=== PATIENT | female | born 1960 | race Caucasian/White ===

== ENCOUNTER → 2017-08-18 | Outpatient (CLI) | payer MEDICARE, OTHER ==
[2017-08-18 15:36] LABS: BASOPHILS ABSOLUTE AUTO 0.05 K/mm3 (0.00-0.23); BASOPHILS PERCENT AUTO 1 % (0-2); EOSINOPHILS ABSOLUTE AUTO 0.38 K/mm3 (0.00-0.68); EOSINOPHILS PERCENT AUTO 5 % (0-6); Hematocrit 44.4 % (33.0-51.0); Hemoglobin 14.5 g/dL (11.5-16.0); IMMATURE GRAN ABSOLUTE AUTO 0.05 K/mm3 (0.00-0.10); IMMATURE GRAN PERCENT AUTO 1 % (0-1); LYMPHOCYTES ABSOLUTE AUTO 2.38 K/mm3 (0.84-5.20); LYMPHOCYTES PERCENT AUTO 31 % (21-46); MONOCYTES ABSOLUTE AUTO 0.77 K/mm3 (0.16-1.47); MONOCYTES PERCENT AUTO 10 % (4-13); Mean Corpuscular HGB 28.7 pg (26.0-34.0); Mean Corpuscular HGB Conc 32.7 g/dL (31.5-36.5); Mean Corpuscular Volume 88 fL (80-100); Mean Platelet Volume 10.2 fL (9.1-12.4); NEUTROPHILS ABSOLUTE AUTO 4.08 K/mm3 (1.96-9.15); NEUTROPHILS PERCENT AUTO 53 % (41-73); Platelet Count 351 K/mm3 (150-400); RDW Coefficient Variation 14.2 % (11.7-14.2); RDW Standard Deviation 45.1 fL (35.1-46.3); Red Blood Cell Count 5.05 M/mm3 (3.80-5.20); White Blood Cell Count 7.71 K/mm3 (4.00-11.30)
[2017-08-18 15:57] LABS: Alanine Aminotransfer (ALT/SGP 50 U/L (12-78); Albumin, Blood 4.3 g/dL (3.4-5.0); Albumin/Globulin Ratio 1.2 (0.8-1.8); Alk Phos 90 U/L (40-126); Anion Gap 10 mmol/L (6-16); Aspartate Aminotrans (AST/SGOT 28 U/L (12-37); Bilirubin, Total 0.4 mg/dL (0.1-1.0); Blood Urea Nitrogen 18 mg/dL (8-24); Bun/Creatinine Ratio 23.4 (12.0-20.0); CO2, Blood 29 mmol/L (21-32); Calcium, Blood 9.9 mg/dL (8.5-10.1); Chloride, Blood 103 mmol/L (98-108); Creatinine, Blood 0.77 mg/dL (0.40-1.00); Globulin, Blood 3.5 g/dL (2.2-4.0); Glomerular Filtration Rate >60 (60-); Glucose, Blood 93 mg/dL (70-99); Potassium, Blood 4.3 mmol/L (3.5-5.5); Sodium, Blood 142 mmol/L (136-145); Total Protein, Blood 7.8 g/dL (6.4-8.2)
== END | disposition home or self-care (01) ==
LOC: LAB EV 15:17 → LAB SHORT 15:17
PROVIDERS: Physician Assistant
DX: J44.9 Chronic obstructive pulmonary disease, unspecified (principal)
CPT/HCPCS: 80053; 85025

== ENCOUNTER → 2018-08-07 | Outpatient (CLI) | payer MEDICARE, OTHER | LOC: LAB SHORT 19:01 → LAB 19:01 | DX: N39.0 Urinary tract infection, site not specified (principal) | CPT/HCPCS: 87086 ==

== ENCOUNTER → 2019-06-19 | Outpatient (CLI) | payer MEDICARE, OTHER ==
[2019-06-20 14:30] LABS: Stool Occult Bld Immuno 1 Negative (NEGATIVE)
== END | disposition home or self-care (01) ==
LOC: LAB SHORT 11:53 → LAB 11:53 → LAB FUT 05-14 15:05
PROVIDERS: Nurse Practitioner Family
DX: Z12.11 Encounter for screening for malignant neoplasm of colon (principal)
CPT/HCPCS: G0328

== ENCOUNTER → 2019-07-03 | Outpatient (CLI) | payer MEDICARE, OTHER | END | disposition home or self-care (01) | LOC: LAB 19:19 → LAB SHORT 19:19 | DX: R82.79 Other abnormal findings on microbiological examination of urine (principal) | CPT/HCPCS: 87086 ==

== ENCOUNTER 2019-09-13 09:44 | Observation (INO) | payer MEDICARE, OTHER ==
[~2019-09-13] VITALS: Ht 167.6 cm; Wt 102.5 kg
[2019-09-13 11:00] LABS: BASOPHILS ABSOLUTE AUTO 0.04 K/mm3 (0.00-0.23); BASOPHILS PERCENT AUTO 1 % (0-2); EOSINOPHILS ABSOLUTE AUTO 0.34 K/mm3 (0.00-0.68); EOSINOPHILS PERCENT AUTO 4 % (0-6); Hematocrit 43.8 % (33.0-51.0); IMMATURE GRAN ABSOLUTE AUTO 0.04 K/mm3 (0.00-0.10); IMMATURE GRAN PERCENT AUTO 1 % (0-1); LYMPHOCYTES ABSOLUTE AUTO 2.42 K/mm3 (0.84-5.20); LYMPHOCYTES PERCENT AUTO 28 % (21-46); MONOCYTES PERCENT AUTO 11 % (4-13); Mean Corpuscular HGB 28.6 pg (26.0-34.0); Mean Corpuscular Volume 90 fL (80-100); Mean Platelet Volume 10.2 fL (9.1-12.4); NEUTROPHILS PERCENT AUTO 56 % (41-73); Platelet Count 293 K/mm3 (150-400); RDW Coefficient Variation 14.8 % (11.7-14.2); RDW Standard Deviation 48.8 fL (35.1-46.3); Red Blood Cell Count 4.89 M/mm3 (3.80-5.20); White Blood Cell Count 8.54 K/mm3 (4.00-11.30)
[2019-09-13 11:15] LABS: Acetaminophen, Random 3.8 ug/mL (10.0-30.0); Alanine Aminotransfer (ALT/SGP 37 U/L (12-78); Albumin, Blood 3.9 g/dL (3.4-5.0); Albumin/Globulin Ratio 1.1 (0.8-1.8); Alk Phos 97 U/L (50-136); Anion Gap 8 mmol/L (6-16); Aspartate Aminotrans (AST/SGOT 30 U/L (12-37); Bilirubin, Total 0.2 mg/dL (0.1-1.0); Blood Urea Nitrogen 9 mg/dL (8-24); Bun/Creatinine Ratio 13.2 (12.0-20.0); CO2, Blood 27 mmol/L (21-32); Calcium, Blood 8.9 mg/dL (8.5-10.1); Chloride, Blood 105 mmol/L (98-108); Creatinine, Blood 0.68 mg/dL (0.40-1.00); Ethanol (Alcohol), Blood, Med <3 mg/dL; Globulin, Blood 3.7 g/dL (2.2-4.0); Glomerular Filtration Rate >60 (60-); Glucose, Blood 95 mg/dL (70-99); Potassium, Blood 4.1 mmol/L (3.5-5.5); Salicylate 6.6 mg/dL (2.8-20.0); Sodium, Blood 140 mmol/L (136-145); Total Protein, Blood 7.6 g/dL (6.4-8.2)
[2019-09-13 11:36] LABS: Source, Urine Clean Catch
[2019-09-13 11:39] LABS: Bilirubin, Urine Neg (Neg); Blood, Urine Neg (Neg); Glucose Qualitative, Urine Neg (Neg); Ketones, Urine Neg (Neg); Leukocyte Esterase, Urine Neg (Neg); Nitrite, Urine Neg (Neg); Protein, Urine Neg (Neg); Urobilinogen, Urine NORM (Normal)
[2019-09-13 11:40] LABS: Appearance, Urine Clear (Clear); Color, Urine Yellow (P-Yellow)
[2019-09-13 11:54] LABS: U Amphetamine Screen Not Detected; U Barbituate Screen Not Detected; U Benzodiazapine Screen Not Detected; U Buprenorphine Screen Not Detected; U Cannabinoids Screen Not Detected; U Cocaine Screen Not Detected; U Methadone Screen Not Detected; U Methamphetamine Screen Not Detected; U Opiates Screen Not Detected; U Oxycodone Screen Not Detected; U Propoxyphene Screen Not Detected
[2019-09-13] MEDS ORDERED: QUETIAPINE FUM400 MG PO (13:15)
[2019-09-13] MEDS ORDERED: BUSP10 PO (13:15)
[2019-09-13] MEDS ORDERED: LEVSOD50 PO (13:16)
[2019-09-13] MEDS ORDERED: ESCITALOPRAM OX20 M1 PO (13:16)
[2019-09-13] MEDS ORDERED: HYDHCL25 PO (13:17)
[2019-09-13] MEDS ORDERED: CYCLOBENZAPRINE5 MG PO (13:17)
[2019-09-13] MEDS ORDERED: Risperidone3 MG PO (13:17)
== END 2019-09-14 12:55 | disposition home or self-care (01) ==
LOC: ER 09:44 → EOR 09:45
PROVIDERS: ADMIT Emergency Medicine
DX: R45.851 Suicidal ideations (principal); R45.850 Homicidal ideations; F25.0 Schizoaffective disorder, bipolar type; J44.9 Chronic obstructive pulmonary disease, unspecified; F32.9 Major depressive disorder, single episode, unspecified; F41.9 Anxiety disorder, unspecified; Z79.899 Other long term (current) drug therapy; Z88.8 Allergy status to other drugs, medicaments and biological substances; Z88.0 Allergy status to penicillin; Z87.891 Personal history of nicotine dependence; G89.29 Other chronic pain
CPT/HCPCS: 36415; 80053; 81003; 81025; 84443; 85025; 99285; G0378; G0480; Q3014

== ENCOUNTER 2019-09-26 09:49 | Emergency (ER) | payer MEDICARE, OTHER ==
[~2019-09-26] VITALS: Ht 170.2 cm; Wt 99.8 kg
[~2019-09-26 09:49] MED LIST: BUSP10 PO; CYCLOBENZAPRINE5 MG PO; ESCITALOPRAM OX20 M1 PO; HYDHCL25 PO; LEVSOD50 PO; QUETIAPINE FUM400 MG PO; Risperidone3 MG PO
[2019-09-26 10:54] LABS: BASOPHILS ABSOLUTE AUTO 0.07 K/mm3 (0.00-0.23); BASOPHILS PERCENT AUTO 1 % (0-2); EOSINOPHILS ABSOLUTE AUTO 0.41 K/mm3 (0.00-0.68); EOSINOPHILS PERCENT AUTO 5 % (0-6); Hematocrit 47.4 % (33.0-51.0); Hemoglobin 15.5 g/dL (11.5-16.0); IMMATURE GRAN ABSOLUTE AUTO 0.08 K/mm3 (0.00-0.10); IMMATURE GRAN PERCENT AUTO 1 % (0-1); LYMPHOCYTES ABSOLUTE AUTO 2.77 K/mm3 (0.84-5.20); LYMPHOCYTES PERCENT AUTO 31 % (21-46); MONOCYTES ABSOLUTE AUTO 0.57 K/mm3 (0.16-1.47); MONOCYTES PERCENT AUTO 6 % (4-13); Mean Corpuscular HGB 29.3 pg (26.0-34.0); Mean Corpuscular HGB Conc 32.7 g/dL (31.5-36.5); Mean Corpuscular Volume 90 fL (80-100); Mean Platelet Volume 9.5 fL (9.1-12.4); NEUTROPHILS ABSOLUTE AUTO 5.17 K/mm3 (1.96-9.15); NEUTROPHILS PERCENT AUTO 57 % (41-73); Platelet Count 346 K/mm3 (150-400); RDW Standard Deviation 49.5 fL (35.1-46.3); Red Blood Cell Count 5.29 M/mm3 (3.80-5.20); White Blood Cell Count 9.07 K/mm3 (4.00-11.30)
[2019-09-26 11:15] LABS: Alanine Aminotransfer (ALT/SGP 28 U/L (12-78); Albumin, Blood 4.1 g/dL (3.4-5.0); Albumin/Globulin Ratio 1.1 (0.8-1.8); Alk Phos 92 U/L (50-136); Anion Gap 5 mmol/L (6-16); Aspartate Aminotrans (AST/SGOT 22 U/L (12-37); Bilirubin, Total 0.2 mg/dL (0.1-1.0); Blood Urea Nitrogen 11 mg/dL (8-24); Bun/Creatinine Ratio 15.7 (12.0-20.0); CO2, Blood 24 mmol/L (21-32); Calcium, Blood 8.7 mg/dL (8.5-10.1); Chloride, Blood 112 mmol/L (98-108); Globulin, Blood 3.9 g/dL (2.2-4.0); Glomerular Filtration Rate >60 (60-); Glucose, Blood 118 mg/dL (70-99); Potassium, Blood 3.8 mmol/L (3.5-5.5); Sodium, Blood 141 mmol/L (136-145)
[2019-09-26 11:18] LABS: Source, Urine Clean Catch
[2019-09-26 11:28] LABS: Bilirubin, Urine Neg (Neg); Blood, Urine 1+ (Neg); Glucose Qualitative, Urine Neg (Neg); Ketones, Urine Neg (Neg); Leukocyte Esterase, Urine 1+ (Neg); Nitrite, Urine Neg (Neg); Protein, Urine Neg (Neg); Urobilinogen, Urine NORM (Normal)
[2019-09-26 11:35] LABS: Appearance, Urine Clear (Clear); Color, Urine Yellow (P-Yellow)
[2019-09-26 11:36] LABS: Bacteria Few /hpf; Red Blood Cells, Urine 0-2 /hpf (0-2); Squamous Epithelial Cells Many /hpf (Few); White Blood Cells, Urine 0-2 /hpf (0-5)
[2019-09-26 11:37] LABS: Transitional Epithelial Cells Many /hpf (0-Rare)
== END 2019-09-26 14:10 | disposition home or self-care (01) ==
LOC: ER 09:49
PROVIDERS: Emergency Medicine
DX: R10.31 Right lower quadrant pain (principal); J44.9 Chronic obstructive pulmonary disease, unspecified; F31.9 Bipolar disorder, unspecified; F41.9 Anxiety disorder, unspecified; Z87.891 Personal history of nicotine dependence; Z88.0 Allergy status to penicillin; Z79.899 Other long term (current) drug therapy
CPT/HCPCS: 36415; 80053; 81001; 85025; 87086; 96374; 99284-25; J1885

== ENCOUNTER 2020-09-18 11:27 | Inpatient (IN) | payer MEDICARE, OTHER ==
[~2020-09-18] VITALS: Ht 170.2 cm; Wt 90.7 kg
[~2020-09-18 11:27] MED LIST changes: -BUSP10 PO; -ESCITALOPRAM OX20 M1 PO; -HYDHCL25 PO; -LEVSOD50 PO; -QUETIAPINE FUM400 MG PO
[2020-09-18 12:30] LABS: BASOPHILS ABSOLUTE AUTO 0.05 K/mm3 (0.00-0.23); BASOPHILS PERCENT AUTO 1 % (0-2); EOSINOPHILS ABSOLUTE AUTO 0.45 K/mm3 (0.00-0.68); EOSINOPHILS PERCENT AUTO 7 % (0-6); Hematocrit 47.9 % (33.0-51.0); Hemoglobin 14.8 g/dL (11.5-16.0); IMMATURE GRAN ABSOLUTE AUTO 0.08 K/mm3 (0.00-0.10); IMMATURE GRAN PERCENT AUTO 1 % (0-1); LYMPHOCYTES ABSOLUTE AUTO 2.35 K/mm3 (0.84-5.20); LYMPHOCYTES PERCENT AUTO 35 % (21-46); MONOCYTES ABSOLUTE AUTO 0.78 K/mm3 (0.16-1.47); MONOCYTES PERCENT AUTO 12 % (4-13); Mean Corpuscular HGB 27.4 pg (26.0-34.0); Mean Corpuscular HGB Conc 30.9 g/dL (31.5-36.5); Mean Corpuscular Volume 89 fL (80-100); Mean Platelet Volume 10.6 fL (9.1-12.4); NEUTROPHILS ABSOLUTE AUTO 3.04 K/mm3 (1.96-9.15); NEUTROPHILS PERCENT AUTO 45 % (41-73); Platelet Count 292 K/mm3 (150-400); RDW Coefficient Variation 15.6 % (11.7-14.2); RDW Standard Deviation 50.6 fL (35.1-46.3); White Blood Cell Count 6.75 K/mm3 (4.00-11.30)
[2020-09-18 12:55] LABS: Alanine Aminotransfer (ALT/SGP 50 U/L (12-78); Albumin, Blood 3.8 g/dL (3.4-5.0); Albumin/Globulin Ratio 0.9 (0.8-1.8); Alk Phos 118 U/L (50-136); Anion Gap 5 mmol/L (6-16); Aspartate Aminotrans (AST/SGOT 46 U/L (12-37); Bilirubin, Total 0.3 mg/dL (0.1-1.0); Blood Urea Nitrogen 12 mg/dL (8-24); Bun/Creatinine Ratio 16.8 (12.0-20.0); CO2, Blood 30 mmol/L (21-32); Calcium, Blood 9.5 mg/dL (8.5-10.1); Chloride, Blood 106 mmol/L (98-108); Creatinine, Blood 0.71 mg/dL (0.40-1.00); Globulin, Blood 4.2 g/dL (2.2-4.0); Glomerular Filtration Rate >60 (60-); Glucose, Blood 117 mg/dL (70-99); Potassium, Blood 4.5 mmol/L (3.5-5.5); Sodium, Blood 141 mmol/L (136-145); Troponin I <0.015 ng/mL (0.000-0.040)
[2020-09-18] MEDS ORDERED: BUSP10 PO (17:20)
[2020-09-18] MEDS ORDERED: HYDHCL25 PO (17:20)
[2020-09-18] MEDS ORDERED: EUTHYROX50 MCG PO (17:21)
[2020-09-18] MEDS ORDERED: OMEPRAZOLE20 MG PO (17:21)
[2020-09-18] MEDS ORDERED: QUETIAPINE FUM400 MG PO (17:22)
[2020-09-18] MEDS ORDERED: ESCITALOPRAM OX20 M1 PO (17:23)
[2020-09-18] MEDS ORDERED: NEURONTIN PO (17:23)
[2020-09-18 20:27] LABS: Adenovirus Not Detected (NOT DETECT); Bordetella pertussis Not Detected (NOT DETECT); Chlamydophila pneumoniae Not Detected (NOT DETECT); Coronavirus 229E Not Detected (NOT DETECT); Coronavirus HKU1 Not Detected (NOT DETECT); Coronavirus NL63 Not Detected (NOT DETECT); Coronavirus OC43 Not Detected (NOT DETECT); Human Metapneumovirus Not Detected (NOT DETECT); Human Rhinovirus/Enterovirus Not Detected (NOT DETECT); Influenza A/2009-H1 Not Detected (NOT DETECT); Influenza A/H1 Not Detected (NOT DETECT); Influenza A/H3 Not Detected (NOT DETECT); Influenza B Not Detected (NOT DETECT); Mycoplasma pneumoniae Not Detected (NOT DETECT); Parainfluenza Virus 1 Not Detected (NOT DETECT); Parainfluenza Virus 2 Not Detected (NOT DETECT); Parainfluenza Virus 3 Not Detected (NOT DETECT); Parainfluenza Virus 4 Not Detected (NOT DETECT); Respiratory Syncytial Virus Not Detected (NOT DETECT); SARS-Cov-2 (COVID-19), BioFire Not Detected (NOT DETECT)
--- NOTE | 2020-09-19 04:55 | NUR ---
MARINA MANAGER SUMMARY A/OX4, SBA TO BATHROOM. C/O MILD SUBSTERNAL CHEST PAIN, NITRO PATCH IN PLACE. TELE RUNNING SR IN THE 60-70S. CURRENTLY ON 2L VIA NC WITH SATS GREATER THAN 92. NO ACUTE CHANGES AT THIS TIME. BED IN LOWEST POSITION WITH CALL LIGHT IN REACH. WILL CONTINUE TO MONITOR AND REPORT TO ONCOMING RN.
--- NOTE | 2020-09-19 17:24 | NUR ---
PT HAS BEEN AOX4 AND COOPERATIVE OF CARE. PT HAD A MILD EDEN EARLIER AND WAS TREATED PER EMAR. PT HAS BEEN INDEPENDENT IN ROOM AND DOING WELL. IV CAME OUT AND NO MORE IV MEDS WERE NEEDED SO DR DUNLAP ADDED A NO IV ACCESS ORDER TO EMAR. PT HAS CALL LIGHT WITHIN REACH. WILL CONTINUE TO MONITOR.
--- NOTE | 2020-09-20 03:44 | NUR ---
GENERAL WAREHOUSE WORKER SUMMARY A/OX4, SBA TO BATHROOM. SLEEP STUDY IN PROGRESS T/O NIGHT. TELE RUNNING SINUS IN THE 70'S. DENIES CHEST PAIN/PRESSURE. NO ACUTE CHANGES AT THIS TIME. BED IN LOWEST POSITION WITH CALL LIGHT IN REACH. WILL CONTINUE TO MONITOR AND REPORT TO ONCOMING RN.
--- NOTE | 2020-09-20 14:15 | NUR ---
echocardiogram complete
--- NOTE | 2020-09-20 17:36 | NUR ---
PT AOX4 AND COOPERATIVE OF CARE. PT IS ON 5L NASAL CANULA AND HAS BEEN ENCOURAGED TO USE SPIROMETER. PT STATES SHE JUST DOES NOTE FEEL VERY GOOD TODAY. PT IS INDEPENDENT IN ROOM AND CALLS APPROPRIATELY. PT RESTING IN BED WILL CONTINUE TO MONITOR CALL LIGHT WITHIN REACH.
--- NOTE | 2020-09-20 18:36 | NUR ---
PT HAD AN INCREASED CBG DUE TO SODA PRIOR TO TEST.
--- NOTE | 2020-09-21 03:51 | NUR ---
REHABILITATION INSPECTOR SUMMARY A/OX4, IND TO BATHROOM. DENIES CHEST PAIN/PRESSURE. TELE IN PLACE RUNNING SR IN THE 70S. CURRENTLY ON 5L VIA NC WITH SATS GREATER THAN 92. ENCOURAGED USE OF INCENTIVE SPIROMETER. NO ACUTE CHANGES AT THIS TIME. BED IN LOWEST POSITION WITH CALL LIGHT IN REACH. WILL CONTINUE TO MONITOR AND REPORT TO ONCOMING RN.
[2020-09-21] MEDS ORDERED: PRED20 PO (15:58)
--- NOTE | 2020-09-21 18:08 | NUR ---
PT DISCHARGED AT 1800. PORTABLE O2 TANK WAS BROUGHT TO ROOM EARLIER FOR DISCHARGE. ALL PAPERWORK WAS REVIEWED AND SIGNED WITH [facility] FOR PT. ALL PERSONAL BELONGINGS COLLECT AND TAKEN WITH PT. NO DISTRESS NOTED. PT HAD FRIEND TO TRANSPORT HOME. [facility] [place].PT ESCORTED OUT IN WHEEL CHAIR TO ENTRANCE BY THIS MODEL MAKER FIREARMS.
[2021-02-16] MEDS ORDERED: HYDHCL25 PO (18:33)
[2021-02-16] MEDS ORDERED: ATOR10 (18:35)
[2021-02-16] MEDS ORDERED: METFORMIN HCL500 M3 PO (18:39)
== END 2020-09-21 17:57 | disposition home or self-care (01) | DRG 189 ==
LOC: ER 11:27 → MEDS 21:24
PROVIDERS: Emergency Medicine; Physician Assistant; ADMIT Internal Medicine
DX: J96.01 Acute respiratory failure with hypoxia (principal); J44.1 Chronic obstructive pulmonary disease with (acute) exacerbation; E66.2 Morbid (severe) obesity with alveolar hypoventilation; K76.0 Fatty (change of) liver, not elsewhere classified; E03.9 Hypothyroidism, unspecified; E88.81 Metabolic syndrome and other insulin resistance; K21.9 Gastro-esophageal reflux disease without esophagitis; M79.7 Fibromyalgia; Z87.891 Personal history of nicotine dependence; F25.0 Schizoaffective disorder, bipolar type; Z68.31 Body mass index [BMI] 31.0-31.9, adult; G47.30 Sleep apnea, unspecified; Z20.822 Contact with and (suspected) exposure to COVID-19
CPT/HCPCS: 0202U; 36415; 71046; 71260; 80053; 82947; 83880; 84145; 84443; 84484; 85025; 85379; 93005; 93010; 93306; 94640; 94760; 94761; 94762; 96374-59; 99285-25; A9270; J1650; J1885; J2930; J7512; Q9967

== ENCOUNTER 2020-11-23 11:38 | Emergency (ER) | payer MEDICARE, OTHER ==
[~2020-11-23] VITALS: Ht 165.1 cm; Wt 102.1 kg
[~2020-11-23 11:38] MED LIST changes: +BUSP10 PO; +ESCITALOPRAM OX20 M1 PO; +EUTHYROX50 MCG PO; +HYDHCL25 PO; +NEURONTIN PO; +OMEPRAZOLE20 MG PO; +PRED20 PO; +QUETIAPINE FUM400 MG PO
[2020-11-23 12:20] LABS: BASOPHILS ABSOLUTE AUTO 0.07 K/mm3 (0.00-0.23); BASOPHILS PERCENT AUTO 1 % (0-2); EOSINOPHILS ABSOLUTE AUTO 0.38 K/mm3 (0.00-0.68); EOSINOPHILS PERCENT AUTO 5 % (0-6); Hematocrit 44.3 % (33.0-51.0); Hemoglobin 14.2 g/dL (11.5-16.0); IMMATURE GRAN ABSOLUTE AUTO 0.08 K/mm3 (0.00-0.10); IMMATURE GRAN PERCENT AUTO 1 % (0-1); LYMPHOCYTES ABSOLUTE AUTO 2.49 K/mm3 (0.84-5.20); LYMPHOCYTES PERCENT AUTO 31 % (21-46); MONOCYTES ABSOLUTE AUTO 0.92 K/mm3 (0.16-1.47); MONOCYTES PERCENT AUTO 11 % (4-13); Mean Corpuscular HGB Conc 32.1 g/dL (31.5-36.5); Mean Corpuscular Volume 87 fL (80-100); Mean Platelet Volume 10.3 fL (9.1-12.4); NEUTROPHILS ABSOLUTE AUTO 4.12 K/mm3 (1.96-9.15); NEUTROPHILS PERCENT AUTO 51 % (41-73); Platelet Count 325 K/mm3 (150-400); RDW Coefficient Variation 15.5 % (11.7-14.2); RDW Standard Deviation 49.4 fL (35.1-46.3); Red Blood Cell Count 5.07 M/mm3 (3.80-5.20); White Blood Cell Count 8.06 K/mm3 (4.00-11.30)
[2020-11-23 12:50] LABS: Alanine Aminotransfer (ALT/SGP 58 U/L (12-78); Albumin, Blood 3.9 g/dL (3.4-5.0); Alk Phos 125 U/L (50-136); Anion Gap 4 mmol/L (6-16); Aspartate Aminotrans (AST/SGOT 40 U/L (12-37); Bilirubin, Total 0.3 mg/dL (0.1-1.0); Blood Urea Nitrogen 9 mg/dL (8-24); Bun/Creatinine Ratio 14.2 (12.0-20.0); CO2, Blood 28 mmol/L (21-32); Calcium, Blood 9.1 mg/dL (8.5-10.1); Chloride, Blood 107 mmol/L (98-108); Creatinine, Blood 0.63 mg/dL (0.40-1.00); Globulin, Blood 3.9 g/dL (2.2-4.0); Glomerular Filtration Rate >60 (60-); Glucose, Blood 120 mg/dL (70-99); Potassium, Blood 4.1 mmol/L (3.5-5.5); Sodium, Blood 139 mmol/L (136-145); Total Protein, Blood 7.8 g/dL (6.4-8.2)
[2020-11-23 14:11] LABS: Source, Urine Clean Catch
[2020-11-23 14:14] LABS: Appearance, Urine Hazy (Clear); Bilirubin, Urine Neg (Neg); Blood, Urine 5+ (Neg); Color, Urine Yellow (P-Yellow); Glucose Qualitative, Urine Neg (Neg); Ketones, Urine Neg (Neg); Leukocyte Esterase, Urine 3+ (Neg); Nitrite, Urine Neg (Neg); Protein, Urine 1+ (Neg); Specific Gravity, Urine 1.015 (1.003-1.022); Urobilinogen, Urine NORM (Normal)
[2020-11-23 14:26] LABS: Bacteria Many /hpf; Squamous Epithelial Cells Many /hpf (Few); White Blood Cells, Urine 25-50 /hpf (0-5)
[2020-11-23 14:27] LABS: Red Blood Cells, Urine 0-2 /hpf (0-2)
[2020-11-23 14:28] LABS: Transitional Epithelial Cells Rare /hpf (0-Rare)
[2020-11-23] MEDS ORDERED: SULTRIDS PO (15:04)
== END 2020-11-23 15:17 | disposition home or self-care (01) ==
LOC: ER 11:38
PROVIDERS: Physician Assistant
DX: N20.0 Calculus of kidney (principal); Z79.899 Other long term (current) drug therapy; N39.0 Urinary tract infection, site not specified
CPT/HCPCS: 36415; 74176; 76830; 76856; 80053; 81001; 83690; 85025; 87086; 93005; 93010; 96374; 99284-25; A9270-GY; J2405

== ENCOUNTER 2020-12-09 14:27 | Emergency (ER) | payer MEDICARE ==
[~2020-12-09] VITALS: Ht 165.1 cm; Wt 115.7 kg
[~2020-12-09 14:27] MED LIST changes: +SULTRIDS PO
[2020-12-09 16:05] LABS: BASOPHILS ABSOLUTE AUTO 0.04 K/mm3 (0.00-0.23); BASOPHILS PERCENT AUTO 1 % (0-2); EOSINOPHILS ABSOLUTE AUTO 0.69 K/mm3 (0.00-0.68); EOSINOPHILS PERCENT AUTO 13 % (0-6); Hematocrit 44.3 % (33.0-51.0); Hemoglobin 14.3 g/dL (11.5-16.0); IMMATURE GRAN ABSOLUTE AUTO 0.03 K/mm3 (0.00-0.10); IMMATURE GRAN PERCENT AUTO 1 % (0-1); LYMPHOCYTES ABSOLUTE AUTO 1.79 K/mm3 (0.84-5.20); LYMPHOCYTES PERCENT AUTO 32 % (21-46); MONOCYTES ABSOLUTE AUTO 0.88 K/mm3 (0.16-1.47); MONOCYTES PERCENT AUTO 16 % (4-13); Mean Corpuscular HGB 28.4 pg (26.0-34.0); Mean Corpuscular HGB Conc 32.3 g/dL (31.5-36.5); Mean Corpuscular Volume 88 fL (80-100); Mean Platelet Volume 10.6 fL (9.1-12.4); NEUTROPHILS ABSOLUTE AUTO 2.11 K/mm3 (1.96-9.15); NEUTROPHILS PERCENT AUTO 38 % (41-73); Platelet Count 367 K/mm3 (150-400); RDW Coefficient Variation 15.9 % (11.7-14.2); RDW Standard Deviation 50.6 fL (35.1-46.3); Red Blood Cell Count 5.03 M/mm3 (3.80-5.20); White Blood Cell Count 5.54 K/mm3 (4.00-11.30)
[2020-12-09 16:56] LABS: Source, Urine Clean Catch
[2020-12-09 17:20] LABS: Appearance, Urine Hazy (Clear); Bilirubin, Urine Neg (Neg); Blood, Urine Neg (Neg); Color, Urine Yellow (P-Yellow); Glucose Qualitative, Urine Neg (Neg); Ketones, Urine Neg (Neg); Leukocyte Esterase, Urine Neg (Neg); Nitrite, Urine Neg (Neg); Protein, Urine Neg (Neg); Urobilinogen, Urine NORM (Normal)
[2020-12-09 17:24] LABS: Alanine Aminotransfer (ALT/SGP 57 U/L (12-78); Albumin, Blood 3.7 g/dL (3.4-5.0); Albumin/Globulin Ratio 0.9 (0.8-1.8); Alk Phos 111 U/L (50-136); Anion Gap 2 mmol/L (6-16); Aspartate Aminotrans (AST/SGOT 44 U/L (12-37); Bilirubin, Total 0.3 mg/dL (0.1-1.0); Blood Urea Nitrogen 10 mg/dL (8-24); CO2, Blood 29 mmol/L (21-32); Calcium, Blood 8.8 mg/dL (8.5-10.1); Chloride, Blood 106 mmol/L (98-108); Creatinine, Blood 0.77 mg/dL (0.40-1.00); Glomerular Filtration Rate >60 (60-); Glucose, Blood 95 mg/dL (70-99); Potassium, Blood 4.2 mmol/L (3.5-5.5); Sodium, Blood 137 mmol/L (136-145); Total Protein, Blood 7.7 g/dL (6.4-8.2)
[2020-12-09 17:32] LABS: Bacteria Many /hpf; Red Blood Cells, Urine 0-2 /hpf (0-2); Squamous Epithelial Cells Mod /hpf (Few); White Blood Cells, Urine 0-2 /hpf (0-5)
[2020-12-09] MEDS ORDERED: LIDO700A20 TOP (17:48)
[2021-02-16] MEDS ORDERED: HYDHCL25 PO (18:33)
[2021-02-16] MEDS ORDERED: ATOR10 (18:35)
[2021-02-16] MEDS ORDERED: METFORMIN HCL500 M3 PO (18:39)
== END 2020-12-09 18:25 | disposition home or self-care (01) ==
LOC: ER 14:27
PROVIDERS: Physician Assistant
DX: M54.9 Dorsalgia, unspecified (principal); J44.9 Chronic obstructive pulmonary disease, unspecified; Z88.0 Allergy status to penicillin; Z88.8 Allergy status to other drugs, medicaments and biological substances; Z79.899 Other long term (current) drug therapy; Z87.891 Personal history of nicotine dependence
CPT/HCPCS: 36415; 80053; 81001; 85025; 87086; 99284; A9270

== ENCOUNTER 2021-03-07 14:16 | Observation (INO) | payer MEDICARE ==
[~2021-03-07] VITALS: Ht 170.2 cm; Wt 115.7 kg
[~2021-03-07 14:16] MED LIST changes: +ATOR10; +LIDO700A20 TOP; +METFORMIN HCL500 M3 PO
[2021-03-07 15:19] LABS: BASOPHILS ABSOLUTE AUTO 0.07 K/mm3 (0.00-0.23); BASOPHILS PERCENT AUTO 1 % (0-2); EOSINOPHILS ABSOLUTE AUTO 0.24 K/mm3 (0.00-0.68); EOSINOPHILS PERCENT AUTO 2 % (0-6); Hematocrit 48.6 % (33.0-51.0); Hemoglobin 15.6 g/dL (11.5-16.0); IMMATURE GRAN ABSOLUTE AUTO 0.08 K/mm3 (0.00-0.10); IMMATURE GRAN PERCENT AUTO 1 % (0-1); LYMPHOCYTES ABSOLUTE AUTO 2.67 K/mm3 (0.84-5.20); LYMPHOCYTES PERCENT AUTO 25 % (21-46); MONOCYTES ABSOLUTE AUTO 0.93 K/mm3 (0.16-1.47); MONOCYTES PERCENT AUTO 9 % (4-13); Mean Corpuscular HGB 28.5 pg (26.0-34.0); Mean Corpuscular HGB Conc 32.1 g/dL (31.5-36.5); Mean Corpuscular Volume 89 fL (80-100); Mean Platelet Volume 10.1 fL (9.1-12.4); NEUTROPHILS ABSOLUTE AUTO 6.85 K/mm3 (1.96-9.15); NEUTROPHILS PERCENT AUTO 63 % (41-73); Platelet Count 444 K/mm3 (150-400); RDW Standard Deviation 48.7 fL (35.1-46.3); Red Blood Cell Count 5.47 M/mm3 (3.80-5.20); White Blood Cell Count 10.84 K/mm3 (4.00-11.30)
[2021-03-07 15:49] LABS: Alanine Aminotransfer (ALT/SGP 52 U/L (12-78); Albumin, Blood 3.8 g/dL (3.4-5.0); Albumin/Globulin Ratio 0.8 (0.8-1.8); Alk Phos 115 U/L (50-136); Anion Gap 3 mmol/L (6-16); Aspartate Aminotrans (AST/SGOT 46 U/L (12-37); Bilirubin, Total 0.5 mg/dL (0.1-1.0); Blood Urea Nitrogen 19 mg/dL (8-24); Bun/Creatinine Ratio 29.1 (12.0-20.0); CO2, Blood 29 mmol/L (21-32); Calcium, Blood 9.5 mg/dL (8.5-10.1); Chloride, Blood 106 mmol/L (98-108); Creatinine, Blood 0.65 mg/dL (0.40-1.00); Ethanol (Alcohol), Blood, Med <3 mg/dL; Globulin, Blood 4.7 g/dL (2.2-4.0); Glomerular Filtration Rate >60 (60-); Glucose, Blood 146 mg/dL (70-99); Potassium, Blood 4.4 mmol/L (3.5-5.5); Salicylate <1.7 mg/dL (2.8-20.0); Sodium, Blood 138 mmol/L (136-145); Total Protein, Blood 8.5 g/dL (6.4-8.2)
[2021-03-07 15:53] LABS: Acetaminophen, Random <2.0 ug/mL (10.0-30.0)
[2021-03-07] MEDS ORDERED: CLOZ100 PO (16:29)
[2021-03-07 16:41] LABS: Source, Urine Clean Catch
[2021-03-07 16:47] LABS: Appearance, Urine Clear (Clear); Bilirubin, Urine Neg (Neg); Blood, Urine Neg (Neg); Color, Urine Yellow (P-Yellow); Glucose Qualitative, Urine Neg (Neg); Ketones, Urine Neg (Neg); Leukocyte Esterase, Urine 1+ (Neg); Nitrite, Urine Neg (Neg); Protein, Urine 1+ (Neg); Urobilinogen, Urine 2+ (Normal)
[2021-03-07 16:57] LABS: Bacteria Few /hpf; Red Blood Cells, Urine 0-2 /hpf (0-2); Squamous Epithelial Cells Mod /hpf (Few)
[2021-03-07 17:03] LABS: U Benzodiazapine Screen DETECTED
[2021-03-07 17:04] LABS: U Amphetamine Screen Not Detected; U Barbituate Screen Not Detected; U Buprenorphine Screen Not Detected; U Cannabinoids Screen Not Detected; U Cocaine Screen Not Detected; U Methadone Screen Not Detected; U Methamphetamine Screen Not Detected; U Opiates Screen Not Detected; U Oxycodone Screen Not Detected; U Phencyclidine Screen Not Detected; U Propoxyphene Screen Not Detected
[2021-03-08 03:29] LABS: SARS-Cov-2 (COVID-19) PCR, MMC NEGATIVE (NEGATIVE)
== END 2021-03-09 20:41 | disposition home or self-care (01) ==
LOC: ER 14:16 → EOR 14:17
PROVIDERS: Physician Assistant; ADMIT Emergency Medicine
DX: F25.0 Schizoaffective disorder, bipolar type (principal); E11.9 Type 2 diabetes mellitus without complications; E03.9 Hypothyroidism, unspecified; K21.9 Gastro-esophageal reflux disease without esophagitis; E66.01 Morbid (severe) obesity due to excess calories; J44.9 Chronic obstructive pulmonary disease, unspecified; G89.29 Other chronic pain; Z88.0 Allergy status to penicillin; Z79.84 Long term (current) use of oral hypoglycemic drugs; Z91.5 Personal history of self-harm; Z81.8 Family history of other mental and behavioral disorders; Z20.822 Contact with and (suspected) exposure to COVID-19
CPT/HCPCS: 36415; 80053; 81001; 85025; 86592; 87086; 99285; A9270; G0378; G0480; U0004

== ENCOUNTER 2021-12-03 04:56 | Observation (INO) | payer MEDICARE ==
[~2021-12-03] VITALS: Ht 170.2 cm; Wt 65.8 kg
[~2021-12-03 04:56] MED LIST changes: +ATORVASTATIN CA20 MG PO; +CLOZ100 PO; +DOXE50 PO; +GABA300 PO; +HYDROXYZINE PAM25 MG PO; +[UNRECOGNIZED DRUG - CODE] PO
[2021-12-03 09:42] LABS: Hematocrit 41.4 % (33.0-51.0); Hemoglobin 13.7 g/dL (11.5-16.0); Mean Corpuscular HGB 28.4 pg (26.0-34.0); Mean Corpuscular HGB Conc 33.1 g/dL (31.5-36.5); Mean Corpuscular Volume 86 fL (80-100); Mean Platelet Volume 10.2 fL (9.1-12.4); Platelet Count 300 K/mm3 (150-400); RDW Coefficient Variation 12.7 % (11.7-14.2); RDW Standard Deviation 39.7 fL (35.1-46.3); Red Blood Cell Count 4.82 M/mm3 (3.80-5.20); White Blood Cell Count 6.78 K/mm3 (4.00-11.30)
[2021-12-03 10:02] LABS: Ethanol (Alcohol), Blood, Med <3 mg/dL; Salicylate <1.7 mg/dL (2.8-20.0)
[2021-12-03 10:05] LABS: Acetaminophen, Random <2.0 ug/mL (10.0-30.0); Alanine Aminotransfer (ALT/SGP 26 U/L (12-78); Albumin, Blood 3.3 g/dL (3.4-5.0); Albumin/Globulin Ratio 0.9 (0.8-1.8); Alk Phos 63 U/L (50-136); Anion Gap 7 mmol/L (6-16); Aspartate Aminotrans (AST/SGOT 13 U/L (12-37); Bilirubin, Total 0.6 mg/dL (0.1-1.0); Blood Urea Nitrogen 10 mg/dL (8-24); CO2, Blood 26 mmol/L (21-32); Calcium, Blood 8.2 mg/dL (8.5-10.1); Chloride, Blood 104 mmol/L (98-108); Creatinine, Blood 0.53 mg/dL (0.40-1.00); Globulin, Blood 3.6 g/dL (2.2-4.0); Glomerular Filtration Rate >60 (60-); Glucose, Blood 116 mg/dL (70-99); Potassium, Blood 3.3 mmol/L (3.5-5.5); Sodium, Blood 137 mmol/L (136-145); Total Protein, Blood 6.9 g/dL (6.4-8.2)
[2021-12-03 10:10] LABS: BAND PERCENT MAN 20 % (0-8); BASOPHILS PERCENT MAN 0 % (0-2); EOSINOPHILS ABSOLUTE MAN 0.33 K/mm3 (0.00-0.68); EOSINOPHILS PERCENT MAN 5 % (0-6); LYMPHOCYTES ABSOLUTE MAN 1.83 K/mm3 (0.84-5.20); LYMPHOCYTES PERCENT MAN 27 % (21-46); MONOCYTES ABSOLUTE MAN 1.55 K/mm3 (0.16-1.47); MONOCYTES PERCENT MAN 23 % (4-13); NEUTROPHILS ABSOLUTE MAN 3.05 K/mm3 (1.96-9.15); SEG NEUTROPHILS PERCENT MAN 25 % (41-73); TOTAL CELLS COUNTED 100
[2021-12-03 10:59] LABS: Influenza A, PCR NEGATIVE (NEGATIVE); Influenza B, PCR NEGATIVE (NEGATIVE); Resp Syncytial Virus, PCR NEGATIVE (NEGATIVE); SARS-Cov-2 (COVID-19) PCR, MMC NEGATIVE (NEGATIVE)
[2021-12-03 22:09] LABS: Source, Urine Clean Catch
[2021-12-03 22:17] LABS: Bilirubin, Urine Neg (Neg); Blood, Urine 1+ (Neg); Glucose Qualitative, Urine Neg (Neg); Ketones, Urine Neg (Neg); Leukocyte Esterase, Urine Neg (Neg); Nitrite, Urine Neg (Neg); Protein, Urine 1+ (Neg); Urobilinogen, Urine NORM (Normal)
[2021-12-03 22:27] LABS: U Amphetamine Screen Not Detected; U Barbituate Screen Not Detected; U Methamphetamine Screen Not Detected
[2021-12-03 22:28] LABS: U Benzodiazapine Screen DETECTED; U Buprenorphine Screen Not Detected; U Cannabinoids Screen DETECTED; U Cocaine Screen Not Detected; U Methadone Screen Not Detected; U Opiates Screen Not Detected; U Oxycodone Screen Not Detected; U Phencyclidine Screen Not Detected; U Propoxyphene Screen Not Detected
[2021-12-03 22:41] LABS: Appearance, Urine Clear (Clear); Color, Urine Yellow (P-Yellow)
[2021-12-03 22:44] LABS: Bacteria Not Seen /hpf; Red Blood Cells, Urine 0-2 /hpf (0-2); Squamous Epithelial Cells Not Seen /hpf (Few); White Blood Cells, Urine Not Seen /hpf (0-5)
== END 2021-12-10 12:30 | disposition home or self-care (01) ==
LOC: ER 04:56 → EOR 04:57
PROVIDERS: ADMIT Emergency Medicine
DX: F25.0 Schizoaffective disorder, bipolar type (principal); K76.0 Fatty (change of) liver, not elsewhere classified; N28.1 Cyst of kidney, acquired; D72.825 Bandemia; R10.31 Right lower quadrant pain; G89.29 Other chronic pain; E03.9 Hypothyroidism, unspecified; E11.9 Type 2 diabetes mellitus without complications; E78.5 Hyperlipidemia, unspecified; F45.8 Other somatoform disorders; E66.9 Obesity, unspecified; J44.9 Chronic obstructive pulmonary disease, unspecified; F17.290 Nicotine dependence, other tobacco product, uncomplicated; Z88.0 Allergy status to penicillin; Z79.899 Other long term (current) drug therapy; Z79.84 Long term (current) use of oral hypoglycemic drugs; Z20.822 Contact with and (suspected) exposure to COVID-19
CPT/HCPCS: 0241U; 71045; 80053; 81001; 81025; 83036; 85025; 86592; 93005; 93010; 96372; 99285-25; A9270; G0378; G0480; J1885; J2060

== ENCOUNTER 2021-12-11 23:41 | Emergency (ER) | payer MEDICARE ==
[~2021-12-11] VITALS: Ht 167.6 cm; Wt 63.5 kg
== END 2021-12-12 00:33 | disposition home or self-care (01) ==
LOC: ER 23:41
DX: R10.2 Pelvic and perineal pain (principal); J44.9 Chronic obstructive pulmonary disease, unspecified; F31.9 Bipolar disorder, unspecified; F41.9 Anxiety disorder, unspecified; Z79.899 Other long term (current) drug therapy; Z79.84 Long term (current) use of oral hypoglycemic drugs; Z88.0 Allergy status to penicillin
CPT/HCPCS: 99283

== ENCOUNTER 2022-03-25 10:38 | Observation (INO) | payer MEDICARE ==
[~2022-03-25] VITALS: Ht 170.2 cm; Wt 90.7 kg
[2022-03-25 14:34] LABS: BASOPHILS ABSOLUTE AUTO 0.07 K/mm3 (0.00-0.23); BASOPHILS PERCENT AUTO 1 % (0-2); EOSINOPHILS ABSOLUTE AUTO 0.07 K/mm3 (0.00-0.68); EOSINOPHILS PERCENT AUTO 1 % (0-6); Hematocrit 48.7 % (33.0-51.0); Hemoglobin 15.9 g/dL (11.5-16.0); IMMATURE GRAN ABSOLUTE AUTO 0.04 K/mm3 (0.00-0.10); IMMATURE GRAN PERCENT AUTO 0 % (0-1); LYMPHOCYTES ABSOLUTE AUTO 3.24 K/mm3 (0.84-5.20); LYMPHOCYTES PERCENT AUTO 31 % (21-46); MONOCYTES ABSOLUTE AUTO 0.93 K/mm3 (0.16-1.47); MONOCYTES PERCENT AUTO 9 % (4-13); Mean Corpuscular HGB 28.9 pg (26.0-34.0); Mean Corpuscular HGB Conc 32.6 g/dL (31.5-36.5); Mean Corpuscular Volume 89 fL (80-100); Mean Platelet Volume 10.5 fL (9.1-12.4); NEUTROPHILS ABSOLUTE AUTO 6.16 K/mm3 (1.96-9.15); NEUTROPHILS PERCENT AUTO 59 % (41-73); Platelet Count 345 K/mm3 (150-400); RDW Coefficient Variation 13.6 % (11.7-14.2); RDW Standard Deviation 43.9 fL (35.1-46.3); White Blood Cell Count 10.51 K/mm3 (4.00-11.30)
[2022-03-25 14:55] LABS: Alanine Aminotransfer (ALT/SGP 33 U/L (12-78); Albumin, Blood 4.3 g/dL (3.4-5.0); Albumin/Globulin Ratio 1.1 (0.8-1.8); Alk Phos 79 U/L (50-136); Anion Gap 8 mmol/L (6-16); Aspartate Aminotrans (AST/SGOT 23 U/L (12-37); Bilirubin, Total 0.6 mg/dL (0.1-1.0); Blood Urea Nitrogen 13 mg/dL (8-24); Bun/Creatinine Ratio 19.6 (12.0-20.0); CO2, Blood 26 mmol/L (21-32); Calcium, Blood 9.8 mg/dL (8.5-10.1); Chloride, Blood 106 mmol/L (98-108); Creatinine, Blood 0.66 mg/dL (0.40-1.00); Ethanol (Alcohol), Blood, Med <3 mg/dL; Globulin, Blood 3.8 g/dL (2.2-4.0); Glomerular Filtration Rate 101 (60-); Glucose, Blood 102 mg/dL (70-99); Potassium, Blood 3.7 mmol/L (3.5-5.5); Salicylate <1.7 mg/dL (2.8-20.0); Sodium, Blood 140 mmol/L (136-145); Total Protein, Blood 8.1 g/dL (6.4-8.2)
[2022-03-25 14:57] LABS: Acetaminophen, Random <2.0 ug/mL (10.0-30.0)
[2022-03-25 15:01] LABS: Source, Urine Clean Catch
[2022-03-25 15:44] LABS: Appearance, Urine Hazy (Clear); Blood, Urine 1+ (Neg); Color, Urine Amber (P-Yellow); Glucose Qualitative, Urine Neg (Neg); Ketones, Urine 2+ (Neg); Leukocyte Esterase, Urine 1+ (Neg); Nitrite, Urine Neg (Neg); Protein, Urine 2+ (Neg); Urobilinogen, Urine NORM (Normal)
[2022-03-25 16:00] LABS: Bilirubin, Urine 1+ (Neg)
[2022-03-25 16:01] LABS: Bacteria Many /hpf; Calcium Oxalate Crystals Few /hpf; Mucus Light (0-Heavy); Squamous Epithelial Cells Few /hpf (Few)
[2022-03-25 16:02] LABS: Red Blood Cells, Urine 0-2 /hpf (0-2)
[2022-03-25 16:08] LABS: U Amphetamine Screen Not Detected; U Barbituate Screen Not Detected; U Benzodiazapine Screen Not Detected; U Buprenorphine Screen Not Detected; U Cannabinoids Screen DETECTED; U Cocaine Screen Not Detected; U Methadone Screen Not Detected; U Methamphetamine Screen Not Detected; U Opiates Screen Not Detected; U Oxycodone Screen Not Detected; U Phencyclidine Screen Not Detected; U Propoxyphene Screen Not Detected
[2022-03-25 17:40] LABS: Influenza A, PCR NEGATIVE (NEGATIVE); Influenza B, PCR NEGATIVE (NEGATIVE); Resp Syncytial Virus, PCR NEGATIVE (NEGATIVE); SARS-Cov-2 (COVID-19) PCR, MMC NEGATIVE (NEGATIVE)
[2022-04-01] MEDS ORDERED: QUET200 PO (15:55)
[2022-04-01] MEDS ORDERED: HYDHCL25 PO (15:56)
== END 2022-04-01 17:24 | disposition home or self-care (01) ==
LOC: ER 10:38 → EOR 10:39
PROVIDERS: Physician Assistant; ADMIT Emergency Medicine
DX: F25.0 Schizoaffective disorder, bipolar type (principal); J44.9 Chronic obstructive pulmonary disease, unspecified; R94.31 Abnormal electrocardiogram [ECG] [EKG]; E78.5 Hyperlipidemia, unspecified; E66.9 Obesity, unspecified; E03.9 Hypothyroidism, unspecified; K21.9 Gastro-esophageal reflux disease without esophagitis; U07.1 COVID-19; Z88.0 Allergy status to penicillin; Z87.891 Personal history of nicotine dependence
CPT/HCPCS: 0241U; 80053; 81001; 81025; 85025; 87086; 93005; 93010; 94640; 94664; 96372; 99285-25; A9270; G0378; G0480; J1790; M0222; Q3014

== ENCOUNTER 2022-05-18 10:26 | Emergency (ER) | payer MEDICARE ==
[~2022-05-18] VITALS: Ht 170.2 cm; Wt 65.8 kg
[~2022-05-18 10:26] MED LIST changes: +QUET200 PO
[2022-05-18 11:07] LABS: BASOPHILS ABSOLUTE AUTO 0.04 K/mm3 (0.00-0.23); BASOPHILS PERCENT AUTO 1 % (0-2); EOSINOPHILS ABSOLUTE AUTO 0.11 K/mm3 (0.00-0.68); EOSINOPHILS PERCENT AUTO 1 % (0-6); Hematocrit 46.6 % (33.0-51.0); Hemoglobin 15.1 g/dL (11.5-16.0); IMMATURE GRAN ABSOLUTE AUTO 0.03 K/mm3 (0.00-0.10); IMMATURE GRAN PERCENT AUTO 0 % (0-1); LYMPHOCYTES PERCENT AUTO 26 % (21-46); MONOCYTES ABSOLUTE AUTO 0.63 K/mm3 (0.16-1.47); MONOCYTES PERCENT AUTO 8 % (4-13); Mean Corpuscular HGB 28.7 pg (26.0-34.0); Mean Corpuscular HGB Conc 32.4 g/dL (31.5-36.5); Mean Corpuscular Volume 89 fL (80-100); Mean Platelet Volume 10.3 fL (9.1-12.4); NEUTROPHILS ABSOLUTE AUTO 5.28 K/mm3 (1.96-9.15); NEUTROPHILS PERCENT AUTO 65 % (41-73); Platelet Count 342 K/mm3 (150-400); RDW Standard Deviation 45.1 fL (35.1-46.3); Red Blood Cell Count 5.26 M/mm3 (3.80-5.20); White Blood Cell Count 8.19 K/mm3 (4.00-11.30)
[2022-05-18 11:17] LABS: Albumin, Blood 3.9 g/dL (3.4-5.0); Bilirubin, Total 0.5 mg/dL (0.1-1.0); Bun/Creatinine Ratio 13.9 (12.0-20.0); Calcium, Blood 9.3 mg/dL (8.5-10.1); Creatinine, Blood 0.58 mg/dL (0.40-1.00); Globulin, Blood 3.9 g/dL (2.2-4.0); Potassium, Blood 3.5 mmol/L (3.5-5.5); Total Protein, Blood 7.8 g/dL (6.4-8.2)
[2022-05-18 12:33] LABS: Source, Urine Clean Catch
[2022-05-18] MEDS ORDERED: PROM25 PO ×2 (12:58→13:45)
[2022-05-18 13:00] LABS: Appearance, Urine Cloudy (Clear); Bilirubin, Urine Neg (Neg); Blood, Urine 2+ (Neg); Color, Urine Yellow (P-Yellow); Glucose Qualitative, Urine Neg (Neg); Ketones, Urine Neg (Neg); Leukocyte Esterase, Urine 3+ (Neg); Nitrite, Urine Neg (Neg); Protein, Urine 1+ (Neg); Urobilinogen, Urine NORM (Normal)
[2022-05-18 13:10] LABS: Bacteria Many /hpf; Red Blood Cells, Urine 0-2 /hpf (0-2); Squamous Epithelial Cells Many /hpf (Few)
[2022-05-18 13:11] LABS: Transitional Epithelial Cells Rare /hpf (0-Rare)
[2022-05-18 13:12] LABS: Calcium Oxalate Crystals Rare /hpf
== END 2022-05-18 13:49 | disposition home or self-care (01) ==
LOC: ER 10:26
PROVIDERS: Physician Assistant
DX: R11.2 Nausea with vomiting, unspecified (principal); R42 Dizziness and giddiness; J44.9 Chronic obstructive pulmonary disease, unspecified; F31.9 Bipolar disorder, unspecified; F25.0 Schizoaffective disorder, bipolar type; Z87.891 Personal history of nicotine dependence; Z79.899 Other long term (current) drug therapy
CPT/HCPCS: 80053; 81001; 83690; 85025; 87086; 93005; 93010; J2405; J2550

== ENCOUNTER 2022-05-30 10:32 | Emergency (ER) | payer MEDICARE ==
[~2022-05-30] VITALS: Ht 170.2 cm; Wt 68.0 kg
[~2022-05-30 10:32] MED LIST changes: +PROM25 PO
[2022-05-30 13:53] LABS: BASOPHILS ABSOLUTE AUTO 0.04 K/mm3 (0.00-0.23); BASOPHILS PERCENT AUTO 0 % (0-2); EOSINOPHILS ABSOLUTE AUTO 0.03 K/mm3 (0.00-0.68); EOSINOPHILS PERCENT AUTO 0 % (0-6); Hematocrit 44.1 % (33.0-51.0); Hemoglobin 15.3 g/dL (11.5-16.0); IMMATURE GRAN ABSOLUTE AUTO 0.06 K/mm3 (0.00-0.10); IMMATURE GRAN PERCENT AUTO 1 % (0-1); LYMPHOCYTES ABSOLUTE AUTO 1.83 K/mm3 (0.84-5.20); LYMPHOCYTES PERCENT AUTO 15 % (21-46); MONOCYTES ABSOLUTE AUTO 0.97 K/mm3 (0.16-1.47); MONOCYTES PERCENT AUTO 8 % (4-13); Mean Corpuscular HGB 29.5 pg (26.0-34.0); Mean Corpuscular HGB Conc 34.7 g/dL (31.5-36.5); Mean Corpuscular Volume 85 fL (80-100); Mean Platelet Volume 10.6 fL (9.1-12.4); NEUTROPHILS PERCENT AUTO 77 % (41-73); Platelet Count 335 K/mm3 (150-400); RDW Coefficient Variation 13.5 % (11.7-14.2); RDW Standard Deviation 42.3 fL (35.1-46.3); Red Blood Cell Count 5.18 M/mm3 (3.80-5.20); White Blood Cell Count 12.63 K/mm3 (4.00-11.30)
[2022-05-30 14:23] LABS: Albumin, Blood 4.1 g/dL (3.4-5.0); Albumin/Globulin Ratio 1.1 (0.8-1.8); Bilirubin, Total 0.6 mg/dL (0.1-1.0); Bun/Creatinine Ratio 20.8 (12.0-20.0); Calcium, Blood 9.8 mg/dL (8.5-10.1); Creatinine, Blood 0.63 mg/dL (0.40-1.00); Globulin, Blood 3.9 g/dL (2.2-4.0); Potassium, Blood 2.8 mmol/L (3.5-5.5)
[2022-05-30 15:27] LABS: Creatine Kinase MB Index 0.3 (0.0-4.0)
[2022-05-30 15:47] LABS: Source, Urine Clean Catch
[2022-05-30 15:55] LABS: Appearance, Urine Hazy (Clear); Bilirubin, Urine Neg (Neg); Blood, Urine 2+ (Neg); Color, Urine Amber (P-Yellow); Glucose Qualitative, Urine Neg (Neg); Ketones, Urine 4+ (Neg); Leukocyte Esterase, Urine 3+ (Neg); Nitrite, Urine Neg (Neg); Protein, Urine 2+ (Neg); Urobilinogen, Urine 1+ (Normal); pH, Urine 6.5 (5.0-8.0)
[2022-05-30 16:10] LABS: Bacteria Mod /hpf; Granular Casts 0-2 /lpf (0); Hyaline Casts 0-2 /lpf (0-2); Mucus Light (0-Heavy); Squamous Epithelial Cells Many /hpf (Few); White Blood Cells, Urine 25-50 /hpf (0-5)
[2022-05-30] MEDS ORDERED: NITR100CA PO (16:36)
== END 2022-05-30 16:57 | disposition home or self-care (01) ==
LOC: ER 10:32
PROVIDERS: Physician Assistant; Student in an Organized Health Care Education/Training Program
DX: M79.7 Fibromyalgia (principal); N39.0 Urinary tract infection, site not specified; J44.9 Chronic obstructive pulmonary disease, unspecified; F25.0 Schizoaffective disorder, bipolar type; F31.9 Bipolar disorder, unspecified; Z88.0 Allergy status to penicillin; Z79.899 Other long term (current) drug therapy; Z87.891 Personal history of nicotine dependence
CPT/HCPCS: 36415; 80053; 81001; 82550; 82553; 85025; 87086; 93005; 93010; A9270; J1885

== ENCOUNTER 2022-08-10 15:11 | Observation (INO) | payer MEDICARE ==
[~2022-08-10] VITALS: Ht 170.2 cm; Wt 86.2 kg
[~2022-08-10 15:11] MED LIST changes: +NITR100CA PO
[2022-08-10 15:53] LABS: BASOPHILS ABSOLUTE AUTO 0.06 K/mm3 (0.00-0.23); BASOPHILS PERCENT AUTO 1 % (0-2); EOSINOPHILS ABSOLUTE AUTO 0.07 K/mm3 (0.00-0.68); EOSINOPHILS PERCENT AUTO 1 % (0-6); Hematocrit 47.6 % (33.0-51.0); IMMATURE GRAN ABSOLUTE AUTO 0.06 K/mm3 (0.00-0.10); IMMATURE GRAN PERCENT AUTO 1 % (0-1); LYMPHOCYTES ABSOLUTE AUTO 3.74 K/mm3 (0.84-5.20); LYMPHOCYTES PERCENT AUTO 31 % (21-46); MONOCYTES ABSOLUTE AUTO 1.08 K/mm3 (0.16-1.47); MONOCYTES PERCENT AUTO 9 % (4-13); Mean Corpuscular HGB 29.3 pg (26.0-34.0); Mean Corpuscular HGB Conc 33.6 g/dL (31.5-36.5); Mean Corpuscular Volume 87 fL (80-100); Mean Platelet Volume 9.7 fL (9.1-12.4); NEUTROPHILS ABSOLUTE AUTO 7.26 K/mm3 (1.96-9.15); NEUTROPHILS PERCENT AUTO 59 % (41-73); Platelet Count 438 K/mm3 (150-400); RDW Standard Deviation 47.8 fL (35.1-46.3); Red Blood Cell Count 5.46 M/mm3 (3.80-5.20); White Blood Cell Count 12.27 K/mm3 (4.00-11.30)
[2022-08-10 16:18] LABS: Ethanol (Alcohol), Blood, Med <3 mg/dL; Salicylate 2.2 mg/dL (2.8-20.0)
[2022-08-10 16:20] LABS: Acetaminophen, Random <2.0 ug/mL (10.0-30.0); Alanine Aminotransfer (ALT/SGP 77 U/L (12-78); Albumin, Blood 4.5 g/dL (3.4-5.0); Albumin/Globulin Ratio 1.1 (0.8-1.8); Alk Phos 103 U/L (50-136); Anion Gap 9 mmol/L (6-16); Aspartate Aminotrans (AST/SGOT 23 U/L (12-37); Bilirubin, Total 0.6 mg/dL (0.1-1.0); Blood Urea Nitrogen 24 mg/dL (8-24); CO2, Blood 22 mmol/L (21-32); Calcium, Blood 9.9 mg/dL (8.5-10.1); Chloride, Blood 108 mmol/L (98-108); Creatinine, Blood 0.77 mg/dL (0.40-1.00); Globulin, Blood 4.1 g/dL (2.2-4.0); Glomerular Filtration Rate 88 (60-); Glucose, Blood 155 mg/dL (70-99); Potassium, Blood 3.7 mmol/L (3.5-5.5); Sodium, Blood 139 mmol/L (136-145); Total Protein, Blood 8.6 g/dL (6.4-8.2)
[2022-08-10 18:22] LABS: Influenza A, PCR NEGATIVE (NEGATIVE); Influenza B, PCR NEGATIVE (NEGATIVE); Resp Syncytial Virus, PCR NEGATIVE (NEGATIVE); SARS-Cov-2 (COVID-19) PCR, MMC NEGATIVE (NEGATIVE)
[2022-08-12 07:12] LABS: Source, Urine Clean Catch
[2022-08-12 07:23] LABS: Appearance, Urine Cloudy (Clear); Bilirubin, Urine Neg (Neg); Blood, Urine Neg (Neg); Color, Urine Yellow (P-Yellow); Glucose Qualitative, Urine Neg (Neg); Ketones, Urine Neg (Neg); Leukocyte Esterase, Urine 1+ (Neg); Nitrite, Urine Neg (Neg); Protein, Urine 2+ (Neg); Specific Gravity, Urine 1.025 (1.003-1.022); Urobilinogen, Urine NORM (Normal)
[2022-08-12 07:39] LABS: Amorphous Heavy (0-Heavy); Bacteria Mod /hpf; Calcium Oxalate Crystals Few /hpf; Red Blood Cells, Urine 0-2 /hpf (0-2); Squamous Epithelial Cells Few /hpf (Few)
[2022-08-12 07:40] LABS: U Amphetamine Screen Not Detected; U Barbituate Screen Not Detected; U Benzodiazapine Screen Not Detected; U Buprenorphine Screen Not Detected; U Cannabinoids Screen Not Detected; U Cocaine Screen Not Detected; U Methadone Screen Not Detected; U Methamphetamine Screen Not Detected; U Opiates Screen Not Detected; U Oxycodone Screen Not Detected; U Phencyclidine Screen Not Detected; U Propoxyphene Screen Not Detected
== END 2022-08-18 15:37 ==
LOC: ER 15:11 → EOR 15:12
PROVIDERS: Physician Assistant; ADMIT Student in an Organized Health Care Education/Training Program
DX: F31.2 Bipolar disorder, current episode manic severe with psychotic features (principal); E78.5 Hyperlipidemia, unspecified; K21.9 Gastro-esophageal reflux disease without esophagitis; G47.00 Insomnia, unspecified; Z20.822 Contact with and (suspected) exposure to COVID-19
CPT/HCPCS: 0241U; 74018; 80053; 81001; 81025; 85025; 87086; 93005; 93010; 96372; 99285-25; A9270; G0378; G0480; J1200; J1630; J2060; Q3014

== ENCOUNTER 2022-11-19 14:56 | Emergency (ER) | payer MEDICARE ==
[~2022-11-19] VITALS: Ht 170.2 cm; Wt 68.0 kg
[2022-11-19] MEDS ORDERED: QUET25 (17:26)
[2022-11-19 18:40] LABS: BASOPHILS ABSOLUTE AUTO 0.07 K/mm3 (0.00-0.23); BASOPHILS PERCENT AUTO 1 % (0-2); EOSINOPHILS ABSOLUTE AUTO 0.07 K/mm3 (0.00-0.68); EOSINOPHILS PERCENT AUTO 1 % (0-6); Hemoglobin 15.3 g/dL (11.5-16.0); IMMATURE GRAN ABSOLUTE AUTO 0.06 K/mm3 (0.00-0.10); IMMATURE GRAN PERCENT AUTO 1 % (0-1); LYMPHOCYTES ABSOLUTE AUTO 3.41 K/mm3 (0.84-5.20); LYMPHOCYTES PERCENT AUTO 29 % (21-46); MONOCYTES ABSOLUTE AUTO 1.12 K/mm3 (0.16-1.47); MONOCYTES PERCENT AUTO 9 % (4-13); Mean Corpuscular HGB 29.1 pg (26.0-34.0); Mean Corpuscular HGB Conc 33.3 g/dL (31.5-36.5); Mean Corpuscular Volume 88 fL (80-100); Mean Platelet Volume 9.7 fL (9.1-12.4); NEUTROPHILS PERCENT AUTO 60 % (41-73); Platelet Count 481 K/mm3 (150-400); RDW Coefficient Variation 13.6 % (11.7-14.2); RDW Standard Deviation 43.4 fL (35.1-46.3); Red Blood Cell Count 5.25 M/mm3 (3.80-5.20); White Blood Cell Count 11.93 K/mm3 (4.00-11.30)
[2022-11-19 18:58] LABS: Albumin, Blood 4.4 g/dL (3.4-5.0); Albumin/Globulin Ratio 0.9 (0.8-1.8); Bilirubin, Total 0.5 mg/dL (0.1-1.0); Bun/Creatinine Ratio 24.5 (12.0-20.0); Calcium, Blood 9.9 mg/dL (8.5-10.1); Creatinine, Blood 0.65 mg/dL (0.40-1.00); Globulin, Blood 4.7 g/dL (2.2-4.0); Potassium, Blood 3.3 mmol/L (3.5-5.5); Total Protein, Blood 9.1 g/dL (6.4-8.2)
[2022-11-19 19:36] LABS: Influenza A, PCR NEGATIVE (NEGATIVE); Influenza B, PCR NEGATIVE (NEGATIVE); Resp Syncytial Virus, PCR NEGATIVE (NEGATIVE); SARS-Cov-2 (COVID-19) PCR, MMC NEGATIVE (NEGATIVE)
[2022-11-19] MEDS ORDERED: QUETIAPINE FUM400 M2 PO (20:23)
[2022-11-19 20:31] VITALS: BP 152/80
== END 2022-11-19 20:46 | disposition home or self-care (01) ==
LOC: ER 14:56
PROVIDERS: Emergency Medicine
DX: R51.9 Headache, unspecified (principal); Z20.822 Contact with and (suspected) exposure to COVID-19
CPT/HCPCS: 0241U; 80053; 83690; 85025; 96361; 96374; 96375; 99284-25; A9270; J1885; J2405; J2550; J7030

== ENCOUNTER → 2022-12-27 | Outpatient (CLI) | payer MEDICARE ==
[~2022-12-27] MED LIST changes: +QUET25; +QUETIAPINE FUM400 M2 PO
[2022-12-28 10:02] LABS: Candida species (DNA Probe) Negative (NEGATIVE); G. vaginalis (DNA Probe) Negative (NEGATIVE); T. vaginalis (DNA Probe) Negative (NEGATIVE)
== END | disposition home or self-care (01) ==
LOC: LAB 13:30 → LAB SHORT 13:30
PROVIDERS: Nurse Practitioner Family
DX: Z01.419 Encounter for gynecological examination (general) (routine) without abnormal findings (principal)
CPT/HCPCS: 87480; 87510; 87660

== ENCOUNTER 2023-11-27 06:32 | Day surgery (SDC) | payer OTHER ==
[~2023-11-27] VITALS: Ht 165.1 cm; Wt 109.6 kg
[~2023-11-27 06:32] MED LIST changes: +ALBU90OI INH; +AMAN100 PO; +ATOR10 PO; +IRBE75 PO; +Lactated Ringer's 1,000 ML IV SCH; +VITAMIN B121000 MCG PO
[2023-11-27] MEDS ORDERED: Atropine Sulfate 0.1 MG/ML 10ML SYR IV PRN (06:50)
[2023-11-27] MEDS ORDERED: Lactated Ringer's 1,000 ML IV SCH (06:50)
[2023-11-27] MEDS ORDERED: Lidocaine HCl 1% 5 ML SYR INJ ONE (06:50)
[2023-11-27] MEDS ORDERED: propofoL 40 ML IV ONE (06:52)
[2023-11-27] MEDS ORDERED: Albuterol 2.5 MG/3 ML VIAL INH PRN (06:55)
[2023-11-27] MEDS ORDERED: Albuterol 2.5 MG/3 ML VIAL INH ONE (06:55)
[2023-11-27] MEDS ORDERED: Ipratropium Bromide INH 0.02% 0.5 mg/2.5ML Vial INH ONE (06:55)
--- NOTE | 2023-11-27 07:04 | NUR ---
PATIENT ACCOMPANIED BY A FRIEND, SHARMILA, WHO STATES SHE HELPS TAKE CARE OF PATIENT DUE TO DEMENTIA. SHARMILA TO DRIVE HER HOME POST-PROCEDURE.
--- NOTE | 2023-11-27 07:04 | NUR ---
11/27/23 [address] ROJAS; SEE ANESTHESIA RECORDS.
[2023-11-27 07:11] VITALS: BP 119/63
[2023-11-27] MEDS ORDERED: Benzocaine Oral Spray 0.5ML UD ONE (08:00)
[2023-11-27 08:27] VITALS: BP 124/90
--- NOTE | 2023-11-27 08:46 | NUR ---
Discharge instructions reviewed with patient. Patient verbalizes understanding. Copy given to patient to take home. Discharged via wheelchair to private car for ride home W/ FRIEND. BELONGINGS RETURNED TO PT.
== END 2023-11-27 08:45 | disposition home or self-care (01) ==
LOC: ORSCMMR 06:32 → ORD 08:00 → ORSCMMR 08:45
PROVIDERS: Internal Medicine Gastroenterology
PROC: 0DJ08ZZ Inspection of Upper Intestinal Tract, Via Natural or Artificial Opening Endoscopic (ICD-10-PCS; principal; 2023-11-27 08:00)
DX: R11.2 Nausea with vomiting, unspecified (principal); K80.20 Calculus of gallbladder without cholecystitis without obstruction; F31.9 Bipolar disorder, unspecified; I48.91 Unspecified atrial fibrillation; E78.5 Hyperlipidemia, unspecified; G47.33 Obstructive sleep apnea (adult) (pediatric); Z79.899 Other long term (current) drug therapy
CPT/HCPCS: 82947; 88305; A9270; J2704; J7120

== ENCOUNTER → 2024-12-09 | Outpatient (CLI) | payer OTHER ==
[~2024-12-09] MED LIST changes: -Lactated Ringer's 1,000 ML IV SCH
[2024-12-13 14:13] LABS: Stool Occult Bld Immuno 1 Positive (NEGATIVE)
== END ==
LOC: LAB 12:53 → LAB SHORT 12:53
DX: Z12.11 Encounter for screening for malignant neoplasm of colon (principal)
CPT/HCPCS: G0328

== ENCOUNTER → 2024-12-31 | Outpatient (CLI) | payer OTHER ==
[~2024-12-31] MED LIST changes: +ANORO ELLIPTA1 EACH INH; +ARIPIPRAZOLE OD15 MG PO; +Acetaminophen650 M1 PO; +BUTALB-ACETAMI1 EAC7 PO; +DONEPEZIL HCL10 MG PO; +IBUP800 PO; +IPRAT-ALBUT 0.5-3 ML INH; +LACT10SY PO; +MELA3 PO; +MEMA10 PO; +MIRALAX17 GM PO; +NYSTRIT TOP; +ONDA4ODT MM; +PREG75 PO; +Seroquel Xr400 MG PO; +TRAZ100 PO
[2024-12-31 15:13] LABS: Bacterial Vaginosis PCR Negative (NEGATIVE); Candida Group, PCR NOT DETECTED (NOT DETECT); Candida glabrata-krusei, PCR NOT DETECTED (NOT DETECT)
== END ==
LOC: LAB 09:19 → LAB SHORT 09:19
PROVIDERS: Advanced Practice Midwife
DX: N76.0 Acute vaginitis (principal); R30.0 Dysuria
CPT/HCPCS: 81515; 87077; 87086; 87186

== ENCOUNTER 2025-01-13 15:54 | Inpatient (IN) | payer OTHER ==
[~2025-01-13] VITALS: Ht 170.2 cm; Wt 111.9 kg
[~2025-01-13 15:54] MED LIST changes: -ANORO ELLIPTA1 EACH INH; -ARIPIPRAZOLE OD15 MG PO; -Acetaminophen650 M1 PO; -BUTALB-ACETAMI1 EAC7 PO; -DONEPEZIL HCL10 MG PO; -IBUP800 PO; -IPRAT-ALBUT 0.5-3 ML INH; -LACT10SY PO; -MELA3 PO; -MEMA10 PO; -MIRALAX17 GM PO; -NYSTRIT TOP; -ONDA4ODT MM; -PREG75 PO; -Seroquel Xr400 MG PO; -TRAZ100 PO
[2025-01-13 16:23] LABS: BASOPHILS ABSOLUTE AUTO 0.07 K/mm3 (0.00-0.23); BASOPHILS PERCENT AUTO 1 % (0-2); EOSINOPHILS ABSOLUTE AUTO 0.48 K/mm3 (0.00-0.68); EOSINOPHILS PERCENT AUTO 5 % (0-6); Hematocrit 38.8 % (33.0-51.0); Hemoglobin 12.8 g/dL (11.5-16.0); IMMATURE GRAN ABSOLUTE AUTO 0.06 K/mm3 (0.00-0.10); IMMATURE GRAN PERCENT AUTO 1 % (0-1); LYMPHOCYTES ABSOLUTE AUTO 2.93 K/mm3 (0.84-5.20); LYMPHOCYTES PERCENT AUTO 28 % (21-46); MONOCYTES ABSOLUTE AUTO 0.80 K/mm3 (0.16-1.47); MONOCYTES PERCENT AUTO 8 % (4-13); Mean Corpuscular HGB Conc 33.0 g/dL (31.5-36.5); Mean Corpuscular Volume 87 fL (80-100); NEUTROPHILS ABSOLUTE AUTO 6.25 K/mm3 (1.96-9.15); NEUTROPHILS PERCENT AUTO 59 % (41-73); NRBC ABSOLUTE 0.00 K/mm3 (0.00-0.02); NRBC Auto 0.0 /100 WBC (0.0-0.2); Platelet Count 297 K/mm3 (150-400); RDW Coefficient Variation 15.7 % (11.7-14.2); RDW Standard Deviation 49.1 fL (35.1-46.3)
[2025-01-13 16:47] LABS: Source, Urine Clean Catch
[2025-01-13 17:05] LABS: Bilirubin, Urine Neg (Neg); Color, Urine Yellow (P-Yellow); Glucose Qualitative, Urine Neg (Neg); Ketones, Urine Neg (Neg); Leukocyte Esterase, Urine 3+ (Neg); Protein, Urine 1+ (Neg); Specific Gravity, Urine 1.005 (1.003-1.022); Urobilinogen, Urine NORM (Normal)
[2025-01-13] MEDS ORDERED: Ketorolac Tromethamine 15mg Vial IV ONE (17:05)
[2025-01-13 17:22] LABS: Alanine Aminotransfer (ALT/SGP 29.0 U/L (12-78); Albumin, Blood 4.0 g/dL (3.4-5.0); Albumin/Globulin Ratio 1.1 (0.8-1.8); Anion Gap 5.0 mmol/L (3-11); Aspartate Aminotrans (AST/SGOT 30.0 U/L (12-37); Bilirubin, Total 0.5 mg/dL (0.1-1.0); Blood Urea Nitrogen 18.0 mg/dL (8-24); CO2, Blood 31.0 mmol/L (21-32); Calcium, Blood 9.1 mg/dL (8.5-10.1); Chloride, Blood 102.0 mmol/L (98-108); Creatinine, Blood 1.01 mg/dL (0.40-1.00); Globulin, Blood 3.5 g/dL (2.2-4.0); Glucose, Blood 103.0 mg/dL (70-99); Potassium, Blood 4.2 mmol/L (3.5-5.5); Sodium, Blood 134.0 mmol/L (136-145); Total Protein, Blood 7.5 g/dL (6.4-8.2)
[2025-01-13 17:26] LABS: White Blood Cells, Urine 25-50 /hpf (0-5)
[2025-01-13] MEDS ORDERED: Nitrofurantoin/Nitrofuran Mac 100 MG Cap PO ONE (17:55)
[2025-01-13] MEDS ORDERED: NS 1,000 ML IV SCH (18:35)
[2025-01-13] MEDS ORDERED: CefTRIAXone Sodium 2,000 MG in NS 100 ML IV ONE (22:05)
[2025-01-14] MEDS ORDERED: Ondansetron HCl 2 MG / ML 2ML Vial IV PRN (02:00)
[2025-01-14] MEDS ORDERED: Ketorolac Tromethamine 15mg Vial IV PRN (02:20)
[2025-01-14 04:20] VITALS: BP 131/69
[2025-01-14] MEDS ORDERED: ONDA4ODT MM (04:34)
[2025-01-14] MEDS ORDERED: ARIPIPRAZOLE OD15 MG PO (04:42)
[2025-01-14] MEDS ORDERED: HYDHCL25 PO (04:45)
[2025-01-14] MEDS ORDERED: MELA3 PO (04:46)
[2025-01-14] MEDS ORDERED: Seroquel Xr400 MG PO (04:52)
[2025-01-14] MEDS ORDERED: TRAZ100 PO (04:54)
[2025-01-14] MEDS ORDERED: MEMA10 PO (04:55)
[2025-01-14] MEDS ORDERED: NYSTRIT TOP (04:56)
[2025-01-14] MEDS ORDERED: PREG75 PO (04:57)
[2025-01-14] MEDS ORDERED: IPRAT-ALBUT 0.5-3 ML INH (04:59)
[2025-01-14] MEDS ORDERED: ANORO ELLIPTA1 EACH INH (05:05)
[2025-01-14 05:06] LABS: BASOPHILS ABSOLUTE AUTO 0.08 K/mm3 (0.00-0.23); BASOPHILS PERCENT AUTO 1 % (0-2); EOSINOPHILS ABSOLUTE AUTO 0.56 K/mm3 (0.00-0.68); EOSINOPHILS PERCENT AUTO 6 % (0-6); Hematocrit 39.8 % (33.0-51.0); Hemoglobin 12.8 g/dL (11.5-16.0); IMMATURE GRAN ABSOLUTE AUTO 0.06 K/mm3 (0.00-0.10); IMMATURE GRAN PERCENT AUTO 1 % (0-1); LYMPHOCYTES ABSOLUTE AUTO 2.53 K/mm3 (0.84-5.20); LYMPHOCYTES PERCENT AUTO 28 % (21-46); MONOCYTES ABSOLUTE AUTO 0.83 K/mm3 (0.16-1.47); MONOCYTES PERCENT AUTO 9 % (4-13); Mean Corpuscular HGB Conc 32.2 g/dL (31.5-36.5); Mean Corpuscular Volume 89 fL (80-100); NEUTROPHILS ABSOLUTE AUTO 4.88 K/mm3 (1.96-9.15); NEUTROPHILS PERCENT AUTO 55 % (41-73); NRBC ABSOLUTE 0.00 K/mm3 (0.00-0.02); NRBC Auto 0.0 /100 WBC (0.0-0.2); Platelet Count 262 K/mm3 (150-400); RDW Coefficient Variation 15.6 % (11.7-14.2); RDW Standard Deviation 50.3 fL (35.1-46.3)
[2025-01-14] MEDS ORDERED: IBUP800 PO (05:07)
[2025-01-14] MEDS ORDERED: LIDO700A20 TOP (05:08)
[2025-01-14] MEDS ORDERED: MIRALAX17 GM PO (05:09)
[2025-01-14] MEDS ORDERED: DONEPEZIL HCL10 MG PO (05:10)
[2025-01-14] MEDS ORDERED: Acetaminophen650 M1 PO (05:12)
[2025-01-14] MEDS ORDERED: BUTALB-ACETAMI1 EAC7 PO (05:14)
[2025-01-14 05:43] LABS: Alanine Aminotransfer (ALT/SGP 27.0 U/L (12-78); Albumin, Blood 3.6 g/dL (3.4-5.0); Albumin/Globulin Ratio 1.0 (0.8-1.8); Anion Gap 7.0 mmol/L (3-11); Aspartate Aminotrans (AST/SGOT 22.0 U/L (12-37); Bilirubin, Total 0.4 mg/dL (0.1-1.0); Blood Urea Nitrogen 15.0 mg/dL (8-24); CO2, Blood 27.0 mmol/L (21-32); Calcium, Blood 8.4 mg/dL (8.5-10.1); Chloride, Blood 109.0 mmol/L (98-108); Creatinine, Blood 0.96 mg/dL (0.40-1.00); Globulin, Blood 3.6 g/dL (2.2-4.0); Glucose, Blood 104.0 mg/dL (70-99); Magnesium, Blood 2.3 mg/dL (1.6-2.4); Potassium, Blood 4.0 mmol/L (3.5-5.5); Sodium, Blood 139.0 mmol/L (136-145); Total Protein, Blood 7.2 g/dL (6.4-8.2)
--- NOTE | 2025-01-14 06:05 | NUR ---
ADMIT NOTE FOR 01/14/25 0410/SHIFT SUMMARY REPORT WAS RECEIVED FROM THE ER AND PT WAS BROUGHT DOWN ON A GURNEY TO THE ROOM AND SHE WAS ABLE TO ROLL ONTO THE OTHER BED. PT ALERT ORIENTED X 4 BUT VERY FORGETFUL. BED ALARM IS ON. REQUIRES 1 PERSON ASSIST WITH WALKER. SHES NPO AT THIS TIME PENDING IR CONSULT FOR POSSIBLE NEPHROSTOMY TUBE. FS DONE Q6HR. REMAINS ON LR AT 100. SHE WAS ORIENTED TO ROOM AND STAFF. SHE HAS A RASH UNDER HER BREASTS AND ABD FOLDS THAT I CLEANED AND APPLIED POWDER. REMAINS ON ROCEPHIN QDAY. SHE HAS A 8MM OBSTRUCTING STONE. RESTING IN BED WITH CALL LIGHT IN REACH
[2025-01-14] MEDS ORDERED: Ipratropium/Albuterol SulF 2.5-0.5MG/3 ML Amp INH SCH ×2 (06:20→09:00)
[2025-01-14 07:41] VITALS: BP 161/96
--- NOTE | 2025-01-14 07:47 | NUR ---
0745- THIS RN ASKED MD FREEMAN IF SHE WANTED AN IR CONSULT PLACED SINCE UROLOGY RECOMMENDED ONE, SAID, "NO LET ME REVIEW FIRST."
[2025-01-14] MEDS ORDERED: Polyethylene Glycol 3350 17 gm PO SCH (09:00)
[2025-01-14] MEDS ORDERED: Nystatin/Triamcinolone Ointment 15 GM TOP SCH (09:00)
[2025-01-14] MEDS ORDERED: Miconazole Nitrate 2% 85 GM PWD TOP SCH (09:00)
[2025-01-14] MEDS ORDERED: Lactobacil 2-S.Thermo-Bifido 1 1 Cap PO SCH (09:00)
[2025-01-14] MEDS ORDERED: Lidocaine 4% 1 Patch TOP SCH (09:00)
[2025-01-14] MEDS ORDERED: LACT10SY PO (15:49)
[2025-01-14 16:27] VITALS: BP 137/71
--- NOTE | 2025-01-14 18:11 | NUR ---
SUMMARY- PT AAOX3. DISORIENTED TO SITUATION. PT HAS MADE MULTIPLE COMMENTS THIS SHIFT THAT WERE COMPLETELY OFF BASED REGARDING THE TOPIC THAT WAS AT HAND WHEN CONVERSING. PT EASILY REDIRECTABLE. SBA. ON RA. COMPLAINS OF MILD FLANK PAIN; REFUSED PAIN MEDS. GOOD APPETITE. NO COMPLAINTS OF PAIN WHEN URINATING. COOPERATIVE.
[2025-01-14 19:53] VITALS: BP 155/79
[2025-01-14] MEDS ORDERED: NS 250 ML IV PRN (20:55)
[2025-01-14] MEDS ORDERED: CefTRIAXone Sodium 1,000 MG in NS 100 ML IV SCH (21:00)
[2025-01-15 04:02] VITALS: BP 140/68
--- NOTE | 2025-01-15 05:05 | NUR ---
SHIFT SUMMARY PT ALERT ORIENTED WITH DELUSIONS AND PSYCHOTIC FEATURES. SHE TALKS TO THINGS IN HER ROOM THAT ARENT THERE AND SHE STATED THAT NEIL WAS HER . SHE WAS TALKING TO HER PHONE AND NOBODY WAS THERE. SHE HAS A HX OF BIPOLAR AND SCHIZOAFFECTIVE. SHE C/O HEADACHE MEDICATED WITH TYLENOL WITH GOOD RELIEF. ALSO C/O ANXIETY MEDICATED WITH HYDROXYZINE WITH MILD RELIEF. REMAINS ON THE LAST BAG OF LR AT 100. REMAINS ON ROCEPHIN QDAY FOR A UTI. SHE AMBULATES TO THE BATHROOM WITH 1 PERSON SBA. RESTING IN BED AT THIS TIME WITH CALL LIGHT IN REACH AND BED ALARM ON
[2025-01-15 05:44] LABS: Albumin, Blood 3.3 g/dL (3.4-5.0); Anion Gap 7 mmol/L (3-11); Blood Urea Nitrogen 13 mg/dL (8-24); CO2, Blood 28 mmol/L (21-32); Calcium, Blood 8.6 mg/dL (8.5-10.1); Chloride, Blood 108 mmol/L (98-108); Creatinine, Blood 0.88 mg/dL (0.40-1.00); Glucose, Blood 159 mg/dL (70-99); Phosphorus, Blood 4.0 mg/dL (2.5-4.9); Potassium, Blood 3.6 mmol/L (3.5-5.5); Sodium, Blood 139 mmol/L (136-145)
[2025-01-15 07:42] VITALS: BP 132/77
[2025-01-15 14:59] VITALS: BP 148/98
--- NOTE | 2025-01-15 18:36 | NUR ---
SUMMARY- THIS RN CALLED [facility] (COMMUNITY PSYCH TEAM) THIS MORNING AT 0716 AND ASKED A KILN SETTER TO PLEASE COME VISIT PT. ED APRIL AND OBI CAME THIS SHIFT AND VISITED PT. PT AAOX2-3 THIS SHIFT. PT HAS BEEN DELUSIONAL THIS SHIFT AND EXHIBITING BIZARRE AND OUTLANDISH BIPOLAR BEHAVIOR. [facility] TEAM BELIEVES SHE IS HAVING AN "EPISODE." [facility] TEAM WOULD LIKE TO BE CALLED PRIOR TO PT'S DC, PT SEES THEM EVERYDAY. [facility] INFO GIVEN TO ALVIN SANFORDGT RN. PT REPORTS MILD EDEN AND R FLANK PAIN THIS SHIFT; RELEIVED BY TYLENOL. ON RA. THIS RN TOOK PT FOR A WALK AROUND THE [facility] ONCE THIS SHIFT. SBA.
[2025-01-15 20:27] VITALS: BP 156/86
--- NOTE | 2025-01-16 04:16 | NUR ---
SHIFT SUMMARY PT ALERT ORIENTED BUT WAS VERY MANIC TONITE AND WAS UP AND DOWN ALL NIGHT STATING THAT SHE WAS SLEEPING WITH HER AND THAT SHE WAS WITH HIS TWO CHILDREN. SHE ATTEMPTED TO PACK UP HER STUFF AND LEAVE ON TWO DIFFERENT OCCURRENCES BUT WE WERE ABLE TO GET HER TO STAY. SHE WAS ALSO SEEN YELLING AT HER PHONE LIKE SHE WAS TALKING TO THINGS THAT WERENT THERE. SHE WAS AWAKE ALL NIGHT EVEN AFTER GETTING ALL HER NIGHT MEDS AND MELATONIN AND HYDROXYZINE WITH NO RELIEF. VSS ON RA SATTING AT 94%. C/O HEADACHE MEDICATED WITH TYLENOL WITH GOOD RELIEF. REMAINS ON ROCEPHIN ORDERED FOR UTI. NO C/O ABD PAIN. SHES IN BED AT THIS TIME WITH CALL LIGHT IN REACH
[2025-01-16 04:55] LABS: Hematocrit 39.2 % (33.0-51.0); Hemoglobin 12.4 g/dL (11.5-16.0); Mean Corpuscular HGB Conc 31.6 g/dL (31.5-36.5); Mean Corpuscular Volume 89 fL (80-100); NRBC ABSOLUTE 0.00 K/mm3 (0.00-0.02); NRBC Auto 0.0 /100 WBC (0.0-0.2); Platelet Count 285 K/mm3 (150-400); RDW Coefficient Variation 15.8 % (11.7-14.2); RDW Standard Deviation 50.8 fL (35.1-46.3)
[2025-01-16 05:12] LABS: Albumin, Blood 3.5 g/dL (3.4-5.0); Anion Gap 7 mmol/L (3-11); Blood Urea Nitrogen 14 mg/dL (8-24); CO2, Blood 28 mmol/L (21-32); Calcium, Blood 8.6 mg/dL (8.5-10.1); Chloride, Blood 108 mmol/L (98-108); Creatinine, Blood 0.89 mg/dL (0.40-1.00); Glucose, Blood 149 mg/dL (70-99); Magnesium, Blood 2.1 mg/dL (1.6-2.4); Phosphorus, Blood 4.3 mg/dL (2.5-4.9); Potassium, Blood 3.7 mmol/L (3.5-5.5); Sodium, Blood 139 mmol/L (136-145)
[2025-01-16 06:14] VITALS: BP 136/73
[2025-01-16 07:20] VITALS: BP 140/82
--- NOTE | 2025-01-16 10:29 | NUR ---
SPOKE WITH PATIENT'S SISTER CHERELLE NOTIFIED OF PATIENT BEING DISCHARGE. CHERELLE EXPRESSES CONCERNS WITH THE PATIENT BEING DISCHARGED DUE TO HER MENTAL STATE. STATING THAT IT IS WORSE AND SHE HASN'T BEEN MANIC LIKE THIS IN A VERY LONG TIME. NOTIFIED CHERELLE THAT THE PATIENT IS CLEARED MEDICALLY AND THOUGH HER MENTAL HEALTH IS A CONCERN SHE IS BEING FOLLOWED UP [facility] AND THAT THEY SAW HER WHILE SHE WAS HERE. SHE IS AWARE AND STATES THAT SHE HAS A MEETING WITH THEM TODAY. PT STATES THAT SHE WILL BE COMING BY WITH A LETTER WITH ALL OF HER CONCERNS. THIS RN VOICED UNDERSTANDING. CALLED AND NOTIFIED DR. GRAFF OF THIS WELL. HE ADVISES THE SAME AND TO HAVE THE SISTER SPEAK WITH CASE MANAGEMENT WITH DISCHARGE CONCERNS.
[2025-01-16] MEDS ORDERED: CEPH500 PO (10:55)
[2025-01-16] MEDS ORDERED: SENNA PLUS PO (10:59)
[2025-01-16 16:01] VITALS: BP 144/83
--- NOTE | 2025-01-16 16:36 | NUR ---
SHIFT SUMMARY: PATIENT IS ALERT AND ORIENTED TO SELF, SOMEWHAT SITUATION THIS VARIES, PERSON (SISTER CHERELLE), SOMEWHAT OF STAFF, CALLS STAFF OTHER NAMES AND BELIEVES THEY ARE OTHER PEOPLE THAT SHE KNOWS. PATIENT IS OVERALL PLEASANT AND COOPERATIVE. HASN'T SLEPT IN 24 HOURS OR SO, EVALUATED BY DR. WATKINS PSYCHIATRY AND DISCHARGE WAS STOPPED FOR TODAY BASED ON CURRENT STATE. PATIENT IS INDEPENDENT, MAKES NEEDS KNOWN, USES CALL LIGHT OR WALKS OUT OF ROOM. SHE IS IN BED, ALERT, NO SIGNS OR SYMPTOMS OF DISTRESS, CALL LIGHT WITHIN REACH, PLAN OF CARE ONGOING.
[2025-01-16 20:29] VITALS: BP 155/78
[2025-01-16] MEDS ORDERED: Docusate Sodium/Senna 1 Tab PO SCH (21:00)
[2025-01-17 02:55] VITALS: BP 137/73
--- NOTE | 2025-01-17 04:52 | NUR ---
SHIFT SUMMARY PATIENT VITAL SIGNS STABLE THROUGHOUT SHIFT. PT A/O X2, COOPERATIVE AND REDIRECTABLE BUT FORGETS LIMITATIONS. PATIENT COMPLIANT WITH ALL MEDICAIONS AND WAS STARTED ON KEFLEX TONIGHT. PATIENT DID NOT SLEEP MUCH AGAIN TONIGHT AND CONTIUNES TO HAVE DELUSIONS. SHE STATES THAT "SHE IS WITH HER SHIV'S CHILDREN." PATIENT HAS GOOD APPETITE AND ADEQUATE HYDRATION. VOIDING AND PASSING FLATUS. BOWEL TONES ACTIVE X4. INDEPENDENT IN THE ROOM AND ABLE TO MAKE NEEDS KNOW. USING CALL LIGHT APPROPRIATELY. CALL LIGHT IN REACH WITH BED IN LOWEST POSITION. NO ACUTE CHANGES.
[2025-01-17 07:38] VITALS: BP 95/77
[2025-01-17 07:54] VITALS: BP 159/95
[2025-01-17 07:56] VITALS: BP 130/104
--- NOTE | 2025-01-17 12:57 | NUR ---
SPOKE WITH DR. WATKINS REGUARDING PATIENT AND HIS NOTE ABOUT CONSIDERING INCREANING HER TRAZADONE AND SEROQUEL, BUT NOT ORDERING. PATIENT ONLY SLEPT 2 HOURS LAST NIGHT. PER DR. WATKINS " I CONSULTED THE PATIENT, IF THE DOCTOR WANTS TO ORDER THAT HE CAN." DISCUSSED WITH DR. WATKINS THAT CONSULTING DOCTORS TYPICALLY ORDER THERE OWN MEDS IN RELATION TO THE CONSULTATION. PER DR. WATKINS OKAY FOR THIS RN TO ORDER UNDER HIM AND TO NOTIFY TO DR. GRAFF. DR. GRAFF NOTIFIED. ORDER WAS TO INCREASE TRAZODONE TO 300 MG AND SEROQUEL TO 600 MG.
[2025-01-17] MEDS ORDERED: Dextran/Hypromellose/Glycerin 15 DROP/ML BTL BOTHEYES PRN (14:00)
[2025-01-17 15:42] VITALS: BP 152/88
--- NOTE | 2025-01-17 16:41 | NUR ---
SHIFT SUMMARY: PATIENT CONTINUES TO BE MANIC AND HAVE DELUSIONS; SOMEWHAT IMPROVED TODAY BEHAVIORALLY. SHE DID POKE HER EYES WITH HER FINGERS MULTIPLE TIMES TODAY AFTER LICKING THEM AND HER EYES ARE RED; STATING SHE WAS PLACING HER CONTACTS; EYE DROPS ORDERED. SEE NURSE NOTE ABOUT INCREASED MEDICATIONS DOSES. PATIENT'S SISTER CAROLYN (BECKIE) NOTIFIED AND IS CURRENTLY HERE WITH THE PATIENT; ATTEMPTING TO CONFISCATE THE PATIENT'S PHONE. CAROLYN CONTINUES TO EXPRESS CONCERNS WITH THE PATIENT AND BRIEFLY SPOKE WITH THE [facility] ABOUT RESOURCES. CAROLYN WISHES FOR THE PATIENT TO GO TO THE [facility]. PATIENT IS IN HER ROOM; HAS REMAINED IN HER ROOM THUS FAR, PLEASANT AND COOPERATIVE, NO SIGNS OR SYMPTOMS OF DISTRESS, PLAN OF CARE ONGOING.
--- NOTE | 2025-01-17 16:48 | NUR ---
PATIENT'S SISTER CAROLYN TOOK PATIENT'S PHONE AND LEFT;NOTIFIED STAFF.
[2025-01-17 20:00] VITALS: BP 151/84
[2025-01-18 03:59] VITALS: BP 112/90
--- NOTE | 2025-01-18 05:50 | NUR ---
RESIDENTIAL YOUTH COUNSELOR SUMMARY NO ACUTE CHANGES. INCREASED DOSE OF TRAZADONE AND SEROQUEL GIVEN TO PT WITH 2100 BEDTIME MEDS PER NEW ORDER/SEP. PT WAS WAKEFUL UNTIL APROX 0430 WITH ONLY BRIEF PERIODIC EPISODES OF SLEEP. PT CONTINUALLY CALLING STAFF TO BEDSIDE. PT PERSEVERATING OVER ITEMS IN THE ROOM AND IN HER BACK PACK. PT FOUND ATTEMPTING TO PULL THINGS OFF THE WAY AND HER BED. PT PULLED BEDDING OFF HER BED AND FOUND THROWING AWAY ITEMS NOT MEANT TO BE THROWN AWAY. PT SEVERAL TIMES SPOKE OF LEAVING. PT REMAINS PLEASANT AND REDIRECTABLE EVEN WITH DELUSIONS/DELIRIUM. AT APROX 0430 PT FELL ASLEEP AND REMAINS SLEEPING TILL THIS TIME WHICH IS APROX 0555. PT TV IS ON, LIGHTS ON, AND DOOR OPEN. CARE WILL CONTINUE UNTIL REPORT GIVEN TO ONCOMING NURSE.
[2025-01-18 07:44] VITALS: BP 128/66
--- NOTE | 2025-01-18 14:52 | NUR ---
SPOKE WITH CC, DR. FREEMAN, DR. WATKINS, AND PATIENT'S SISTER CAROLYN. THE PLAN IS FOR THE PATIENT TO DISCHARGE TOMORROW HOME AND TO FOLLOW UP WITH OUTPATIENT PSYCHIATRY AND [facility]. PT'S SISTER CAROLYN IS GOING TO BE CALLING APS FOR MORE RESOURCES FOR THE PATIENT.
[2025-01-18 15:43] VITALS: BP 147/74
--- NOTE | 2025-01-18 16:51 | NUR ---
SHIFT SUMMARY: PATIENT HAS REMAINED IN HER ROOM THIS SHIFT; HAS BEEN MOR RESTFULL, TAKING MORE NAPS THROUGOUT THE DAY. STILL APPEARING MANIC,DELUSIONAL, MAKING STRANGE REQUEST AND MAKING STRANGE REMARKS AND STATEMENTS. PATIENT OVERALL PLEASANT AND COOPERATIVE. SHE SHOWERED, CONTINUES TO THROW THINGS AWAY OR HIDE THEM IN HER ROOM/BELONGINGS. KEEPING MEDICATIONS IN PATIENT'S LOCK DRAWER AND BP CUFF OUTSIDE ROOM. SHE IS IN BED, RESTING, CALL LIGHT WITHIN REACH,NO SIGNS OR SYMPTOMS OF DISTRESS, PLAN OF CARE ONGOING. SEE NURSE NOTE OF D/C PLAN FOR 01/19/25.
[2025-01-18 19:44] VITALS: BP 126/64
--- NOTE | 2025-01-19 02:45 | NUR ---
ZOFRAN PRN IV 4MG WAS CHANGED TO PRN 4MG PO D/T PT DOES NOT HAVE AN IV ACCESS. T-ORDER WAS RECEIVED FROM THE ON-CALL HOSPITALIST DR. CHAVES. ENTERED TO [employer], SEE EMAR.
--- NOTE | 2025-01-19 03:00 | NUR ---
SHIFT SUMMARY NO ACUTE EVENTS DURING THIS SHIFT. PT IS LABILE, CONFUSED INTERMITTENTLY, REDIRECTABLE. WAS ASKING THIS CREDIT ANALYST WHERE THE "PORN CHANNEL IS" ON PT'S HOSPITAL ROOM TV. FEW EVENTS OF SLAMMING DOORS, THROWING CUPS ON THE GROUND AND SHUFFLED IN THE HOSPTIAL ROOM. MEDICATED WITH PRN ATARAX X1. MEDICATED FOR NAUSEA WITH PRN ZOFRAN. MEDICATED FOR BACK PAIN WITH PRN TYLENOL AT HS. PT'S SISTER CHERELLE CALLED AT HS, AND WAS EXPLAINING TO THIS CREDIT ANALYST THAT THIS BEHAVIOR ISN'T PT'S BASELINE. PLAN IS TO DISCHARGE HOME TODAY. BED AT THE LOWEST POSITION, CALL LIGHT W/I REACH. MULTIPLE TIMES USING THE CALL LIGHT. ALL NEEDS MET. A/O X2-3. ABLE TO MAKE HER NEEDS KNOWN.
[2025-01-19 03:47] VITALS: BP 125/64
[2025-01-19 07:10] VITALS: BP 112/63
--- NOTE | 2025-01-19 14:16 | NUR ---
0700 WHEN INTRODUCING MYSELF TO PT DIDIER DOING SHIFT REPORT, SHE BECAME OVERTLY ENAMORED WITH THIS RN. MAKING INNAPPROP COMMENTS. I EXPRESSED THIS WAS NOT APPROPRIATE. AND I WILL NOT BE IN ROOM WITHOUT ANOTHER FEMALE IN ROOM.
--- NOTE | 2025-01-19 14:19 | NUR ---
0900 DURING AM MED PASS, HAD APPLICATION RELEASE MANAGER, MARY, GIVE NYSTATIN FOR GRION, AND UNDER BREAST AND FOLDS. PT CONTINUES TO BE INNAPPROPRIATE, PRESENTS MANIC. WILL SPEAK TO DR. CONTINUE TO HAVE FEMALE IN ROOM ANYTIIME I AM IN ROOM.
[2025-01-19 15:25] VITALS: BP 132/70
--- NOTE | 2025-01-19 15:26 | NUR ---
1320. PT HAS 2MD HOLD PLACED THIS AM. HAS HAD SITTER SINCE. MOVING TO BACK WHITTEN REPORT TO CHRISTA AT 1320. PT AMBULATED SELF TO NEW ROOM.
[2025-01-19] MEDS ORDERED: LORazepam 2 MG/ML 1ML Injection IM PRN (16:15)
[2025-01-19] MEDS ORDERED: Haloperidol Lactate Inj. 5 MG/ML Injection IM PRN (16:15)
[2025-01-19] MEDS ORDERED: DiphenhydrAMINE HCl 50 MG/ML 1ML Vial IM PRN (16:20)
--- NOTE | 2025-01-19 16:41 | NUR ---
PT BECOMING EXTREMELY AGITATED, PULLING CODE BLUE DEVICE FROM WALL, ATTEMPTING TO "JUMP" OUT THE WINDOW, PT NOT REDIRECTABLE. DR. WATKINS NOTIFIED. PLS SEE EMAR FOR MD ORDERS.
--- NOTE | 2025-01-19 18:02 | NUR ---
SUMMARY PT IN A MANIC EPISODE, DESTROYING PROPERTY AND HORDING ITEMS. PHSYC HOLD IN PLACE. PT IS OVERALL POLITE, MEDS ADMINISTERED PRESCRIBED. SITTER IN PLACE. DOES NOT CALL APPROPRIATLEY, NOT DIRECTABLE. DELUSIONAL
[2025-01-19 19:17] VITALS: BP 126/65
[2025-01-19] MEDS ORDERED: Ipratropium/Albuterol SulF 2.5-0.5MG/3 ML Amp INH PRN (22:45)
[2025-01-20 03:58] VITALS: BP 127/53
--- NOTE | 2025-01-20 05:27 | NUR ---
SUMMERY NOC SHIFT PT ADMITTED FOR UTI . PT DOES NOT REQUIRE SUPPLEMENTAL OXYGEN OR TELE. PT HAS DIAGNOSIS OF SCHIZOPHRENIA AND OPIOID ABUSE. PT IS ALERT AND ORIENTED TIMES 3. PT HAD SOME EPISODES OF AUDITORY HALUCINATIONS BUT WAS REDIRECTABLE FROM STAFF. PT QUIET MOST OF SHIFT, WATCHING TV. BED IS IN LOW POSITION, RAILS TIMES TWO, AND CALL LIGHT IS WITHIN REACH.
[2025-01-20 07:25] VITALS: BP 119/66
[2025-01-20 09:20] LABS: BASOPHILS ABSOLUTE AUTO 0.03 K/mm3 (0.00-0.23); BASOPHILS PERCENT AUTO 1 % (0-2); EOSINOPHILS ABSOLUTE AUTO 0.42 K/mm3 (0.00-0.68); EOSINOPHILS PERCENT AUTO 8 % (0-6); Hematocrit 41.7 % (33.0-51.0); Hemoglobin 13.1 g/dL (11.5-16.0); IMMATURE GRAN ABSOLUTE AUTO 0.01 K/mm3 (0.00-0.10); IMMATURE GRAN PERCENT AUTO 0 % (0-1); LYMPHOCYTES ABSOLUTE AUTO 1.97 K/mm3 (0.84-5.20); LYMPHOCYTES PERCENT AUTO 37 % (21-46); MONOCYTES ABSOLUTE AUTO 0.54 K/mm3 (0.16-1.47); MONOCYTES PERCENT AUTO 10 % (4-13); Mean Corpuscular HGB Conc 31.4 g/dL (31.5-36.5); Mean Corpuscular Volume 90 fL (80-100); NEUTROPHILS ABSOLUTE AUTO 2.39 K/mm3 (1.96-9.15); NEUTROPHILS PERCENT AUTO 45 % (41-73); NRBC ABSOLUTE 0.00 K/mm3 (0.00-0.02); NRBC Auto 0.0 /100 WBC (0.0-0.2); Platelet Count 291 K/mm3 (150-400); RDW Coefficient Variation 15.8 % (11.7-14.2); RDW Standard Deviation 52.1 fL (35.1-46.3)
[2025-01-20 09:38] LABS: Anion Gap 6.0 mmol/L (3-11); Blood Urea Nitrogen 24.0 mg/dL (8-24); CO2, Blood 30.0 mmol/L (21-32); Calcium, Blood 9.2 mg/dL (8.5-10.1); Chloride, Blood 103.0 mmol/L (98-108); Creatinine, Blood 1.1 mg/dL (0.40-1.00); Glucose, Blood 143.0 mg/dL (70-99); Potassium, Blood 4.1 mmol/L (3.5-5.5); Sodium, Blood 135.0 mmol/L (136-145)
[2025-01-20 13:42] LABS: Source, Urine Clean Catch
[2025-01-20 13:46] LABS: Bilirubin, Urine Neg (Neg); Color, Urine Yellow (P-Yellow); Glucose Qualitative, Urine Neg (Neg); Ketones, Urine Neg (Neg); Leukocyte Esterase, Urine 1+ (Neg); Protein, Urine Neg (Neg); Specific Gravity, Urine 1.020 (1.003-1.022); Urobilinogen, Urine NORM (Normal)
[2025-01-20 14:08] LABS: Red Blood Cells, Urine 0-2 /hpf (0-2)
[2025-01-20 16:00] VITALS: BP 150/80
[2025-01-20] MEDS ORDERED: Miconazole Nitrate 2% 85 GM PWD TOP SCH (17:05)
[2025-01-20 19:12] VITALS: BP 154/70
--- NOTE | 2025-01-20 19:32 | NUR ---
SHIFT SUMMARY PT IS A/O TO SELF AND FAMILY. FLIGHT OF IDEAS. UP INDEPENDENT IN THE ROOM WITH 1:[address]. NO ACUTE CHANGES THROUGHOUT THIS SHIFT. SISTER AT BEDISDE THIS AFTERNOON. PT IS COOPERATIVE WITH CARE.
--- NOTE | 2025-01-21 01:05 | NUR ---
PT SISTER CHERELLE CALL ASKING FOR UPDATE ON PT STATUS MEDICATIONS AND TREATEMENTS. PT SISTER STATES SHE HAS TRIED TO CONTACT PROVIDER SEVERAL TIMES DURING VISITS AND WANTS TO BE CONTACTED DIRECTLY CONCERNING MEDICATIONS ORDERED BY HOSPITAL VERSUS THOSE PRESCRIBED BY OUTPATIENT THERAPIST [phone]
[2025-01-21 02:08] VITALS: BP 113/63
--- NOTE | 2025-01-21 06:12 | NUR ---
COST ACCOUNTING ANALYST SUMMARY: PT A&OX4 AT START OF SHIFT. FLUCTUATES WITH ORIENTATION BETWEEN 2-4. PT REPORTS HAVING THE "DEVIL'S IN MY BODY AND I NEED TO GET HER OUT." PT OBSERVED BY STAFF PULLING OUT HAIR, PUTTING PILLOW ON HER FACE, PACING, WRETCHING AND ATTEMPTING TO FORCE HERSELF TO VOMIT, AND POURING MILK IN GENITALS TO "FORCE THE DEMON'S OUT." CHARGE NURSE NOTIFIED. PT MEDICATED WITH PRN VISTARIL, ZOFRAN, HALDOL AND ATIVAN T/O SHIFT. MEDS MILDLY EFFECTIVE. PT DID SLEEP APPROX 3 HRS, BUT HAS HAD INCREASED CONFUSION UPON WAKING. PT IS RE-DIRECTABLE. 1:[address] PT INDEPENTEND WITH BED MOBILTY AND AMBULATING TO BATHROOM. BED IN LOWEST POSITION. CARES ONGOING ORDERED.
[2025-01-21 07:29] VITALS: BP 133/74
[2025-01-21 09:00] LABS: Anion Gap 5.0 mmol/L (3-11); Blood Urea Nitrogen 23.0 mg/dL (8-24); CO2, Blood 32.0 mmol/L (21-32); Calcium, Blood 9.1 mg/dL (8.5-10.1); Chloride, Blood 102.0 mmol/L (98-108); Creatinine, Blood 0.86 mg/dL (0.40-1.00); Glucose, Blood 106.0 mg/dL (70-99); Potassium, Blood 4.2 mmol/L (3.5-5.5); Sodium, Blood 135.0 mmol/L (136-145)
[2025-01-21 16:43] VITALS: BP 131/74
--- NOTE | 2025-01-21 17:20 | NUR ---
SHIFT SUMMARY PT IS A/O TO SELF, CURRENT SITUATION, AND FAMILY. FLIGHT OF IDEAS. NO ACUTE CHANGES THROUGHOUT THIS SHIFT. PT IS COOPERATIVE WITH CARE AND EASILY REDIRECTABLE. 1:1 SITTER. PT ABLE TO SLEEP THIS AFTERNOON FOR ABOUT 2-2.5 HOURS. VISITED BY FAMILY THIS EVENING.
[2025-01-21 19:10] VITALS: BP 153/76
[2025-01-22 01:56] VITALS: BP 127/68
--- NOTE | 2025-01-22 06:32 | NUR ---
ELECTRICIAN LOCOMOTIVE SUMMARY: PT A&O X4, DOES INTERMITTENTLY REPORT THAT SHE IS AT THE HOSPITAL TO DELIVER TRIPPLETS. NO ACUTE EVENTS T/O SHIFT. MEDICATED WITH HALDOL FOR AGITATION PER EMAR ORDER; EFFECTIVE. PT RESTING IN BED MOST OF THE SHIFT. INDEPENDENT IN ROOM WITH CARES. PT PENDING D/C TO PSYCH. BED IN LOWEST POSITION. 1:1 SITTER. CARES ONGOING ORDERED.
[2025-01-22 07:27] VITALS: BP 136/70
[2025-01-22 15:03] VITALS: BP 140/77
--- NOTE | 2025-01-22 17:32 | NUR ---
"Spiritual Care | Staff request Pt. is awake and immediately displays evidence of confusion. Listen with empathy and a calming presence. Pt. continues to display confused thoughts, though welcomes this goodwill representative's presence. Took pts. hand and prayed for the Pt. Pt. verbalized gratitude for the spiritual care visit and requested this goodwill representative to return."
--- NOTE | 2025-01-22 18:25 | NUR ---
SUMMARY PT CONTINUES TO HAVE DELUSIONS WHILE BEING ORIENTED TO THE QUESTIONS YOU ASK. PENDING INPATIENT PSYCHE PER DR. KNIGHT. SISTER UPDATED ON PLAN OF CARE TODAY. NO IV ACCESS NEEDED ORDERED. PRN VISTARIL GIVEN FOR ANXIETY AND TYLENOL GIVEN FOR GENERALIZED ABD DISCOMFORT. PT REPORTS RELIEF AFTER PRN'S. PT WAS ABLE TO TAKE A NAP TODAY. NO ACUTE EVENTS NOTED.
[2025-01-22 19:17] VITALS: BP 157/84
[2025-01-23 04:26] VITALS: BP 160/73
--- NOTE | 2025-01-23 05:58 | NUR ---
SHIFT SUMMARY: Pt is admitted for UTI and is a full code. Is alert and able to make needs known. Alert to self. Had hallucinations through the night. ADLs have been IND. denies pain or discomfort when asked. Was noted to be aroused. This was seen by PT attempting to self please. Requesting the porn channel and attempting to place naked self against the window and stating the world can watch. Also made several advances towards staff. All were able to be redirected without much issue.
[2025-01-23 07:28] VITALS: BP 119/61
[2025-01-23 16:22] VITALS: BP 148/79
--- NOTE | 2025-01-23 16:42 | NUR ---
SHIFT SUMMARY: PATIENT IS ALERT AND ORIENTED TO PLACE,SELF,PERSON, AND DATE; AT TIMES. HER ORIENTATION WAX AND WANES. SHE IS OVERALL PLEASANT AND REDIRECTABLE, COOPERATIVE WITH CARE. SHE WILL DO AND SAY OBSCURE THINGS; STATES SHE IS , WILL AND CAN BE SEXUAL, AND SEEN TODAY PUTTING THINGS IN HER MOUTH. SHE IS IN BED, ALERT, FIGETTING IN ROOM WITH BELONGINGS, CALL LIGHT WITHIN REACH, 1:1 SITTER, NO SIGNS OR SYMPTOMS OF DISTRESS, PLAN OF CARE ONGOING. AWAITING PSYCH PLACEMENT.
[2025-01-23 20:09] VITALS: BP 139/79
[2025-01-24 04:47] VITALS: BP 145/75
--- NOTE | 2025-01-24 06:27 | NUR ---
SHIFT SUMMARY: Pt is admitted for UTI and is a full code. Is alert and able to make needs known. Alert to self. Had hallucinations through the night. ADLs have been IND. denies pain or discomfort when asked. Was noted by 1:1 pulling hair to left side of head just forward of ear. When this LN accessed there is a small spot of missing hair. When asked why she was pulling her hair she stated that she didn t like the hair that was there. After looking in the mirror, she didn t like what she saw in the mirror. LN stated that its a reflection so she was looking at herself. She then stated it wasn t her, it was Katie's and she was evil. The pulling of little bits of hair kept through the night and was redirectable after 1st being noticed by the 1:1. She would get a little bit then 1:1 would say something and she would stop for a little while. She was given PRN anxiety meds x2 to attempt to help relax PT. also at some point during the shift PT misplaced the pen that she had been using. Attempts to locate pen by 3 different people not successful. Charge nurse and nursing house mover supervisor were advised. This LN was informed that PT was on a hold but not related to SI and is not a harm risk at this time.
[2025-01-24 06:29] LABS: Anion Gap 7.0 mmol/L (3-11); Blood Urea Nitrogen 17.0 mg/dL (8-24); CO2, Blood 31.0 mmol/L (21-32); Calcium, Blood 8.8 mg/dL (8.5-10.1); Chloride, Blood 101.0 mmol/L (98-108); Creatinine, Blood 0.82 mg/dL (0.40-1.00); Glucose, Blood 156.0 mg/dL (70-99); Potassium, Blood 3.6 mmol/L (3.5-5.5); Sodium, Blood 135.0 mmol/L (136-145)
[2025-01-24 07:23] VITALS: BP 130/75
--- NOTE | 2025-01-24 12:21 | NUR ---
Pt. is awake in bed and welcomes my visit. Pt. displayed evidence of some confusion and distraction but less then a previous visit with this endocrinology teacher. Pt. verbalized concern about feeling she was spiritually oppressed. Listened with empathy and a calming presence. Pt. displayed evidence of trusting the spiritual care visit. At the Pts. request this endocrinology teacher prayed for the Pt. Pt. verbalized gratitude for the spiritual care visit.
[2025-01-24 15:40] VITALS: BP 132/70
--- NOTE | 2025-01-24 18:15 | NUR ---
REPORT RECEIVED AND VERIFIED. PT IS ALERT AND ORIENTED AT TIME HAS A LOT OF DELUSIONS, HALLUCINATION AND AT TIMES SEEMS VERY MANIC, BUT EXPRESSES NO SIGN OF SELF HARM OR WANTING TO HARM OTHERS. PT HAS BEEN VERY PLEASENTLY CONFUSED AND COOPERATIVE WITH CARE. DR. HANSON INTO SEE PT A AGREED TO ALLOW HOLD TO TODAY, WITH A RECOMMENDATION FOR GERICATIC PSYCH UNIT. POA IS AWARE AND EXPRESSED HER DESIRE FOR PT TO NOT GO FAR [place] IF PRISON CARE WAS NOT PLANNED. [facility] HOPING FOR PRISON PSYCH CARE. SITTER AT BEDSIDE MONIOTRING PT AND HAS BEEN WITNESS TO PT MANIC AND DELUSIONAL BEHAVIOR. WILL CONT TO MONITOR
[2025-01-24 19:36] VITALS: BP 130/71
[2025-01-25 02:22] VITALS: BP 108/62
[2025-01-25 07:32] VITALS: BP 137/75
[2025-01-25 15:05] VITALS: BP 144/78
--- NOTE | 2025-01-25 19:00 | NUR ---
ASSUMED CARE OF PT. PT DOING WELL TODAY BUT IS STILL HAVING DELUSIONS OF BEING AND POSSIBLY GIVING SOON. PT IS REDIRECTABLE AND COOPERATIVE WITH CARE. SISTER HAS OCCASIONALLY BEEN AT BEDSIDE. [facility] FROM [facility] CALLED TODAY REQUESTING UPDATES ON PT. OTHERWISE THERE HAS BEEN NO CHANGES IN PT CONDITION PT STILL MEDICALLY STABLE AND AWAITING FACILITY TRANSFER.
[2025-01-25 19:10] VITALS: BP 138/74
[2025-01-26 05:12] VITALS: BP 99/64
[2025-01-26 05:40] LABS: Anion Gap 6.0 mmol/L (3-11); Blood Urea Nitrogen 20.0 mg/dL (8-24); CO2, Blood 32.0 mmol/L (21-32); Calcium, Blood 8.7 mg/dL (8.5-10.1); Chloride, Blood 103.0 mmol/L (98-108); Creatinine, Blood 0.93 mg/dL (0.40-1.00); Glucose, Blood 121.0 mg/dL (70-99); Potassium, Blood 3.7 mmol/L (3.5-5.5); Sodium, Blood 137.0 mmol/L (136-145)
[2025-01-26 07:33] VITALS: BP 116/65
[2025-01-26 15:11] VITALS: BP 135/69
--- NOTE | 2025-01-26 16:22 | NUR ---
entered pt. room found pt in bathroom,was naked from waist up drilling rig operator went to get bath wipes for pen markings all over pts abdomen,arms,legs,back,and face.drilling rig operator used bath wipes to clean off pen markings
--- NOTE | 2025-01-26 18:43 | NUR ---
PT ALERT AND ORIENTED TO SELF, PLACE, AND DATE, NOT SITUATION. PT STILL HAS DELUSIONS THAT THE IS WITH TRIPLETS AND REPEATEDLY ASKS FOR ENEMA. PT STATES THAT SHE HAS POOPED MULTIPLE TIMES TODAY, BUT FLUSHES BEFORE STAFF CAN ASSESS STOOL. PT REPEATEDLY REMOVED HER CLOTHING. PT REPEATEDLY ATTEMPTED TO LEAVE ROOM AND GO INTO ANOTHER PT ROOM, PT STATED THAT THE PT ACCROSS THE WHITTEN IS HER . SITTER ASSIGNED FOR SHORT PERIOD OF TIME, BUT PT DID NOT ATTEMPT TO LEAVE HER ROOM AGAIN SO NEED FOR SITTER UNECESSARY. PT CALLS FREQUENTLY, PLEASANT AND REDIRECTABLE, BUT QUICKLY FORGETS INSTRUCTION.
[2025-01-26 19:48] VITALS: BP 142/73
[2025-01-26] MEDS ORDERED: Polyethylene Glycol 3350 17 gm PO SCH (21:00)
[2025-01-27 03:25] VITALS: BP 113/59
--- NOTE | 2025-01-27 05:02 | NUR ---
SHIFT SUMMARY: PT AOX3-4 WITH CONFUSION AND FORGETFULNESS. SOME AUDITORY AND VISUAL HALLUCINATIONS BUT OVERALL PLEASANT. ABUSES THE CALL LIGHT AND EVENT TURNS OWN BED ALARM ON JUST TO SET IT OFF. PT EDUCATED ON PROPER USE OF LIGHT BUT IS NON COMPLIANT. IS OTHERWISE COMPLIANT WITH CARE. TOLERATING MEDICATIONS WELL, ALTHOUGH COMPLAINED A LOT OF "LABOR PAINS" MEDICATED PER EMR. PT CONTINUES TO MAKE INNAPROPRIATE COMMENTS TOWARDS STAFF BUT IS NOT AGGRESSIVE AT ALL. PT DID NOT SLEEP MUCH LAST NIGHT. PT IN BED RESTING, BED IN LOWEST POSITION, CALL LIGHT IN REACH. CONTINUING CARE.
[2025-01-27 07:20] VITALS: BP 125/81
[2025-01-27 15:25] VITALS: BP 144/70
--- NOTE | 2025-01-27 19:13 | NUR ---
SHIFT SUMMARY CLIENT IS AOX1. EXPERIENCING VARIOUS DELUSION MAJORITY OF SHIFT. TOOK OF CLOTHES AND BECAME SEXUALLY INAPPRPORIATE ABOUT LONG TERM THROUGH SHIFT. INAPPROPRIATE USE OF CALL LIGHT FOR SECONDARY GAIN (ATTENTION SEEKING / EXABITIONISTIC BEHAVIOR). THREW FOOD AND DRINKS INSIDE OF ROOM. REPEATEDLY ASKED FOR STAFF FOR PENS / SHARPY'S. MEDICATION COMPLIANT. BED IS IN LOW POSITION AND CALL LIGHT IS WITHIN REACH
[2025-01-27 19:20] VITALS: BP 132/69
[2025-01-28 02:16] VITALS: BP 119/66
--- NOTE | 2025-01-28 05:10 | NUR ---
SHIFT SUMMARY: PT AOX4 WITH DELUSIONS AND HALLUCINATIONS. PT STILL MAKING INNAPPROPATE COMMENTS TO STAFF. COOPERATIVE IN CARE AND PLEASANT. PT CONTINUES TO ENDORSE THAT SHE IS OR HAVING SOME SORT OF CYST REMOVAL/ TAILBONE ABNORMALITY. DENIES PAIN, CP, OR SOB. TOLERATING MEDICATIONS WELL. SOME AGITATION/ ANXIETY MEDICATED PER EMR. PT CONTINUES TO CALL INAPPORPAITELY DESPITE REEDUCATION ON CALLING. PT IN BED RESTING, BED IN LOWEST POSITION, CALL LIGHT IN REACH. CONTINUING CARE.
[2025-01-28 07:58] VITALS: BP 129/79
[2025-01-28 16:05] VITALS: BP 142/82
[2025-01-28 19:28] VITALS: BP 139/69
--- NOTE | 2025-01-28 19:39 | NUR ---
SHIFT SUMMARY CLIENT IS AOX1-2. CLIENT EXHIBITING DELUSIONAL THINKING, WELL AUDITORY HALLUCINATIONS. CLIENT REFUSED TO REMAIN DRESSED. SEXUALLY INAPPROPRIATE TO STAFF. HAD EPISODES OF THROWING TRASH AROUND ROOM AND AT ONE POINT PARTIALLY CLOGGED TOILET. DECISION WAS MADE TO PLACE A SITTER. BED IS IN LOW POSITION AND CALL LIGHT IS WITHIN REACH
[2025-01-29 04:10] VITALS: BP 148/73
--- NOTE | 2025-01-29 05:39 | NUR ---
PATIENT WAS COOPERATIVE THROUGHOUT SHIFT. PATIENT ON ROOM AIR, UP INDEPENDENTLY. SITTER AT BEDSIDE. PATIENT ABLE TO SWALLOW BILLS WHOLE. MELANTONIN GIVEN FOR SLEEP; TYLENOL GIVEN FOR PAIN. BED IN LOW POSITION AND WHEELS LOCKED. PATIENT USES CALL LIGHT APPROPRIATELY. CALL LIGHT WITHIN REACH
[2025-01-29 07:39] VITALS: BP 120/60
[2025-01-29 15:29] VITALS: BP 125/76
--- NOTE | 2025-01-29 18:46 | NUR ---
SHIFT SUMMARY CLIENT IS AOX1-2. CONTINUES TO EXPERIENCE ONGOING DELUSIONS. SITTER IS IN PLACE. CLIENT HAS BEEN CALM MOST OF THE DAY, BUT DID HAVE EPISODES OF ANGER AND THREW THINGS AROUND ROOM AND WAS VERBALLY ABUSIVE TO STAFF. WAS MEDICATION COMPLIANT. STILL AWAITING PLACEMENT INTO A FACILITY. BED IS IN LOW POSITION AND CALL LIGHT IS WITHIN REACH
[2025-01-29 19:34] VITALS: BP 160/86
--- NOTE | 2025-01-30 03:19 | NUR ---
01/30/25 0030 Received call from [facility] regarding inpt psych.placement. States pt was denied by their doctor stating he believes she needs geriatric psych. placement.
[2025-01-30 05:37] VITALS: BP 136/78
--- NOTE | 2025-01-30 06:21 | NUR ---
SHIFT SUMMARY PT SLEPT INTERMITTENTLY DURING THE NIGHT. SITTER AT BEDSIDE. PT INDEPENDENT IN ROOM. PT CONTINUES TO HAVE DELUSIONS- REDIRECTED NEEDED. PT COOPERATIVE WITH CARE. BED IN LOWEST POSITION, SHORT CALL LIGHT IN ROOM, SIDERAILS UP X2.
[2025-01-30 07:11] VITALS: BP 130/74
[2025-01-30 15:58] VITALS: BP 126/68
--- NOTE | 2025-01-30 17:22 | NUR ---
SHIFT SUMMARY PATIENT A/OX2, PLEASANT AND COOPERATIVE WITH CARE, HOWEVER DELUSIONAL. PATIENT BELIEVES THAT SHE IS WITH TRIPLETS. PATIENT COMPLAINING OF HEADACHE EARLY THIS AFTERNOON AND REQUESTING EXCEDRINE, REFUSING TO TAKE TYLENOL. LEFT VOICEMAIL WITH DR. FREEMAN. NO NEW ORDERS RECEIVED. PATIENT LATER STATES HEADACHE HAS RESOLVED WITHOUT MEDICATION. PATIENT S SISTER AND POA. VILLARREAL, AT BEDSIDE THIS EVENING AND DELIVERED PAPERWORK STATING PATIENT S HISTORY OF PHYSICAL BEHAVIORS INCLUDING THROWING TVs AND OTHER ITEMS AT THE SISTER AND FINANCIAL BEHAVIORS LIKE GIVING LARGE SUMS OF MONEY TO STRANGERS AND SCAMMERS. NAVAL ARCHITECT SPECIALIST INFORMED AND PAPERWORK PLACED IN PATIENT S PAPER CHART. 1:1 SITTER AT BEDSIDE. NO OTHER CONCERNS AT THIS TIME. WILL CONTINUE TO MONITOR.
[2025-01-30 20:55] VITALS: BP 152/92
[2025-01-31 03:59] VITALS: BP 102/60
--- NOTE | 2025-01-31 05:46 | NUR ---
SHIFT SUMMARY PT SLEPT INTERMITTENTLY DURING THE NIGHT. INDEPENDENT IN ROOM. MEDICATED FOR EDEN WITH TYLENOL PER EMAR. PT CONTINUES TO HAVE DELUSIONS AND HALLUCINATIONS. SITTER AT BEDSIDE. BED IN LOWEST POSITION, SHORT CORD CALL LIGHT IN ROOM. SIDERAILS UP X2.
[2025-01-31 07:20] VITALS: BP 137/79
[2025-01-31 15:54] VITALS: BP 149/74
--- NOTE | 2025-01-31 18:07 | NUR ---
SHIFT SUMMARY: PATIENT A/O TO SELF AND PLACED, CONFUSED AND DELUSIONAL. PATIENT IS PLEASANT AND COOPERATIVE c CARE. PATIENT HAS 1:1 SITTER FOR SAFETY. PATIENT MEDICATED FOR HEADACHE PER EMAR. PATIENT HAS GREAT APPETITE, CONTINENT OF BLADDER AND WEARS ATTENDS. PATIENT HAD SHOWER AND LINEN CHANGED c MINIMAL PREPRESS STRIPPER FROM PHOTOCOMPOSITION KEYBOARD OPERATOR. PATIENT RECEIVED SCHEDULED MEDS PER EMAR. VITAL SIGNS REVIEWED. PATIENT SISTER-POA (CAROLYN) VISITED TODAY, UPDATES GIVEN, VERBALIZED UNDERSTANDING AND NO FURTHER QUESTIONS. PATIENT AMBULATED IN HALLWAY X1 ACCOMPANIED BY PHOTOCOMPOSITION KEYBOARD OPERATOR AND CAROLYN.
[2025-01-31 19:38] VITALS: BP 147/78
[2025-02-01 04:37] VITALS: BP 127/65
[2025-02-01 07:32] VITALS: BP 155/88
--- NOTE | 2025-02-01 07:37 | NUR ---
PPAP COORDINATOR SUMMARY: NO ACUTE EVENTS TO REPORT THIS SHIFT. PT ALERT; CONFUSED; DELUSINAL. CALM AND COOEPRATIVE WITH CARE. MEDICATED FOR PAIN PER EMAR. PATIENT'S POA (SISTER SHARMILA) UPDATED WITH PATIENT CONDITION AND PLAN OF CARE). BED LOW & LOCKED; CALL LIGHT WITHIN REACH-PT USES APPROPRIATELY. REPORT GIVEN TO ONCOMING RN.
[2025-02-01 15:14] VITALS: BP 137/83
--- NOTE | 2025-02-01 16:34 | NUR ---
SHIFT SUMMARY: PATIENT HAD OT EPISODE OF THREWING CUP OF ICE WATER ACCROSS HER ROOM TODAY. PATIENT STATED "I'M THREWING FREDERICK WATER, THERE IS A DEMON HERE." PATIENT ALERT AND ORIENTED TO SELF AND PLACED, CONFUSED, BUT EASILY REDIRECTABLE. PATIENT CONTINUES TO BE DELUSIONAL, INTERMITTENT VISUAL AND AUDITORY HALLUCINATION. PATIENT RECEIVED SCHEDULED MEDS PER EMAR. PATIENT HAS GREAT APPETITE, CONTINENT OF BLADDER AND USES BATHROOM c SUPERVISION. PATIENT HAS 1:1 SITTER FOR SAFETY. PATIENT SHOWERED TODAY c MINIMAL ALMOND GRINDER. PATIENT HAS NO IV PER ORDER. VITAL SIGNS REVIEWED.
[2025-02-01 21:07] VITALS: BP 124/72
--- NOTE | 2025-02-02 03:59 | NUR ---
SHIFT SUMM: PT HAS BEEN ABLE TO GET SOME SLEEP THIS SHIFT. PT TOLERATED MEDS WELL AND HAS BEEN IN A PLEASANT MOOD THIS SHIFT. PT STILL HAS SOME AUDITORY/VISUAL HALLUCINATIONS. PT HAS A 1:1 SITTER. PT IS IND IN ROOM AND LETS SITTER KNOW WHEN SHE NEEDS SOMETHING. PT HAS HAD A LARGE APPETITE THIS SHIFT. BED LOW AND LOCKED. AND MINIMAL OBJECTS/SUPPLIES IN ROOM BECAUSE PT SOMETIMES THROWS THINGS.
[2025-02-02 05:44] VITALS: BP 116/68
[2025-02-02 07:37] VITALS: BP 101/66
[2025-02-02 16:27] VITALS: BP 127/77
--- NOTE | 2025-02-02 16:30 | NUR ---
SHIFT SUMMARY: PATIENT HAS HAD NO NEW CHANGES THIS SHIFT. PATIENT CONTINUES TO HAVE VISUAL AND AUDITORY HALLUCINATION, EPISODE OF PULLING HER HAIR AND TOOK A CHUNK OUT. PATIENT A/O TO SELF ONLY, CONFUSED, REDIRECTABLE, PLEASANT AND COOPERATIVE c STAFF. PATIENT RECEIVED SCHEDULED MEDS PER EMAR. DR. [place] ([facility]) CAME BY TODAY BROUGHT GUARDIANSHIP LETTER FILED IN PATIENT CHART AND MADE SOME CHANGES ON HER MEDS. PATIENT HAS 1:1 SITTER FOR SAFETY. PATIENT HAS GREAT APPETITE, CONTINENT OF BAB AND USES BATHROOM c SUPERVISION.
[2025-02-02 19:22] VITALS: BP 136/67
[2025-02-03 05:01] VITALS: BP 123/71
--- NOTE | 2025-02-03 05:02 | NUR ---
PT HAS BEEN CONFUSED T/O THIS SHIFT WAS PULLING OUT HAIR SPEAKING. SPEAKING NONSENSE. BELIEVES SHE IS IN AND IN LABOR. SHE HAS REQUESTED ZYPREXA T/O THIS SHIFT DUE TO AGITATION AND ANXIETY. PT HAS MADE SEXUALLY INNAPROPRIATE COMMENTS TO MALES THIS SHIFT AND DUE TO THIS MALES HAVE NOT BEEN CARING FOR PATIENT. PT HAD LARGE BOWEL MOVEMENT AND HAS SLEPT VERY LITTLE THIS SHIFT.
[2025-02-03 08:09] VITALS: BP 133/71
--- NOTE | 2025-02-03 10:55 | NUR ---
UPDATE PT SISTER CHERELLE TOOK HOME PT INSURANCE CARDS AND ID.
[2025-02-03 15:32] VITALS: BP 152/79
--- NOTE | 2025-02-03 18:21 | NUR ---
SHIFT SUMMARY: PATIENT A+O X3 THROUGHOUT THIS SHIFT. SISTER AT BEDSIDE FOR MOST OF DAY. PLAN FOR PLACEMENT. PATIENT STILL EXPERIENCING VISUAL HALLUCINATIONS DURING THIS DAY. DR. MARIN CALLED EARLY THIS AM AND UPDATED THIS PATIENTS SEROQUEL TO 800MG AT BEDTIME. NO IV ACCESS WITH ORDERS IN PLACE. PLAN OF CARE ONGOING AT THIS TIME, WILL CONTINUE TO MONITOR.
[2025-02-03 19:20] VITALS: BP 142/76
[2025-02-04 05:16] VITALS: BP 111/88
--- NOTE | 2025-02-04 05:17 | NUR ---
PT C/O OF ANXIETY AND REQUESTED ZYPREXA. MEDICATION GIVEN RX. PT a&o WITH DELUSION, PARANOI AND CONFUSION. PT BELIEVED SHE IS PREGENANT AND IN LABOR. SHE C/O HOT POKERS IN HER BACK. TYLENOL GIVEN RX. PT SLEPT FOR SEVERAL HOURS AFTER ZYPREXA WAS GIVEN. PT HAS SLEPT T/O A GOOD PORTION OF ROSHAN NIGHT. EASILY AWAKENS TO NAME AND EASILY REDIRECTABLE.
--- NOTE | 2025-02-04 06:29 | NUR ---
PT WOKE UP FROM [place]AP EXTREMELY ANXIOUS, MEDICATIONS GIVEN RX. PT BEGAN SPITTING FOOD AND THROWING CUPS. PT IS REDIRECTABLE BUT REMAINS VISIBLY ANXIOUS. ZYPREXA GIVEN RX. PT REPORTING SHE WILL NEED TO GET DRESSED TO GET ON THE MOTHER SHIP. PT HAS CONTINUED TO HAVE DELUSIONS AND PARANOIA T/O THIS HIFT.
[2025-02-04 07:45] VITALS: BP 110/65
--- NOTE | 2025-02-04 14:01 | NUR ---
Pt. is awake in a chair and welcomes my visit. Pt. displays evidence of being pleasantly confused, but verbalized that she remembered this regulatory affairs director froma previous visit. Life review with the Pt. is difficult because the Pt. displays evidence of weaving between present reality and something else. Pt. did welcome prayer. Prayed with Pt. Pt. verbalized gratitude for the spiritual care visit.
[2025-02-04 16:09] VITALS: BP 162/86
--- NOTE | 2025-02-04 17:30 | NUR ---
SHIFT SUMMARY PT IND IN ROOM AND AOX2-3. PT CONTINUES TO BE HYPERSEXUAL THROUGH OUT SHIFT. PT HAS A SITTER A BEDSIDE. NO ACUTE CHANGES DURING THE SHIFT. PT STILL WAITING ON GAURDIANSHIP AND PLACEMENT.
[2025-02-04 19:53] VITALS: BP 157/81
[2025-02-05 04:01] VITALS: BP 113/60
--- NOTE | 2025-02-05 05:04 | NUR ---
SHIFT SUMMARY; PATIENT SLEPT IN LONG INTERVALS, ABLE TO REDIRECT HER BEHAVIOR. 1:1 SITTER. PRN PAIN AND STOOL SOFTNER GIVEN.
[2025-02-05 06:55] VITALS: BP 129/75
--- NOTE | 2025-02-05 17:05 | NUR ---
SHIFT SUMMARY PT AOX2, DELUSIONS AND PARANOIA. 1:1 SITTER. MEDICATED FOR PAIN PER THE EMAR. UP ADLIB IN THE ROOM. WAITING ON GUARDIANSHIP. PT REPOSITIONS SELF. CALL LIGHT WITHIN REACH, BED LOCKED AND IN THE LOWEST POSITION. WILL REPORT TO ONCOMING NURSE.
--- NOTE | 2025-02-05 17:22 | NUR ---
SHIFT SUMMARY PT CONT LEVEL OF CARE. PT NOTED TO BE A&OX3 AND NOTED TO BE IND IN ROOM WITH 1:1 SITTER PRESENT AT ALL TIMES. PT NOTED TO BE DELUSIONAL. PT NOTED TO HYPERFIXATE ON THE IDEA SHE NEEDS SURGERY PT STATED "HER OVARIES HAVE HOT STONES IN THEM PLACED BY THE DEVIL." PT HAS BEEN REDIRECTED T/O THIS SHIFT TO STOP PULLING AT HER HAIR. PT NOTED TO BE HYPERSEXUAL THIS SHIFT AND NOTED TO MASTERBATE "STATING THE DEVIL LIKES TO MAKE LOVE TO ME" PT HAS RECEIVED PRN SEROQUEL THIS SHIFT SEE MAR FOR DETAILS.
[2025-02-05 17:25] VITALS: BP 145/86
[2025-02-05 19:26] VITALS: BP 138/84
[2025-02-06 04:22] VITALS: BP 110/63
--- NOTE | 2025-02-06 05:03 | NUR ---
SHIFT SUMMARY; PATIENT SLEPT IN SHORT INTERVALS. SITTER 1:1 ALL NIGHT. PLEASANT, BUT ACTIVE AT TIMES, DID NOT THROW THINGS. HAD A BAD DREAM WHILE SLEEPING.
[2025-02-06 07:27] VITALS: BP 126/64
--- NOTE | 2025-02-06 14:33 | NUR ---
"Spiritual Care | Pt. Referral Pt. is awake in bed when she welcomes my visit. Pt. is pleasant, but does display some evidence of confusion. Pt. verbalized that she had requested a staff appraiser because she would like a bible with the old and new testament. After consulting with the Pts. nurse, a bible was given to the Pt. Should the Pt. use it disrespectfully she may lose the priviledge to have it."
[2025-02-06 15:14] VITALS: BP 143/61
--- NOTE | 2025-02-06 16:40 | NUR ---
SHIFT SUMMARY PT AOX3, DELUSIONS AND GRANDIOSE IDEALS. 1:1 SITTER PRESENT. PT INDEPENDENT IN THE ROOM. NO ACUTE CHANGES THIS SHIFT. MEDICATED FOR BACK PAIN PER THE EMAR. REPOSITIONS SELF IN BED AND THE CHAIR. WAITING ON GUARDIANSHIP. PT DOES CALL SOMETIMES. CALL LIGHT WITHIN REACH, BED LOCKED AND IN THE LOWEST POSITION. WILL REPORT TO ONCOMING NURSE.
[2025-02-06 19:10] VITALS: BP 148/75
[2025-02-07 03:53] VITALS: BP 133/74
--- NOTE | 2025-02-07 04:22 | NUR ---
SHIFT SUMMARY ADMITTED FOR UTI - NOW RESOLVED. FULL CODE. PLAN IS FOR GUARDIANSHIP/PLACEMENT. SHE IS A&O X2, CAN BE IMPULSIVE AND INAPPROPRIATE AT TIMES. DR. MARIN IS PSYCH CONSULT. SHE IS ON RA, INDEPENDENT, CARDIAC DIET. MEDICATED HER FOR A HEADACHE THIS SHIFT. SHE WAS CALM AND COOPERATIVE WITH CARE THIS SHIFT. HX: SCHIZOPHRENIA, DEMENTIA, BIPOLAR.
[2025-02-07 07:27] VITALS: BP 132/60
[2025-02-07 15:39] VITALS: BP 146/79
--- NOTE | 2025-02-07 17:08 | NUR ---
SHIFT SUMMARY: A&OX2-3 THIS SHIFT. PLEASANT WITH CARE PROVIDED. 1:1 SITTER REMAINS AT PT BEDSIDE FOR SAFETY. PT AMBULATES INDEPENDENTLY IN ROOM. OCCASIONAL INNAPROPRIATE SEXUAL COMMENTS FROM PT. PT DENIES SHORTNESS OF BREATH AND CHEST PAIN. TREATED PER EMAR THIS SHIFT. LYING IN BED AT THIS TIME. BED IN THE LOWEST POSITION. CALL LT WITHIN REACH.
[2025-02-07 19:01] VITALS: BP 156/76
--- NOTE | 2025-02-08 03:59 | NUR ---
SHIFT SUMMARY ADMITTED FOR UTI - RESOLVED. FULL CODE. PLAN IS FOR GUARDIANSHIP/PLACEMENT. AWAITING LTC MEDICAID. SHE IS A&O X3, IMPULSIVE AT TIMES. SHE DOES HALLUCINATE AND HAVE DELUSIONS. CARDIAC DIET, INDEPENDENT, ON RA. DR. MARIN IS PSYCH CONSULT. HX: BIPOLAR, SCHIZOPHRENIC, DEMENTIA. NO NEW CONCERNS THIS SHIFT.
[2025-02-08 04:49] VITALS: BP 119/76
[2025-02-08 07:21] VITALS: BP 122/63
[2025-02-08] MEDS ORDERED: Albuterol HFA200 ACT/6.7 GM INH INH PRN (13:20)
[2025-02-08 15:05] VITALS: BP 151/89
--- NOTE | 2025-02-08 16:53 | NUR ---
SHIFT SUMMARY: 1:1 REMAINS AT BEDSIDE. PLEASANT THROUGHOUT SHIFT. UP IN ROOM INDEPENDENTLY. LYING IN BED AT THIS TIME WATCHING TV. BED IN THE LOWEST POSITION. CALL LT NEAR. NO ACUTE EVENTS.
[2025-02-08 20:15] VITALS: BP 154/89
[2025-02-09 04:14] VITALS: BP 131/72
--- NOTE | 2025-02-09 05:03 | NUR ---
SHIFT SUMMARY NOC PT A/O X 2-3. PLEASANT AND COOPERATIVE WITH CARE. VSS. PT HAD NO BEHAVIORS DURING SHIFT AFTER BEING MEDICATED PER EMAR. PT REQUESTED ADDITIONAL DOSE OF SEROQUEL FOR SLEEP. PT HAS 1:[address] FOR SAFETY. PT CURRENTLY RESTING WITH BED IN LOWEST POSITION, AND CALL LIGHT WITHIN REACH.
[2025-02-09 08:02] VITALS: BP 107/87
[2025-02-09] MEDS ORDERED: Formoterol/Mometasone MDI 5/200 mcg 13 GM INH SCH (11:25)
--- NOTE | 2025-02-09 17:04 | NUR ---
SHIFT SUMMARY PT SLEEPING AT START OF SHIFT. WOKE EASILY FOR CARE. UP INDEPENDENTLY IN RM AND TO BTHRM. PLEASANT AND CO-OP WITH CARE. C/O PAIN THIS AM; MORNING MEDS GIVEN PER EMAR WITH NO FURTHER C/O. NYSTATIN PLACED IN ABD FOLDS AND UNDER BREAST'S FOR YEAST REDNESS. SOME CONFUSION NOTED AT TIMES, BUT PLEASANT. EATS AND DRINKS WELL. PT WAITING LTC PLACEMENT. CALL LT IN REACH.
[2025-02-09 17:14] VITALS: BP 147/79
[2025-02-09 19:33] VITALS: BP 141/88
[2025-02-10 04:20] VITALS: BP 114/62
--- NOTE | 2025-02-10 04:21 | NUR ---
SHIFT SUMMARY NOC PT A/O X 2-3. PLEASANT AND COOPERATIVE WITH CARE. VSS. NO ACUTE CHANGES TO REPORT. 1:[address] FOR SAFETY. PT RECEIVED SCHEDULED DOSES OF SEROQUEL AND ATIVAN PER EMAR AND NO BEHAVIOURS NOTED. PT DID HAVE CONCERN ABOUT TOE NAIL GROWTH AND IS REQUESTING CALCIUM SUPPLEMENT. PT IS AWAITING GUARDIANSHIP FOR PLACEMENT. PT CURRENTLY RESTING WITH BED IN LOWEST POSITION, AND CALL LIGHT WITHIN REACH.
[2025-02-10 07:42] VITALS: BP 127/76
[2025-02-10 15:17] VITALS: BP 146/84
--- NOTE | 2025-02-10 17:08 | NUR ---
DAY SUMMARY PT HAS BEEN COOPERATIVE W/CARES THIS SHIFT, CLINICAL SITTER AT BEDSIDE, NO BEHAVIORS REPORTED, VSS, NO ACUTE CHANGES, WILL CONT TO MONITOR UNTIL REPORT GIVEN TO ONCOMING NURSE.
[2025-02-10 20:28] VITALS: BP 153/78
[2025-02-11 03:28] VITALS: BP 118/67
--- NOTE | 2025-02-11 06:15 | NUR ---
SHIFT SUMMARY: Pt admitted for UTI and is a full code. Is alert and able to make needs known. ADLs have been IND. denies pain or discomfort when asked. 1:1 in room to help redirect.
--- NOTE | 2025-02-11 14:10 | NUR ---
PT RECIEVED A PHONE CALL FROM FRIEND POLLO TODAY @ 1400. THIS SITTER WITNESSED THE PT GETTING ANXIOUS BY WHATEVER THE CONVERSATION WAS BEING HAD. I HEARD THE PT STATE "ARE YOU TRYING TO RILE ME UP, POLLO?" PT GOT OFF THE PHONE D/T PASTORAL CARE COMING FOR A VISIT. WHEN THE VISIT WAS OVER, PT CALLED POLLO BACK. THIS SITTER HEARD THE PT STATE "GO AHEAD AND TAKE 60 DOLLARS ADAMS."
--- NOTE | 2025-02-11 14:12 | NUR ---
"Spiritual Care | Pt. Request Pt. is awake in her room and finishes a phone call call before she welcomes my visit. Pt. has a 1:1 sitter who is present for most of the visit. Pt. displays evidence of being unsettled by a past experience of spiritual oppression. With theraputic listening and a calming presence Pt. displays evidence of reduced anxiety. Considered other matters of daniela and belief. Pt. displayed evidence of clearer thinking than in previous visits by this executive compensation analyst. Prayed with the Pt. Pt. verbalized gratitude for the spiritual care visit."
[2025-02-11 16:07] VITALS: BP 149/82
[2025-02-11] MEDS ORDERED: Docusate Sodium/Senna 1 Tab PO PRN (16:31)
[2025-02-11] MEDS ORDERED: Polyethylene Glycol 3350 17 gm PO PRN (16:35)
--- NOTE | 2025-02-11 18:04 | NUR ---
DAY SUMMARY NO ACUTE CHANGES THIS SHIFT, PT HAD 5 LOOSE (NOT WATERY) BM'S THIS SHIFT, NOTIFIED PROVIDER, BOWEL CARE ORDERS CHANGED, PT ALSO C/O INCREASED ANXIETY THIS SHIFT, NEW ORDER FOR PRN ATIVAN, 1ST DOSE GIVEN, WILL CONT TO MONITOR UNTIL REPORT GIVEN TO ONCOMING NURSE.
[2025-02-11 19:26] VITALS: BP 149/84
--- NOTE | 2025-02-11 22:55 | NUR ---
THIS KNITTING MACHINE FIXER RECEIVED A NOTE TO CALL CHERELLE BRANDON @[phone] WHO REQUESTED TO GET AN UPDATE ON PT'S CONDITION TODAY. THIS KNITTING MACHINE FIXER ATTEMPTED TO CALL CHERELLE; NOT ANSWERING PHONE CALL AND UNABLE TO LVM.
--- NOTE | 2025-02-12 03:19 | NUR ---
SHIFT SUMMARY NO ACUTE EVENTS DURING THIS SHIFT. PT IS A/OX3-4, ABLE TO MAKE HER NEEDS KNOWN AND COOPERATIVE WITH CARE. PT AMBULATES INDEPENDENTLY WITHIN THE HOSPITAL ROOM. REDIRECTED BACK TO BED ONCE DURING THE NIGHT HRS, WHEN PT WONDERING AND ATTEMPTING TO LEAVE THE ROOM. REDIRECTABLE. PT DENIES PAIN AND DISCOMFORT AT HS. NO BM DURING THIS SHIFT. PER RN SBAR, PT HAD MULTIPLE LOOSE STOOLS DURING PREVIOUS SHIFT AND A NEW ORDER FOR IMMODIUM PRN WAS RECEIVED. THIS RUNNER OUT RECEIVED A REQUEST TO CALL CHERELLE FOR AN UPDATE, THIS RUNNER OUT ATTEMPTED TO CALL, UNABLE TO LVM. BED AT THE LOWEST POSITION, CALL LIGHT WITHIN REACH.
[2025-02-12 04:09] VITALS: BP 117/64
[2025-02-12 07:30] VITALS: BP 134/77
[2025-02-12 15:11] VITALS: BP 140/78
--- NOTE | 2025-02-12 15:18 | NUR ---
Pt. is awake and welcomes my visit. Pt. is pleasant, and displays evidence of no longer needing a 1:1 sitter. Facilitated an update, and Pt. verbalized some possible plans to discharge to another care facility. This director perioperative attempted to assess who the Pt. felt about being ready for a big change. Pt. displayed evidence of understanding and reasonable agreement about the the presumed plans. Listened with empathy and a Pastoral presence. Pt. verbalized that she no longer feels an evil presence like she did when she first came to us. Prayed with the Pt. Pt. verbalized gratitude for the spiritual care visit.
--- NOTE | 2025-02-12 17:30 | NUR ---
Shift Summary Ms Salas is orientated to self, place, date, not to situation. Some dilusional ideas voiced throughout the day. She is calm and cooperative with care. She ambulates independently into the bathroom. C/O mild right flank and RUQ abdominal discomfort when questioned. C/O pain to both thumb joints that was helped with tylenol. Pleasant affect and calm mood throughout the day. Bed low, call light in reach.
[2025-02-12 19:38] VITALS: BP 154/80
[2025-02-12] MEDS ORDERED: Miconazole Nitrate 2% 85 GM PWD TOP SCH (21:00)
[2025-02-13 03:16] VITALS: BP 115/63
--- NOTE | 2025-02-13 03:45 | NUR ---
SHIFT SUMMARY NO ACUTE EVENTS DURING THIS SHIFT. PT DENIES PAIN AND DISCOMFORT. PT IS A/O X3-4, ABLE TO MAKE HER NEEDS KNOWN AND COOPERATIVE WITH CARE. 2X BM THIS SHIFT. PT DENIES PAIN AND DISCOMFORT. BED AT THE LOWEST POSITION, CALL LIGHT W/I REACH.
[2025-02-13 07:23] VITALS: BP 135/73
[2025-02-13 14:54] VITALS: BP 136/79
--- NOTE | 2025-02-13 15:43 | NUR ---
Shift Summary Ms Salas is orientated to self, place, date, but has voiced some dilusional ideas for the reason for being in hospital. She has been calm and pleasant, using call light appropriately, ambulating independently in her room/bathroom. She can be redirected from her confused ideas calmly. Pain is well controlled. Bed low, call light in reach.
[2025-02-13 20:10] VITALS: BP 137/78
--- NOTE | 2025-02-14 03:38 | NUR ---
SHIFT SUMMARY NO ACUTE EVENTS DURING THIS SHIFT. PT IS PLEASANT, A/O X3, ABLE TO MAKE HER NEEDS KNOWN. PT HAS SOME DELUSIONAL IDEAS, UNABLE TO REDIRECT FROM THE STATEMENTS. PT REPORTS SOME ANXIETY TOWARDS PLACEMENT AFTER D/C FROM THE HOSPITAL. GUARDIANSHIP PENDING. AT HS PT REPORTS 4/10 TENSION H/A, MEDICATED WITH PRN TYLENOL. PT IS ON RA, O2 SAT'S LOW 90'S. PT DENIES SOB AT HS. BED AT THE LOWEST POSITION, CALL LIGHT W/I REACH. PT RESTING WELL T/O THIS SHIFT, RR EVEN, UNLABORED.
[2025-02-14 04:02] VITALS: BP 97/77
[2025-02-14 07:18] VITALS: BP 116/74
--- NOTE | 2025-02-14 10:00 | NUR ---
NOTES? PT HAS BEEN WRITING "LOVE NOTES" AND ANKING STAFF TO PASS THEM TO ANOTHER PT. DIE INSPECTOR TOOK THE NOTES SHE HAD WRITTEN AND ASKED THIS RN PRIOR TO GIVING THEM TO THE OTHER PATIENT. THE PT HAS BECOME VERY HYPER FOCUSED ON PASSING NOTES TO HER "LOVER." THIS RN INSTRUCTED STAFF TO NOT PASS THE NOTES TO OTHER PATIENTS THIS PT IS HAVING SOME DELUSIONS. ATTEMPTING TO REDIRECT THE PT.
[2025-02-14 16:13] VITALS: BP 143/82
--- NOTE | 2025-02-14 16:41 | NUR ---
SHIFT SUMMARY- PT ASKED THIS AFTERNOON FOR MEDS TO HELP WITH HER ANXIETY AND WAS PROVIDED PER EMAR. PT IN BED CALL LIGHT IN REACH NO S&S OF DISTRESS NOTED. SHE HAS BEEN WRITING "LOVE NOTES TO ERNIE" STAFF HAVE PLACED THEM IN THE CUBBORD, THERE IS A LOT OF FLIGHT OF IDEAS IN THE NOTES. SHE DOES NOT APPEAR TO BE UPSET AT THIS TIME. WILL PASS ON TO NIGHT RN. BATHROOM DOOR IS TO REMAIN LOCKED TO PROTECT THE FACILITY PLUMBING WELL THE PT. PT TENDS TO FLUSH WADS OF THINGS DOWN THE TOILET WHEN SHE IS LEFT ALONE. THIS RN TOLD HER NOT TO FLUSH AT ALL AND ALLOW THE STAFF TO FLUSH TO PREVENT HER FROM FLUSHING REPEATEDLY SHE CAN BECOME HYPERFIXATED ON THE IDEA SHE NEEDS TO FLUSH. WILL PASS ON IN REPORT TO NIGHT RN.
[2025-02-14 20:31] VITALS: BP 136/74
--- NOTE | 2025-02-15 05:39 | NUR ---
PT A&O X1, DELUSIONAL MOST OF SHIFT PT BELIEVES PT ACROSS WHITTEN IS HER AND THIS IS NOT FACT. VS WNL, PO INTAKE ABOVE AVERAGE. DENIES PAIN. INDEPENDENT WITH SUPPERVISION FOR ADL'S AND MOBILITY. USES CALL SYSTEM APPROPRIATELY. AWAITING GUARDIANSHIP SO THAT MEDICAID CAN BE APPROVED FOR LTC PLACEMENT.
[2025-02-15 05:43] VITALS: BP 111/60
[2025-02-15 07:10] VITALS: BP 112/69
[2025-02-15 16:27] VITALS: BP 145/89
--- NOTE | 2025-02-15 16:46 | NUR ---
SHIFT SUMMARY- PT HAS HAD NO ACUTE CHANGE TODAY. SHE IS STILL SENDING NOTES, SOME INAPPROPRIATE AND SUGESTIVE NOTES, OTHERS SEEM TO BE A FLIGHT OF IDEAS. SHE HAS BEEN COMPLIANT WITH ALL CARE. PT IN BED, CALL LIGHT IN REAC H NO S&S OF DISTRESS NOTED.
[2025-02-15 20:25] VITALS: BP 137/77
[2025-02-16 04:52] VITALS: BP 115/78
--- NOTE | 2025-02-16 05:14 | NUR ---
PT A&O X1, REMAINS IN DELUSIONAL STATE, SLEPT WELL, UP TO BR WITH ASSIST, VS WNL, GOOD PO INTAKE. NO CHANGES THUS FAR. AWAITING GUARDIANSHIP AND MEDICAID APPROVAL FOR LTC.
[2025-02-16 07:20] VITALS: BP 127/65
[2025-02-16 15:12] VITALS: BP 152/90
--- NOTE | 2025-02-16 17:53 | NUR ---
SHIFT SUMMARY- PT ALERT AND ORIENTED TO SELF AND INDEPDENT IN THE ROOM. SHE HAS A YEAST RASH UNDER HER BREASTS THAT IS GETTING WORSE OVER THE LAST TWO DAYS, HOWEVER THE PT ROOM WAS CLEARED OF RAGS AND TOWELS AT THE END OF THIS RN'S SHIFT AND AT THE START OF SHIFT TODAY THERE WERE 4 SEPARATE WET WASHCLOTHS STREWN ABOUT THE ROOM. THE PT STATES SHE HAS BEEN TRYING TO KEEP IT CLEAN. SHE MAY BE WASHING THE MEDICINE OFF AND LEAVING THE AREA MOIST (NO DRY RAG WAS PRESENT) THEREBY MAKING THE YEAST WORSE. MD AWARE AND ORAL MEDS ARE ORDERED TO START TOMORROW. THE PT IS OBSESSIVE AND DELUSIONAL. SHE BELIEVES THE PT ACROSS THE WHITTEN IS HER NEW AND IS PLANNING THE NAMES OF THEIR CHILDREN TOGETHER. SHE HAS BEEN WRITING NOTES TO HIM T/O THE SHIFT. THIS IS ALL HER DELUSION. OFTEN HER NOTES ARE FLIGHT OF IDEAS ABOUT TRAVEL AND LIFE GOALS.
[2025-02-16 19:44] VITALS: BP 147/79
[2025-02-17 02:11] VITALS: BP 116/64
[2025-02-17 07:13] VITALS: BP 117/64
[2025-02-17 16:01] VITALS: BP 137/80
--- NOTE | 2025-02-17 16:47 | NUR ---
SHIFT SUMMARY: PATIENT HAS HAD NO NEW CHANGES THIS SHIFT. PATIENT A/OX1, PLEASANT, COOPERATIVE c STAFF, USES CALL LIGHT AND ABLE TO MAKE NEEDS KNOWN. PATIENT HAS GREAT APPETITE, CONTINENT OF BLADDER AND USES BATHROOM c SBA. PATIENT RECEIVED SCHEDULED MEDS PER EMAR. VITAL SIGNS REVIEWED. PATIENT AWAITING GUARDIANSHIP AND MEDICAID APPROVAL FOR LTC SAFE PLACEMENT. CALL LIGHT IN REACH.
[2025-02-18 04:00] VITALS: BP 117/61
--- NOTE | 2025-02-18 04:50 | NUR ---
SUMMARY: PT A/O TO SELF AND SURROUNDINGS BUT IS CONFUSED TO SITUATION AND CONT'S TO HAVE DELUSIONS AT TIMES. SHE BEGAN SHIFT ANXIOUS AND TEARFUL RE: FALSE BELIEF THAT HER WAS A PT IN ANOTHER ROOM BUT WAS DISCHARGED W/O HER. SHE C/O ANXIETY AND DIFFICULTY SLEEPING RESULT AND AN ADDITIONAL DOSE OF PRN SEROQUEL WAS RECEIVED FOR GOOD EFFECT. PT IS UP AD SEB IN ROOM BUT IS SUPERVISED IN RESTROOM D/T PRIOR ATTEMPTS AT FLUSHING ITEMS DOWN THE TOILET. REDNESS PERSISTS TO BREASTS, GROIN AND SKIN FOLDS W/MEDICATED POWDER APPLIED PER EMAR. SHE ALSO RECEIVED PRN ATIVAN FOR INTERMITTENT ANXIETY AND TYLENOL FOR TOLERABLE RELIEF OF TAILBONE PAIN. NO ACUTE CHANGES, VSS/AFEBRILE. WILL REPORT TO DAY RN.
[2025-02-18 07:23] VITALS: BP 114/68
--- NOTE | 2025-02-18 13:57 | NUR ---
"Spiritual Care | Staff Request pt. is awake in bed and welcomes my visit. Pt. is pleasant, but as the visit progresses the Pt. displayed some evidence of delusion. Pt. verbalized that she had planned to the Pt. from across the roa who had been discharged. Lsitened with a calming preseance and prayed with the Pt. some further pastoral care was employed. Pt. verbalized gratitude for tte spiritual care visit."
[2025-02-18 15:49] VITALS: BP 141/66
--- NOTE | 2025-02-18 17:52 | NUR ---
SHIFT SUMMARY PATIENT A/OX2-3, ABLE TO MAKE NEEDS KNOWN. DELUSIONAL, BELIEVES NEIGHBORING HOSPITAL ROOMS HOUSE HER SPOUSE. HAS BEEN PLEASANT AND COOPERATIVE WITH CARE. AWAITING PLACEMENT, NO OTHER CONCERNS THIS SHIFT. MEDICALLY STABLE, NO PRN MEDICATIONS ADMINISTERED TODAY.
[2025-02-18 19:15] VITALS: BP 126/67
[2025-02-19 03:31] VITALS: BP 111/62
--- NOTE | 2025-02-19 06:10 | NUR ---
SUMMARY: PT A/O TO SELF, PLACE AND DATE/TIME BUT LACKS SITUATIONAL AWARENESS AND INSIGHT AT TIMES. SHE'S UP AD SEB IN ROOM W/BATHROOM ASSIST PROVIDED D/T PT PREVIOUSLY FLUSHING ITEMS AND WASHING FEET IN TOILET. PT BECOMES ANXIOUS W/DIFFICULTY SLEEPING AT TIMES. PRN ATIVAN AND SEROQUEL PROVIDED FOR GOOD AFFECT. SHE ALSO WAS GIVEN TYLENOL FOR TOLERABLE RELIEF OF TAILBONE AND BLE PAIN. MEDICATED POWDER APPLIED TO REDDENED BREAST FOLDS BUT RASH APPEARS TO BE IMPROVING. NO ACUTE CHANGES, VSS/AFEBRILE. PLACEMENT PENDING. WILL REPORT TO DAY RN.
[2025-02-19 07:28] VITALS: BP 118/67
[2025-02-19 09:11] LABS: Alanine Aminotransfer (ALT/SGP 27.0 U/L (12-78); Albumin, Blood 3.0 g/dL (3.4-5.0); Albumin/Globulin Ratio 0.8 (0.8-1.8); Anion Gap 5.0 mmol/L (3-11); Aspartate Aminotrans (AST/SGOT 11.0 U/L (12-37); Bilirubin, Total 0.2 mg/dL (0.1-1.0); Blood Urea Nitrogen 22.0 mg/dL (8-24); CO2, Blood 29.0 mmol/L (21-32); Calcium, Blood 8.7 mg/dL (8.5-10.1); Chloride, Blood 107.0 mmol/L (98-108); Creatinine, Blood 0.76 mg/dL (0.40-1.00); Globulin, Blood 3.8 g/dL (2.2-4.0); Glucose, Blood 170.0 mg/dL (70-99); Potassium, Blood 3.8 mmol/L (3.5-5.5); Sodium, Blood 137.0 mmol/L (136-145); Total Protein, Blood 6.8 g/dL (6.4-8.2)
--- NOTE | 2025-02-19 14:33 | NUR ---
Pt. is awake in bed whenshe welcones my visit. Facilitate an update, and Pt. displays some of the same kind of confusion as she did yesterday regarding her relationship connections with a former Pt. Listen with patience and a calm presence. Pt. vverbalized interest in the bible. Prayed with the Pt. and will provide her with a full OT/NT NKJV version.
[2025-02-19 15:43] VITALS: BP 148/81
--- NOTE | 2025-02-19 17:32 | NUR ---
SHIFT SUMMARY PATIENT A/OX3, PLEASANT AND COOPERATIVE WITH CARE. DELUSIONAL AT TIMES, CONTINUES TO BELIEVE NEIGHBORING ROOMS HOUSE HER SPOUSE AND THAT HE IS IN PROTECTION AND STAFF MEMBERS HAVE CHANGED HIS NAME . PATIENT WAS ABLE TO SHOWER TODAY, MEDICATED POWDER APPLIED TO RASH UNDER BREASTS, PANNUS, AND GROIN. MEDICALLY STABLE, PENDING PLACEMENT. NO OTHER CONCERNS AT THIS TIME, WILL CONTINUE TO MONITOR.
[2025-02-19 19:21] VITALS: BP 138/80
[2025-02-20 04:16] VITALS: BP 124/69
--- NOTE | 2025-02-20 05:09 | NUR ---
SHIFT SUMMARY PT ALERT ORIENTED BUT DELUSIONAL AT TIMES. HAS BEEN SLEEPING MOST OF THE NIGHT. SHES ON A INVOLUNTARY HOLD FOR DEMENTIA WITH PSYCHOTIC FEATURES. SHES AWAITING [employer] AND [employer] PLACEMENT. TAKES ALL PO MEDS WHOLE WITH NO PROBLEMS. VSS ON RA. GETS UP IN ROOM AD SEB AND AMBULATES TO THE BATHROOM. SHE HAS YEAST UNDER HER BREASTS AND PANNUS CONTINUES ON HER POWDER ORDERED. NO C/O PAIN THIS SHIFT. RESTING IN BED AT THIS TIME WITH CALL LIGHT IN REACH
[2025-02-20 07:21] VITALS: BP 140/72
--- NOTE | 2025-02-20 15:26 | NUR ---
no changes for pt. prn anxiety meds given today. pt has no c/o pain, sob.
[2025-02-20 16:12] VITALS: BP 130/78
[2025-02-20 19:07] VITALS: BP 165/85
[2025-02-21 02:13] VITALS: BP 135/90
--- NOTE | 2025-02-21 04:38 | NUR ---
SHIFT SUMMARY PT ALERT ORIENTED ABLE TO VERBALIZE NEEDS GETS UP AND AMBULATED IN ROOM AD SEB. NO C/O PAIN. REMAINS ON A INVOLUNTARY HOLD. SHES PENDING PLACEMENT AND GUARDIANSHIP SVSS ON RA SATTOMH AT 90%. REMAINS WITH DESENEX TO UNDER BREAST AND PANNUS AREAS. RESTING IN BED AT THIS TIME WITH CALL LIGHT IN REACH
[2025-02-21 07:13] VITALS: BP 105/58
[2025-02-21 17:03] VITALS: BP 140/64
--- NOTE | 2025-02-21 17:17 | NUR ---
NO CHANGES IN PT STATUS
[2025-02-21 19:44] VITALS: BP 125/56
[2025-02-22 03:28] VITALS: BP 111/50
[2025-02-22 03:32] VITALS: BP 115/59
--- NOTE | 2025-02-22 04:09 | NUR ---
SHIFT SUMMARY PT ALERT ORIENTED ABLE TO VERBALIZE NEEDS GETS UP AND AMBULATES IN ROOM AD SEB TO THE BATHROOM. REMAINS WITH REDNESS UNDER BILAT BREASTS AND ABD FOLDS POWDER WAS APPLIED TO AREAS. SHES AWAITING PLACEMENT AND IS ON A INVOLUNTARY HOLD. NO C/O ABD PAIN VOIDING WELL. RESTING IN BED WITH CALL LIGHT IN REACH
[2025-02-22 07:05] VITALS: BP 114/59
--- NOTE | 2025-02-22 17:48 | NUR ---
SHIFT SUMMARY: A&OX4 THIS SHIFT. PLEASANT AND COOPERATIVE WITH CARE PROVIDED. NO ACUTE EVENTS THROUGHOUT SHIFT. UP IN ROOM INDEPENDENTLY. LYING IN BED AT THIS TIME. CALL LT WITHIN REACH. DENIES SHORTNESS OF BREATH, CHEST PAIN, AND/OR DISCOMFORT.
[2025-02-22 19:47] VITALS: BP 133/82
[2025-02-23 03:46] VITALS: BP 108/66
--- NOTE | 2025-02-23 06:18 | NUR ---
NO ACUTE CHANGES, WAKES STARTLED, MEDICATED WITH PRN TYLENOL, ATIVAN, AND SEROQUEL. PATIENT REPORTS SHE HAS RLS, SNORING LOUDLY NOW, PATIENT BECAME FORGETFUL BUT EASY TO REDIRECT AND ORIENT, PLEASANT TO CARE, WAITING FOR PLACEMENT, CALL LIGHT WITH IN REACH
[2025-02-23 07:05] VITALS: BP 123/72
[2025-02-23 15:13] VITALS: BP 146/75
--- NOTE | 2025-02-23 18:31 | NUR ---
SHIFT SUMMARY: A&OX4 THIS SHIFT. PLESANT AND COOPERATIVE WITH CARE PROVIDED. AMBULATES INDEPENDENTLY IN ROOM. NO ACUTE EVENTS. LYING IN BED. BED IN THE LOWEST POSITION. CALL LT NEAR.
[2025-02-23 19:31] VITALS: BP 134/78
[2025-02-24 03:52] VITALS: BP 119/72
--- NOTE | 2025-02-24 04:25 | NUR ---
SHIFT SUMMARY PATIENT ALERT AND ORIENTED, AMBULATING IND IN THE ROOM. VITAL SIGNS STABLE, NO PAIN REPORTED. VOIDING WELL. RESTING IN BED. NO ACUTE CHANGES THROUGHOUT SHIFT. WILL CONTINUE TO MONITOR AND REPORT TO ONCOMING RN.
[2025-02-24 07:28] VITALS: BP 120/63
[2025-02-24 15:48] VITALS: BP 139/75
--- NOTE | 2025-02-24 17:18 | NUR ---
SUMMARY- PT A/O X4, CALM AND COOPERATIVE. USES CALL LIGHT APPROPRIATELY. TOLERATING FOOD AND FLUID. AMBULATES STEADY ON HER FEET IN HER ROOM. PT HAD A SHOWER TODAY AND APPLIED MICONOZOLE TO YEASTY RASH UNDER R BREAST FOLD AND SCANT UNDER L BREAST. AWAITING GUARDIANSHIP AND PLACEMENT. WILL REPORT TO MER HERNANDEZ.
[2025-02-24 19:11] VITALS: BP 136/76
[2025-02-25 02:41] VITALS: BP 111/68
--- NOTE | 2025-02-25 06:34 | NUR ---
SHIFT SUMMARY PATIENT A/O X4- IND IN THE ROOM. NO ACUTE CHANGES THROUGHOUT SHIFT. VITAL SIGNS REMAINED STABLE. EATING WELL AND GETTING ADEQUATE HYDRATION. REPORTS VOIDING WELL AND HAVING NORMAL BOWEL MOVEMENTS. NO PAIN REPORTED. WILL CONTINUE TO MONITOR AND REPORT TO ONCOMING RN.
[2025-02-25 07:57] VITALS: BP 120/73
[2025-02-25 16:00] VITALS: BP 124/69
--- NOTE | 2025-02-25 18:39 | NUR ---
SUMMARY- PT A/O X4, SLEEPY TODAY, NAPPED MOST OF THE DAY. GETS UP INDEPENDANTLY TO BATHROOM. COMPLAINED OF FLANK PAIN, SIMILAR TO PREVIOUS UTI S/S, URINE IS CLOUDY. CALLED DR PACE, ORDER FOR UA WITH CX IF INDICATED. RESULTS PENDING. PT'S VSS. TOLERATING FOOD AND FLUID. HAD BM 02/23. AWAITING PLACEMENT. WILL REPORT TO NOC RN
[2025-02-25 20:46] VITALS: BP 117/66
[2025-02-26 04:59] VITALS: BP 109/62
--- NOTE | 2025-02-26 05:21 | NUR ---
SHIFT SUMMARY PATIENT A/O X4, PLEASANT AND COOPERATIVE WITH CARE. SLEPT WELL THROUGHOUT THE NIGHT. VITAL SIGNS STABLE. IND IN THE ROOM. NO ACUTE CHANGES THROUGHOUT SHIFT.WILL CONTINUE TO MONITOR AND REPORT TO ONCOMING RN.
[2025-02-26 07:13] VITALS: BP 122/67
[2025-02-26 15:00] VITALS: BP 127/70
--- NOTE | 2025-02-26 18:49 | NUR ---
NO ACUTE CHANGES THIS SHIFT. PATIENT IS A/OX4 AND INDEPENDENT IN ROOM. VSS, ON RA. LIDOCAINE PATCH IN PLACE TO LOW BACK FOR CHRONIC PAIN. PATIENT ABLE TO MAKE NEEDS KNOWN. AWAITING GUARDIANSHIP AND PLACEMENT.
[2025-02-26 19:25] VITALS: BP 117/67
--- NOTE | 2025-02-27 03:43 | NUR ---
SHIFT SUMMARY PT A&Ox4 AND PLEASANT. NO ACUTE CHANGES. MEDICATED FOR LOWER BACK PAIN PER EMAR. IND IN ROOM. CALLS APPROPRIATLY. VSS. BED IN LOWEST POSITION AND CALL LIGHT IN REACH.
[2025-02-27 06:10] VITALS: BP 106/52
[2025-02-27 07:48] VITALS: BP 106/55
[2025-02-27 15:33] VITALS: BP 133/69
--- NOTE | 2025-02-27 18:16 | NUR ---
PATIENT A/OX4, PLEASANT AND COOPERATIVE FOR CARE. ATIVAN GIVEN X1 TODAY FOR ANXIETY WITH STATED RELIEF. PATIENT IS INDEPENDENT IN ROOM AND ABLE TO MAKE NEEDS KNOWN. AWAITING GUARDIANSHIP AND PLACMENT.
[2025-02-27 19:56] VITALS: BP 133/71
--- NOTE | 2025-02-28 05:02 | NUR ---
SHIFT SUMMARY PT A&Ox4 AND PLEASANT AND COOPERATIVE OF CARE. AROUND 0300, PT C/O R FLANK PAIN, TYLENOL GIVEN AND PT ABLE TO FALL BACK TO SLEEP. IND IN ROOM. VSS. NO ACUTE CHANGES. BED IN LOWEST POSITION AND CALL LIGHT IN REACH.
[2025-02-28 05:37] VITALS: BP 112/60
[2025-02-28 07:26] VITALS: BP 114/56
[2025-02-28 16:10] VITALS: BP 125/79
--- NOTE | 2025-02-28 18:31 | NUR ---
SUMMARY- AAOX4. PT ANSWERED ALL ORIENTATION QUESTIONS CORRECTLY. PT COMPLAINED OF R FLANK PAIN AND PT REQUESTED ANXIETY MEDS TO HELP; PT VERBALIZED ANTI ANXIETY MEDS HELPED. PT SBA IN ROOM. PT ON RA. GOOD APPETITE. CALM AND COOPERATIVE THIS SHIFT. NO ACUTE EVENTS THIS SHIFT.
[2025-02-28 19:26] VITALS: BP 109/61
[2025-02-28 22:21] VITALS: BP 97/62
[2025-03-01 04:49] VITALS: BP 102/52
--- NOTE | 2025-03-01 05:23 | NUR ---
INTELLIGENCE CONSULTANT SUMMARY PT HAS BEEN A/OX4. PLEASANT/COOPERATIVE. CALM. NO ACUTE EVENTS. PT CALLING APPROPIRATELY. REPORTING ANXIETY AT THE START OF SHIFTS. MEDS PER SEP. CALL LIGHT ACCESSIBLE. REGULAR INTERVAL ROUNDING AT LEAST Q2 HOURSE THROUGHOUT THE NIGHT. CARE WILL CONTINUE UNTIL REPORT GIVEN TO ONCOMING NURSE.
[2025-03-01 07:15] VITALS: BP 109/55
[2025-03-01] MEDS ORDERED: Ondansetron 4 MG SoluTab SL PRN (09:30)
[2025-03-01 12:07] LABS: BASOPHILS ABSOLUTE AUTO 0.03 K/mm3 (0.00-0.23); BASOPHILS PERCENT AUTO 0 % (0-2); EOSINOPHILS ABSOLUTE AUTO 0.26 K/mm3 (0.00-0.68); EOSINOPHILS PERCENT AUTO 3 % (0-6); Hematocrit 40.1 % (33.0-51.0); Hemoglobin 12.8 g/dL (11.5-16.0); IMMATURE GRAN ABSOLUTE AUTO 0.08 K/mm3 (0.00-0.10); IMMATURE GRAN PERCENT AUTO 1 % (0-1); LYMPHOCYTES ABSOLUTE AUTO 2.01 K/mm3 (0.84-5.20); LYMPHOCYTES PERCENT AUTO 24 % (21-46); MONOCYTES ABSOLUTE AUTO 0.65 K/mm3 (0.16-1.47); MONOCYTES PERCENT AUTO 8 % (4-13); Mean Corpuscular HGB Conc 31.9 g/dL (31.5-36.5); Mean Corpuscular Volume 88 fL (80-100); NEUTROPHILS ABSOLUTE AUTO 5.51 K/mm3 (1.96-9.15); NEUTROPHILS PERCENT AUTO 65 % (41-73); NRBC ABSOLUTE 0.00 K/mm3 (0.00-0.02); NRBC Auto 0.0 /100 WBC (0.0-0.2); Platelet Count 259 K/mm3 (150-400); RDW Coefficient Variation 15.1 % (11.7-14.2); RDW Standard Deviation 48.5 fL (35.1-46.3)
[2025-03-01 12:30] LABS: Magnesium, Blood 1.9 mg/dL (1.6-2.4)
[2025-03-01 12:31] LABS: Alanine Aminotransfer (ALT/SGP 39.0 U/L (12-78); Albumin, Blood 3.1 g/dL (3.4-5.0); Albumin/Globulin Ratio 0.7 (0.8-1.8); Anion Gap 7.0 mmol/L (3-11); Aspartate Aminotrans (AST/SGOT 38.0 U/L (12-37); Bilirubin, Total 0.3 mg/dL (0.1-1.0); Blood Urea Nitrogen 21.0 mg/dL (8-24); CO2, Blood 31.0 mmol/L (21-32); Calcium, Blood 8.9 mg/dL (8.5-10.1); Chloride, Blood 104.0 mmol/L (98-108); Creatinine, Blood 0.67 mg/dL (0.40-1.00); Globulin, Blood 4.4 g/dL (2.2-4.0); Glucose, Blood 147.0 mg/dL (70-99); Phosphorus, Blood 4.1 mg/dL (2.5-4.9); Potassium, Blood 4.5 mmol/L (3.5-5.5); Sodium, Blood 137.0 mmol/L (136-145); Total Protein, Blood 7.5 g/dL (6.4-8.2)
[2025-03-01 15:39] VITALS: BP 123/66
--- NOTE | 2025-03-01 18:30 | NUR ---
DAY SUMMARY A&OX4, VSS, PT NOT FEELING WELL THIS SHIFT, VOMITED AFTER BREAKFAST (300MLS), PO ZOFRAN & MD PHENERGAN ADMIN, PT STILL REPORTS "FEELING UNDER THE WEATHER" REFUSED DINNER BUT HAS TOLERATED SNACKS AND FLUIDS FROM THE PANTRY, VSS, DENIES ANY OTHER SX, BEDRESTING, WILL CONT TO MONITOR.
[2025-03-01 19:22] VITALS: BP 120/65
--- NOTE | 2025-03-02 06:00 | NUR ---
SUMMERY NOC SHIFT PT ADMITTED FOR UTI. PT IS ALERT AND ORIENTED TIMES 4. PT HAS NO IV ACCESS ORDER. PT TAKES MEDICATION WHOLE WITH WATER. PT IS INDEPENDENT TO TOILET. PT IS COOPERATIVE WITH CARE AND CALL LIGHT APPROPRIATE. BED IS IN LOW POSITION, RAILS TIMES TWO, AND CALL LIGHT IS WITHIN REACH.
[2025-03-02 06:05] VITALS: BP 102/56
[2025-03-02 07:27] VITALS: BP 108/58
[2025-03-02 15:41] VITALS: BP 129/63
--- NOTE | 2025-03-02 16:08 | NUR ---
DAY SUMMARY A&OX4, INDEP IN ROOM, SLEPT INTERMITTENTLY T/O SHIFT, MEDICATED 1X FOR C/O EDEN & 1X FOR ANXIETY, BEDRESTING WATCHING TV AT THIS TIME, CALL LIGHT IN REACH, WILL CONT TO MONITOR
[2025-03-02 20:12] VITALS: BP 126/65
--- NOTE | 2025-03-03 03:27 | NUR ---
SHIFT SUMMARY: PT IS AOX4, WITH SOME MILD ANXIETY. MEDICATED THIS EVENING PER eMAR. PT DENIED PAIN THIS SHIFT. PT AMBULATES INDEPENDENTLY. WHILE ASLEEP, PT SpO2 WAS 87-88% ON RA. RT PLACED PT ON 2L O2 TO MAINTAIN SpO2 OF 92%. CALL LIGHT IS WITHIN REACH. BED IS LOW AND LOCKED.
[2025-03-03 05:16] VITALS: BP 98/54
[2025-03-03 07:09] VITALS: BP 103/57
[2025-03-03 16:15] VITALS: BP 118/64
[2025-03-03 19:16] VITALS: BP 116/68
[2025-03-04 02:53] VITALS: BP 98/58
--- NOTE | 2025-03-04 05:29 | NUR ---
SHIFT SUMMARY PATIENT A/O X4 AND IND IN THE ROOM. VITAL SIGNS STABLE. MEDICATED PER EMAR. NO ACUTE CHANGES THROUGHOUT SHIFT AND NO PAIN REPORTED. ANXIETY MANAGED WITH MEDICATION PER EMAR. WILL CONTINUE TO MONITOR AND REPORT TO ONCOMING RN.
[2025-03-04 07:30] VITALS: BP 119/73
[2025-03-04 15:59] VITALS: BP 121/76
--- NOTE | 2025-03-04 18:14 | NUR ---
SHIFT SUMMARY CLIENT AOX3-4 AND EXPERIENCES OCCASSIONAL DELUSIONS. MEDICATION COMPLAINT. C/O GENERALIZED PAIN AND AXIETY X 1 EACH. MEDICATED PER EMAR. CLIENT HAS CHOSE TO REMAIN IN BED MOST OF THE SHIFT. BED IS IN LOW POSITION AND CALL LIGHT IS WITHIN REACH
[2025-03-04 19:34] VITALS: BP 121/67
--- NOTE | 2025-03-05 05:58 | NUR ---
SHIFT SUMMARY PATIENT A/O X3-4 THROUGHOUT SHIFT. SLEPT MOST OF THE NIGHT. NO REPORT OF PAIN. VITAL SIGNS REMAINED STABLE. IND IN THE ROOM. VOIDING AND PASSING STOOL. BI ACUTE CHANGES. WILL CONTINUE TO MONITOR AND REPORT TO ONCOMING RN.
[2025-03-05 07:06] VITALS: BP 114/63
[2025-03-05 16:06] VITALS: BP 105/63
--- NOTE | 2025-03-05 16:30 | NUR ---
Una (pt) is awake and alert and welcomes my visit. Pt has had an extensive stay and has some difficulty speaking because of COPD and exhaustion. Pt has a strong mormon foundation and believes all that happens is meant to. Pt has some uncertainty about where they will live following discharge but remains positive and has a support system in place. Normalized pt experience and provided prayer and encouragement. Pt is uplifted following visit : "I appreciate these kinds of visits"
[2025-03-05 19:28] VITALS: BP 117/65
--- NOTE | 2025-03-06 02:45 | NUR ---
SHIFT SUMMARY NO ACUTE EVENTS DURING THIS SHIFT. O2 @2L VIA NASAL CANNULA, PULSE OX>91%. AT HS PT DENIES SOB, PAIN AND DISCOMFORT. COOPERATIVE WITH CARE AND ABLE TO MAKE HER NEEDS KNOWN. BED AT THE LOWEST POSITION, CALL LIGHT W/I REACH.
[2025-03-06 04:38] VITALS: BP 126/61
[2025-03-06 05:29] LABS: Hematocrit 40.4 % (33.0-51.0); Hemoglobin 12.7 g/dL (11.5-16.0); Mean Corpuscular HGB Conc 31.4 g/dL (31.5-36.5); Mean Corpuscular Volume 90 fL (80-100); NRBC ABSOLUTE 0.00 K/mm3 (0.00-0.02); NRBC Auto 0.0 /100 WBC (0.0-0.2); Platelet Count 272 K/mm3 (150-400); RDW Coefficient Variation 15.1 % (11.7-14.2); RDW Standard Deviation 50.1 fL (35.1-46.3)
[2025-03-06 06:16] LABS: Albumin, Blood 3.0 g/dL (3.4-5.0); Anion Gap 7 mmol/L (3-11); Blood Urea Nitrogen 21 mg/dL (8-24); CO2, Blood 31 mmol/L (21-32); Calcium, Blood 8.5 mg/dL (8.5-10.1); Chloride, Blood 103 mmol/L (98-108); Creatinine, Blood 0.86 mg/dL (0.40-1.00); Glucose, Blood 123 mg/dL (70-99); Magnesium, Blood 2.0 mg/dL (1.6-2.4); Phosphorus, Blood 4.3 mg/dL (2.5-4.9); Potassium, Blood 3.9 mmol/L (3.5-5.5); Sodium, Blood 137 mmol/L (136-145)
[2025-03-06 07:23] VITALS: BP 115/69
[2025-03-06 15:13] VITALS: BP 116/73
--- NOTE | 2025-03-06 18:42 | NUR ---
SHIFT SUMMARY PATIENT A/OX3-4 ABLE TO MAKE NEEDS KNOWN. PLEASANT AND COOPERATIVE WITH CARE. PATIENT ON 2 LPM OXYGEN VIA NASAL CANNULA, CONTINUOUS PULSE OX IN PLACE. PATIENT'S SISTER AT BEDSIDE THIS EVENING. PATIENT PENDING PLACEMENT AND GUARDIANSHIP. NO OTHER CONCERNS AT THIS TIME.
[2025-03-06 19:41] VITALS: BP 109/51
--- NOTE | 2025-03-07 02:54 | NUR ---
SHIFT SUMMARY NO ACUTE EVENTS DURING THIS SHIFT. O2 @2L VIA NASAL CANNULA, O2 SAT'S>93%. CON TINUING PT EDUCATION R/T IS. PT RESTING WELL T/O THE NIGHT. AT HS PT C/O LLQ PAIN AND ANXIETY. MEDICATED PER EMAR. PT IS A/O X3, ABLE TO MAKE HER NEEDS KNOWN AND COOPERATIVE WITH CARE. BED AT THE LOWEST POSITION, CALL LIGHT W/I REACH.
[2025-03-07 05:17] VITALS: BP 115/56
[2025-03-07 07:39] VITALS: BP 119/66
--- NOTE | 2025-03-07 13:24 | NUR ---
Spiritual Care Visit conducted. Una (pt) is awake and sitting upright in bed. Pt welcomes my visit but is having difficulty speaking and would like to eat and then rest. Pt displays evidence of trust and candor. Facilitated a brief update- pt's close friend and support system has decided not to move which the pt feels positive about. Prayed with pt and she expressed gratitude for the prayer and visit.
[2025-03-07 15:39] VITALS: BP 131/74
--- NOTE | 2025-03-07 17:52 | NUR ---
PT PLEASANT TODAY. AMBULATING INDEPENDANTLY. SOME ANXIETY, TREATED THIS AM. NO C/O PAIN FOR ME TODAAY. PENDING GUARDIANSHIP. DR CHANGED ABX SOME TODAY. NO OTHER CONCERNS NOTED. BED IN LOW POSITION, CALL LITE IN REACH, CALLS APPROP
[2025-03-07 19:48] VITALS: BP 119/72
[2025-03-07] MEDS ORDERED: Lactobacil 2-S.Thermo-Bifido 1 1 Cap PO SCH (21:00)
[2025-03-07] MEDS ORDERED: Nitrofurantoin/Nitrofuran Mac 100 MG Cap PO SCH (21:00)
--- NOTE | 2025-03-08 03:39 | NUR ---
SHIFT SUMMARY NO ACUTE EVENTS DURING THIS SHIFT. O2 @2L @HS VIA NASAL CANNULA. CONT.PULSE OX IN PLACE. DURING THE NIGHT PT MOUTH BREATHING AND REQUIRING ADDITIONAL O2 UP TO 5L TO KEEP UP SAT'S IN LOW 90'S. AT HS, CONTINUING PT EDUCATION R/T INCENTIVE SPIROMETER AND DEEP BREATHING TECHIQUES. AT HS PT C/O H/A, PRN TYLENOL ADMINISTERED ORDERED. PT REPORTS EFFECTIVE. BED AT THE LOWEST POSITION, CALL LIGHT W/I REACH. PT IS A/O X3-4, ABLE TO MAKE HER NEEDS KNOWN AND COOPERATIVE WITH CARE.
[2025-03-08 04:49] VITALS: BP 105/67
[2025-03-08 07:11] VITALS: BP 107/64
[2025-03-08 15:35] VITALS: BP 108/65
--- NOTE | 2025-03-08 17:13 | NUR ---
PT IS A/OX3-4. INDEPENDENT IN THE ROOM. NO ACUTE CHANGES THROUGHOUT THIS SHIFT. ON 2L NC, SATS >92%. PT SLEEPING FOR MUCH OF THIS SHIFT. PT IS PLEASANT AND COOPERATIVE WITH CARE AND CALLS APPROPRAITELY USING THE CALL LIGHT.
[2025-03-08 19:11] VITALS: BP 122/64
--- NOTE | 2025-03-09 03:10 | NUR ---
SHIFT SUMMARY NO ACUTE EVENTS DURING THIS SHIFT. O2 @2L VIA NASAL CANNULA, O2 SAT'S LOW 90'S. PT DENIES SOB. AT HS, PT C/O H/A. PRN TYLENOL ADMINISTERED ORDERED. BED AT THE LOWEST POSITION, CALL LIGHT W/I REACH. PT IS ABLE TO MAKE HER NEEDS KNOWN AND IS PLEASANT AND COOPERATIVE WITH CARE. VSS.
[2025-03-09 03:28] VITALS: BP 108/57
[2025-03-09 07:23] VITALS: BP 94/46
--- NOTE | 2025-03-09 19:27 | NUR ---
SHIFT SUMMARY PT IS A/OX3-4. INDEPENDENT IN THE ROOM. NO ACUTE CHANGES THROUGHOUT THIS SHIFT. PT SLEEPING FOR MUCH OF THE SHIFT. ON 2L NC PRN, SATS >92%. PT IS PLEASANT AND COOPERATIVE WITH CARE AND CALLS APPROPRIATELY USING THE CALL LIGHT.
[2025-03-09 19:50] VITALS: BP 122/63
[2025-03-10 03:54] VITALS: BP 100/62
--- NOTE | 2025-03-10 04:39 | NUR ---
SHIFT SUMMARY: PT AOX4 IND IN THE ROOM. FOLLOWING COMMANDS WELL AND TOLERATING MEDICATIONS. COOPERATIVE IN CARE AND PLEASANT. PT DENIES CP OR SOB. ABLE TO MAKE NEEDS KNOWN. SLEPT THROUGH MOST OF THE NIGHT. NO ACUTE OVERNIGHT EVENTS. PT IN BED RESTING, BED IN LOWEST POSITION ,CALL LIGHT IN REACH. CONTINUING CARE.
[2025-03-10 07:49] VITALS: BP 103/60
[2025-03-10 15:19] VITALS: BP 124/66
[2025-03-10 19:10] VITALS: BP 117/65
--- NOTE | 2025-03-10 19:52 | NUR ---
SHIFT SUMMARY: NO NEW OR ACUTE CHANGES DURING THIS SHIFT. PLAN FOR GAURDIANSHIP. PATIENT HAS NO NEEDS AT THIS TIME, WILL CONTINUE TO MONITOR.
[2025-03-11 03:30] VITALS: BP 96/46
--- NOTE | 2025-03-11 05:12 | NUR ---
SHIFT SUMMARY A&OX4. ABLE TO MAKE NEEDS KNOWN. DENIES PAIN. RESTED COMFORTABLY IN BED AT LOWEST POSITION WITH RAILS X2 AND CALL LIGHT WITHIN REACH.
[2025-03-11 07:49] VITALS: BP 103/67
[2025-03-11 15:12] VITALS: BP 117/59
[2025-03-11 19:33] VITALS: BP 120/54
[2025-03-12 04:44] VITALS: BP 128/68
--- NOTE | 2025-03-12 05:31 | NUR ---
SHIFT SUMMARY A&OX 4. ABLE TO MAKE ALL NEEDS KNOWN. DENIES PAIN. WAS ON 2 LPM O2 VIA NC. WHILE SLEEPING O2 SATS DROPPED TO 88%. O2 INCREASED TO 3.5 LPM AND HOB ELEVATED. O2 SATS INCREASED TO MID 90S. WILL CONTINUE TO MONITOR AND REPORT TO DAY SHIFT NURSE. BP MEDICATION HELD LAST NIGHT DUE TO TREND OF DECREASING BP READINGS IN AM AND BP WNL AT START OF SHIFT. WILL CONTINUE TO MONITOR VS. PT CURRENTLY SLEEPING IN BED AT LOWEST POSITION, RAILS X2 AND CALL LIGHT WITHIN REACH.
[2025-03-12 07:51] VITALS: BP 115/75
[2025-03-12 16:11] VITALS: BP 128/82
--- NOTE | 2025-03-12 17:54 | NUR ---
PATIENT INDEPENDENT WITH CARE DURING THIS SHIFT. MEDICATIONS GIVEN PER EMAR AND PATIENT REQUEST FOR ANXIETY MEDS POST PHONE APPOINTMENT. PATIENT HAS NO CONCERNS. BED IN LOW POSITION AND CALL LIGHT WITHIN REACH.
[2025-03-12 19:26] VITALS: BP 145/76
[2025-03-13 03:19] VITALS: BP 92/49
[2025-03-13 04:28] VITALS: BP 117/64
--- NOTE | 2025-03-13 04:58 | NUR ---
SHIFT SUMMARY NOC PT A/O X 2-3. CONFUSED, BUT PLEASANT AND COOPERATIVE WITH CARE. VSS. BEDTIME RX PER EMAR. NO ACUTE CHANGES TO REPORT. PT SLEPT MAJORITY OF SHIFT AFTER RECEIVING BEDTIME RX. PT HAS GUARDIANSHIP/LTCM PENDING. PT CURRENTLY RESTING WITH BED IN LOWEST POSITION, AND CALL LIGHT WITHIN REACH.
[2025-03-13 07:33] VITALS: BP 107/62
[2025-03-13 15:58] VITALS: BP 114/67
--- NOTE | 2025-03-13 17:57 | NUR ---
NO ACUTE CHANGES, PLEASANT TO CARE, MEDICATED FOR PAIN, WILL RELAY TO PM RN
[2025-03-13 19:34] VITALS: BP 133/67
[2025-03-14 03:32] VITALS: BP 95/56
--- NOTE | 2025-03-14 04:48 | NUR ---
SHIFT SUMMARY NOC PT A/O X 3. PLEASANT AND COOPERATIVE WITH CARE. VSS. BEDTIME RX PER EMAR. NO ACUTE CHANGES TO REPORT. PT SLEPT MAJORITY OF SHIFT AFTER RECEIVING BEDTIME RX. PT HAS GUARDIANSHIP/LTCM PENDING. PT CURRENTLY RESTING WITH BED IN LOWEST POSITION, AND CALL LIGHT WITHIN REACH.
[2025-03-14 07:24] VITALS: BP 109/65
[2025-03-14 15:26] VITALS: BP 117/75
--- NOTE | 2025-03-14 15:42 | NUR ---
ASSUMED CARE OF PT PT IS A/O X 4 VERY PLEASENT AND COOPERATIVE WITH CARE, CHRONIC C/O PAIN NO DISTRESS MAKES NEEDS KNOWN. PT HAS BEEN IN AND OUT OF SLEEP EASILY AWOKEN.
--- NOTE | 2025-03-14 19:03 | NUR ---
PT DID VERY WELL TODAY WAS APPROPRIATE WITH CARE AND COOPERATIVE. PT HAS BEEN INDEPENDANT IN ROOM AND HAS BEEN ABLE TO MAKE NEEDS KNOWN.
[2025-03-14 19:21] VITALS: BP 124/73
[2025-03-14 21:09] VITALS: BP 127/70
[2025-03-15 04:32] VITALS: BP 108/55
[2025-03-15 07:19] VITALS: BP 100/53
--- NOTE | 2025-03-15 11:20 | NUR ---
ASSUMED CARE A/O X 4 VERY PLEASENT AND COOPERATIVE WITH CARE. PT LAYING QUIETLY IN BED, CALL LIGHT WITHIN REACH, MAKES NEEDS KNOWN.
[2025-03-15 15:24] VITALS: BP 126/69
[2025-03-15 19:31] VITALS: BP 124/68
--- NOTE | 2025-03-16 03:56 | NUR ---
VS WNL, NO CHANGES. STILL AWAITING GUARDIANSHIP FOR MEDICAID APPLICATION. PT INDEPENDENT IN ROOM. USES CALL SYSTEM APPROPRIATELY
[2025-03-16 04:16] VITALS: BP 97/49
[2025-03-16 07:59] VITALS: BP 111/63
--- NOTE | 2025-03-16 14:47 | NUR ---
ASSUMED CARE A/O X 3 IN AND OUT OF SLEEP EASILY AROUSABLE. NO CHANGE IN CONDITION CALL LIGHT BY SIDE AND IS ABLE TO MAKE NEEDS KNOWN.
[2025-03-16 16:54] VITALS: BP 107/66
[2025-03-16 21:24] VITALS: BP 112/55
--- NOTE | 2025-03-17 04:28 | NUR ---
SHIFT SUMMARY: PT AOX4 IND IN THE ROOM. CALLS APPROPRIATELY AND ABLE TO MAKE NEEDS KNOWN. PT TOLERATING MEDICATIONS WELL. PT IN BED RESTING. NO ACUTE OVERNIGHT EVENTS. PT SLEEPING BED, BED IN LOWEST POSITION, CALL LIGHT IN REACH. CONTINUING CARE.
[2025-03-17 05:18] VITALS: BP 108/62
[2025-03-17 08:42] VITALS: BP 113/63
[2025-03-17 16:31] VITALS: BP 133/75
--- NOTE | 2025-03-17 18:51 | NUR ---
PT CONT LEVEL OF CARE WTIH NO ACUTE CHANGES NOTED THIS SHIFT. STILL AWAITING GAURDIANSHIP AND PLACEMENT.
[2025-03-17 19:36] VITALS: BP 122/64
[2025-03-18 02:43] VITALS: BP 114/61
--- NOTE | 2025-03-18 04:39 | NUR ---
SHIFT SUMMARY: PT AOX4 WITH SOME CONFUSION. PLEASANT AND COOPERATIVE IN CARE. CALLS APPROPRIATELY AND ABLE TO MAKE NEEDS KNOWN. SEEMS MUCH MORE SLEEPY AND STATES TO FEELING QUITE DOWN DUE TO EXTENDED HOSPITAL STAY. IS TOLERATING MEDICATIONS WELL. NO ACUTE OVERNIGHT EVENTS. PT IN BED SLEEPING, BED IN LOWEST POSITION, CALL LIGHT IN REACH. CONTINUING CARE.
[2025-03-18 07:48] VITALS: BP 119/66
--- NOTE | 2025-03-18 14:54 | NUR ---
Pt. is awake in bed and welcomes my visit. Pt. is pleasant. Facilitated an update as it has been two weeks since this manager care management has visited. Pt. verbalizes that she is still weak. Listen with empathy and a calming presence. Pt. displayes evidence of being encouraged. Prayed with Pt. Pt. verbalizes gratitude for the spiritual care visit.
[2025-03-18 15:12] VITALS: BP 120/97
--- NOTE | 2025-03-18 18:46 | NUR ---
SHIFT SUMMARY NO ACUTE CHANGES THIS SHIFT. PT REPORTS HIP PAIN AND WEAKNESS. REFUSED WALK IN HALLS D/T HIP PAIN. HEAT PAD IN PLACE, TYLENOL GIVEN X1. PT A&OX3, PLEASANT AND COOPERATIVE WITH CARE, IND IN ROOM.
[2025-03-18 19:03] VITALS: BP 109/60
[2025-03-19 03:46] VITALS: BP 92/49
--- NOTE | 2025-03-19 04:19 | NUR ---
SHIFT SUMMARY: PT AOX4 CALLS APPROPRIATELY AND ABLE TO MAKE NEEDS KNOWN. PT TOLERATING MEDICATIONS WELL. IND IN THE ROOM. NO ACUTE OVERNIGHT EVENTS. STATES TO FEEL "DOWN" AND COMPLAINTS OR HIP PAIN. PT IN BED RESTING, BED IN LOWEST POSITION, CALL LIGHT IN REACH. CONTIUNING CARE.
[2025-03-19 07:50] VITALS: BP 113/62
[2025-03-19 07:55] VITALS: BP 113/67
[2025-03-19 14:33] VITALS: BP 129/70
--- NOTE | 2025-03-19 18:00 | NUR ---
SUMMARY- PT A/O X4. INDEPENDANT IN ROOM. TOLERATING FOOD AND FLUID. CONT B/B, STATES BM EVERY DAY. CHRONIC FIBROMYALGIA PAIN CONTROLLED WITH SCHED LYRICA. STILL WAITING ON GUARDIANSHIP AND PLACEMENT. WILL REPORT TO MER RN
[2025-03-19 20:06] VITALS: BP 134/70
[2025-03-20 02:23] VITALS: BP 106/53
--- NOTE | 2025-03-20 05:41 | NUR ---
SHIFT SUMMARY PT ALERT ORIENTED ABLE TO VERBALIZE NEEDS GETS UP TO BATHROOM AD SEB. C/O GENERAL PAIN MEDICATED WITH TYLENOL WITH GOOD PAIN RELIEF. SHE HAS SLEPT MOST OF THE NIGHT. REMAINS ON 1L OXYGEN SATTING AT 91%. AWAITING GUARDIANSHIP AND SENIOR CARE CARE PLACEMENT. RESTING IN BED AT THIS TIME WITH CALL LIGHT IN REACH
[2025-03-20 07:31] VITALS: BP 109/65
[2025-03-20 15:33] VITALS: BP 128/71
--- NOTE | 2025-03-20 18:55 | NUR ---
JOSE FRANCISCO- PT A/O X4, INDEPENDANT IN ROOM. TOLERATING FOOD AND FLUID. STATES SHE HAS HAD A BM REGULARLLY EVERY DAY. STILL AWAITING GUARDIANSHIP PLACEMENT. PT HAD ONE EPISODE AFTER LUNCH OF INCREASED ANXIETY IN WHICH SHE CALLED FOR AN ATIVAN. SHE STATES, " SOON I START TO FEEL MY MIND RACING, I FIGURE I SHOULD TAKE ONE BEFOER GOING INTO A FULL BLOWN ANXIETY ATTACK". PT NAPPED ON/OFF T.O. THE DAY. WILL REPORT TO NOC RN
[2025-03-20 19:36] VITALS: BP 106/59
--- NOTE | 2025-03-21 04:09 | NUR ---
SHIFT SUMMARY PT ALERT ORIENTED ABLE TO VERBALIZE NEEDS NO BEHAVIORS THIS SHIFT. GETS UP AD SEB IN ROOM AND AMBULATES TO THE BATHROOM. NO C/O PAIN THIS SHIFT. DR. DACOSTA CALLED AND SAID THAT HES DCING ALL OF HER BENZOS AND DO NOT GIVE ATIVAN AND TO GIVE SEROQUEL IF NEEDED FOR BEHAVIORS. I WENT ONTO THE ORDERS AND HE HAD DCED THE PRN ATIVAN BUT NOT THE NOC ATIVAN. WILL HAVE AM SHIFT CALL HIM TO CONFIRM HIS ORDERS. SHES AWAITING GUARDIANSHIP AND ASSISTED PLACEMENT. VSS ON RA SATTING AT 92%. RESTING IN BED AT THIS TIME WITH CALL LIGHT IN REACH
[2025-03-21 05:35] VITALS: BP 103/55
[2025-03-21 08:03] VITALS: BP 112/65
[2025-03-21 15:31] VITALS: BP 131/75
--- NOTE | 2025-03-21 18:37 | NUR ---
End of shift summary: Patient is alert and oriented x3, drowsy today and sleeping well throughout shift. Patient denied CP, SOB, N/V/D or pain today. All medications administered per EMAR. No acute changes this shift. Utilizing call light appropriately; call light within reach, bed in lowest position.
[2025-03-21 19:47] VITALS: BP 129/58
[2025-03-22 04:28] VITALS: BP 105/64
--- NOTE | 2025-03-22 04:43 | NUR ---
SHIFT SUMMARY PATIENT A/O X4 AND IND IN THE ROOM. VITAL SIGNS REMAINED STABLE. NO IV ACCESS. NO PAIN REPORTED. TOLERATING PO INTAKE. PT STATES THAT SHE "DOESN'T FEEL THE BEST," BUT STATES THAT SHE ISN'T SURE WHY. SHE STATES THAT HER MENTAL HEALTH IS "OKAY." REPORTS VOIDING AND PASSING STOOL WITH NO COMPLICATIONS. NO ACUTE CHANGES THROUGHOUT SHIFT. WILL CONTINUE TO MONITOR AND REPORT TO ONCOMING RN.
[2025-03-22 07:56] VITALS: BP 119/64
[2025-03-22 15:14] VITALS: BP 125/72
--- NOTE | 2025-03-22 17:58 | NUR ---
End of shift summary: Patient is alert and oriented x3; pleasant and cooperative with care. Patient with complaint of anxiety/feeling agitated and PRN medication administered per EMAR with good relief. Patient with no acute changes this shift and resting comfortably at this time. Patient utilizing call light appropriately; call light within reach and bed in lowest position. Will continue to monitor until next shift nurse arrives and report is given.
[2025-03-22 19:25] VITALS: BP 126/66
[2025-03-23 05:44] VITALS: BP 108/50
--- NOTE | 2025-03-23 06:04 | NUR ---
SHIFT SUMMARY PATIENT A/O X4- IND IN THE ROOM. PLEASANT AND COOPERATIVE WITH CARE. SMILING AND MAKING JOKES THIS SHIFT. NO ACUTE CHANGES THROUGHOUT SHIFT. PT REPORTS VOIDING WITHOUT DIFFICULTY. ADEQUATE INTAKE. APPEARS TO HAVE SLEPT WELL. WILL CONTINUE TO MONITOR AND REPORT TO ONCOMING RN.
[2025-03-23 07:33] VITALS: BP 114/67
[2025-03-23 15:48] VITALS: BP 146/68
--- NOTE | 2025-03-23 17:46 | NUR ---
End of shift summary: Patient is alert and oriented x3; pleasant and cooperative with care. No acute changes this shift. No complaint of CP, SOB, N/V/D or pain today. All medications administered per EMAR. Patient resting throughout the day. Bed in lowest position, call light within reach. Will continue to montior until next shift nurse arrives and report is given.
[2025-03-23 20:35] VITALS: BP 119/60
[2025-03-24 04:46] VITALS: BP 124/55
--- NOTE | 2025-03-24 06:02 | NUR ---
SHIFT SUMMARY 55 YR F ADMITTED ON 01/21/25. FULL CODE. NO ACUTE CHANGES THIS SHIFT. PT HAS BEEN PLEASANT AND COOPERATIVE. NO C/O PAIN OR DISCOMFORT THIS SHIFT. SHE APPEARS TO HAVE RESTED COMFORTABLY THROUGHOUT MOST OF THIS SHIFT. CALLS APPROPRIATELY FOR ASSISTANCE WHEN NEEDED. NO CHANGES TO REPORT. BED IN LOW POSITION AND CALL LIGHT IN REACH.
[2025-03-24 07:40] VITALS: BP 118/70
[2025-03-24 16:38] VITALS: BP 142/74
--- NOTE | 2025-03-24 16:54 | NUR ---
SHIFT SUMMARY NO ACUTE CHANGES, A/Ox4, ABLE TO MAKE NEEDS KNOWN AND USE CALL SYSTEM APPROPRIATELY. INDEPENDENT IN ROOM. YEAST RASH UNDER BREASTS - ENCOURAGED SHOWER TODAY, PT WANTS TO WAIT UNTIL TOMORROW. MICONOZOLE POWDER APPLIED PER EMAR. PT DENIES PAIN OR DISTRESS. PT CURRENTLY RESTING IN BED WITH BED IN LOWEST POSITION AND CALL LIGHT WITHIN REACH.
[2025-03-24 20:16] VITALS: BP 136/74
--- NOTE | 2025-03-25 05:40 | NUR ---
SHIFT SUMMARY 55 YR F ADMITTED SINCE 01/21/25. FULL CODE. NO ACUTE CHANGES THIS SHIFT. PT CONTINUES TO BE A&O X 4 AND INDEPENDANT IN THE ROOM. SHE APPEARS TO HAVE RETSED COMFORTABLY THROUGHOUT THE NIGHT. ABLE TO MAKE NEEDS KNOWN. BED IN LOW POSITION AND CALL LIGHT IN REACH.
[2025-03-25 06:13] VITALS: BP 122/71
[2025-03-25 07:46] VITALS: BP 126/73
[2025-03-25 14:48] VITALS: BP 134/79
--- NOTE | 2025-03-25 16:55 | NUR ---
SHIFT SUMMARY NO ACUTE CHANGES, A/Ox4, INDEPENDENT IN ROOM. GOOD APPETITE. MEDICATED FOR PAIN PER EMAR. ENCOURAGED SHOWER TODAY - PT REFUSED. REPORTS BM YESTERDAY. PT CURRENTLY RESTING IN BED WITH BED IN LOWEST POSITION AND CALL LIGHT WITHIN REACH. PT CALLS APPROPRIATELY.
[2025-03-25 19:13] VITALS: BP 132/75
[2025-03-26 03:49] VITALS: BP 118/78
[2025-03-26 03:50] VITALS: BP 118/78
[2025-03-26 08:03] VITALS: BP 120/74
--- NOTE | 2025-03-26 11:51 | NUR ---
MET WITH PATIENT AND GURARDIAN TO FILL OUT POLST. REVIEWED OPTIONS ON POLST. FULL CODE WAS SELECTED. SIGNED BY PROVIDER, SENT TO MEDICAL RECORDS AND POLST REGISTRY.
[2025-03-26 14:50] VITALS: BP 120/75
--- NOTE | 2025-03-26 17:25 | NUR ---
NO CHANGES IN PT STATUS TODAY. PT HAD C/O PAIN SEE EMAR FOR DETAILS.
--- NOTE | 2025-03-26 17:40 | NUR ---
Pt. is awake in bed and welcomed my visit. Pt. displayed evidence of being more alert than in some previous visits. Pt. did verbalize an increase in pain in her right hip. Listen with empathy and a calming presence. While the Pt. displayed evidence of spiritual peace, this purchasing manager encouraged the Pt. to step up to the challenge of becoming engaged in PT. Pt. displayed evidence of understanding and agreement. Prayed with Pt. Pt. verbalized gratitude for the spiritual care visit.
[2025-03-26 19:13] VITALS: BP 122/75
[2025-03-27 03:37] VITALS: BP 109/61
--- NOTE | 2025-03-27 05:45 | NUR ---
MAINTENANCE WORKER SWIMMING POOL SUMMARY PT A&OX4, VSS. PT PLEASANT AND MOSTLY COOPERATIVE W/ CARE. PT HAS BEEN ASLEEP FOR MOST OF THE NIGHT. CHEST RISE/RESPIRATIONS NOTED. NO C/O PAIN OR CONCERNS THIS SHIFT. INDEPENDENT IN ROOM. BED RAILS UP X 2, BED IN LOWEST POSITION, BED WHEELS LOCKED, PERSONAL BELONGINGS AND CALL LIGHT WITHIN REACH FOR SAFETY.
[2025-03-27 07:39] VITALS: BP 104/54
[2025-03-27 15:52] VITALS: BP 120/63
[2025-03-27 19:18] VITALS: BP 116/67
--- NOTE | 2025-03-27 19:23 | NUR ---
SHIFT SUMMARY PT A&OX4. PT ADMITTED DUE TO UTI. PT INDEOENDENT IN ROOM. PT USES 2-3L OF O2 POST AMBULATION, PT REPORTS PAIN, PAIN MANAGED PER EMAR. VSS. PT REPORTS NO CHEST PAIN. PT HAS NO IV ORDER. PT EATS ADEQUATE. PLAN AWAITING PLACEMENT, PT IN BED, BED IN LOWEST POSITION, CALL LIGHT IN REACH.
[2025-03-28 04:03] VITALS: BP 117/70
--- NOTE | 2025-03-28 05:53 | NUR ---
PRE OWNED SALES MANAGER SUMMARY PT A&OX4, VSS. PT PLEASANT AND MOSTLY COOPERATIVE W/ CARE. HAS BEEN ASLEEP FOR THE MAJORITY OF THE SHIFT. CHEST RISE/RESPIRATIONS NOTED. NO C/O PAIN NOR CONCERNS THIS SHIFT. INDEPENDENT IN ROOM. BED RAILS UP X 2, BED IN LOWEST POSITION, BED WHEELS LOCKED, PERSONAL BELONGINGS AND CALL LIGHT WITHIN REACH FOR SAFETY.
[2025-03-28 07:31] VITALS: BP 116/62
[2025-03-28 16:23] VITALS: BP 137/74
--- NOTE | 2025-03-28 16:56 | NUR ---
Pt. welcomed my visit as she was watching TV in bed. Pt. displayed evidence of being engaged and aware as I facilitated a life review. P. was able to verbalized some expectations and shared about her appointed Guardian who she likes and trusts. This systems mechanic was called away on a trauma team activation. Pt. verbalized gratitude for the Spiritual Care support.
[2025-03-28 19:20] VITALS: BP 146/76
--- NOTE | 2025-03-28 19:20 | NUR ---
SHIFT SUMMARY PT A&OX4. PT ADMITTED DUE TO UTI. PT INDEPENDENT IN ROOM. PT USES 2-3L OF O2 POST AMBULATION, PT REPORTS "ALWAYS HAVE SOB DUE TO COPD." PT REPORTS PAIN, PAIN MANAGED PER EMAR. VSS. PT REPORTS NO CHEST PAIN, PT HAS NO IV ORDER. PT EATS ADEQUATE. PLAN AWAITING PLACEMENT, PT IN BED, BED IN LOWEST POSITION, CALL LIGHT IN REACH.
[2025-03-29 02:49] VITALS: BP 129/69
--- NOTE | 2025-03-29 04:09 | NUR ---
SHIFT SUMMARY PATIENT HAD NO ACUTE CHANGES. ALERT ORIENTED AND INDEPENDENT. DENIES CHEST PAIN, SOB, AND N/V. VSS/AFEBRILE. USES 2-3 O2 NC PRN. NO IV ACCESS. WATCHED TV FIRST PART OF SHIFT. CALL LIGHT IN REACH. BED IN LOWEST POSITION. WILL CONTINUE TO MONITOR UNTIL DAY SHIFT NURSE ASSUMES CARE.
[2025-03-29 07:13] VITALS: BP 128/72
[2025-03-29 15:28] VITALS: BP 134/68
[2025-03-29 19:20] VITALS: BP 138/67
[2025-03-30 03:15] VITALS: BP 104/68
--- NOTE | 2025-03-30 04:45 | NUR ---
SHIFT SUMMARY PATIENT HAD NO ACUTE CHANGES. ALERT AND ORIENTED AND INDEPENDENT IN ROOM. USES OXYGEN AT NIGHT 2L O2 PRN. DENIES CHEST PAIN, SOB, AND N/V. VSS/AFEBRILE. SLEPT MOST OF THE SHIFT. CALL LIGHT IN REACH. BED IN LOWEST POSITION. WILL CONTINUE TO MONITOR UNTIL DAY SHIFT NURSE ASSUMES CARE.
[2025-03-30 07:23] VITALS: BP 104/54
[2025-03-30 16:25] VITALS: BP 122/67
[2025-03-30 19:28] VITALS: BP 118/54
[2025-03-31 04:19] VITALS: BP 104/55
--- NOTE | 2025-03-31 04:29 | NUR ---
SHIFT SUMMARY PATIENT HAD NO ACUTE CHANGES. ALERT ORIENTED AND INDEPENDENT IN ROOM. DENIES CHEST PAIN AND N/V. REPORTS SOB W/EXERTION. ON 3 O2 NC BASELINE. VSS/AFEBRILE. RT IN FOR BREATHING TX. SLEPT MOST OF THE SHIFT. CALL LIGHT IN REACH. BED IN LOWEST POSITION. WILL CONTINUE TO MONITOR UNTIL DAY SHIFT NURSE ASSUMES CARE.
[2025-03-31 07:20] VITALS: BP 128/55
[2025-03-31 15:20] VITALS: BP 131/65
--- NOTE | 2025-03-31 19:22 | NUR ---
SHIFT SUMMARY PT IS A/OX4. INDEPEDNENT IN THE ROOM. NO ACUTE CHANGES THROUGHOUT THIS SHIFT. PT SLEEPING FOR MUCH OF THE DAY. PT IS PLEASANT AND COOPERATIVE WITH CARE AND CALLS APPROPRIATELY USING THE CALL LIGHT...
[2025-03-31 19:33] VITALS: BP 118/60
[2025-04-01 03:39] VITALS: BP 101/56
[2025-04-01 07:35] VITALS: BP 113/52
--- NOTE | 2025-04-01 15:06 | NUR ---
Pt. is awake and welcomes my visit. Pt. is pleasant. Facilitaed an update. Pt. displays evidence of being being patient, but also displays some evidence of discouragement in the delays in the form of mild anxiety. Listen with interest and a calming presence. Prayed with pt. Pt. verbalzied gratitude for the spiritual care visit.
[2025-04-01 15:39] VITALS: BP 144/72
--- NOTE | 2025-04-01 18:38 | NUR ---
SHIFT SUMMARY PT IS A/OX4. INDEPENDENT IN THE ROOM. NO ACUTE EVENTS THROUGHOUT THIS SHIFT. PT SLEEPING FOR MUCH OF THIS DAY. AWAITING GUARDIANSHIP AND PLACEMENT. PT IS PLEASANT AND COOPERATIVE WITH CARE.
[2025-04-01 19:49] VITALS: BP 133/70
--- NOTE | 2025-04-02 05:19 | NUR ---
SHIFT SUMMARY: PT IS AOX2-3. PT IS IND IN ROOM AND CONT. MEDICATED PER EMAR. PT SLEPT THROUGH OUT THE NIGHT AND IS ABLE TO MAKE NEEDS KNOWN. NO ACUTE CHANGES THIS SHIFT.
[2025-04-02 05:44] VITALS: BP 111/66
[2025-04-02 07:37] VITALS: BP 140/69
[2025-04-02 15:50] VITALS: BP 133/71
[2025-04-02 21:05] VITALS: BP 140/83
--- NOTE | 2025-04-03 05:22 | NUR ---
SHIFT SUMMARY PATIENT IS ALERT AND ORIENTED. PATIENT HAS HAD NO ACUTE EVENTS THIS SHIFT. VITAL SIGNS REVIEWED. PATIENT HAS BEEN SLEEPING MOST OF THE SHIFT. PATIENT AHS NO COMPLAINTS OF SOB, NAUSEA, VOMITTING OR PAIN THIS SHIFT. BED IN LOCKED AND LOWEST POSITION. CALL LIGHT IN PLACE.
[2025-04-03 06:21] VITALS: BP 144/71
[2025-04-03 07:46] VITALS: BP 109/56
[2025-04-03 16:00] VITALS: BP 122/68
--- NOTE | 2025-04-03 17:59 | NUR ---
NOTE PT AWAKE. UP AD SEB IN ROOM. NO CHANGES OR EVENTS. ENCOURAGED TO WALK IN THE HALLWAY. SHE REFUSED. ENCOURAGED TO SIT IN THE CHAIR AT BEDSIDE. SHE REFUSED. ENCOURAGED TO SHOWER. SHE REFUSED. NO COMPLAINTS OR CHANGES IN CONDITION. CARE ONGOING.
[2025-04-03 19:30] VITALS: BP 117/63
[2025-04-04 05:53] VITALS: BP 120/65
--- NOTE | 2025-04-04 06:34 | NUR ---
SHIFT SUMMARY PT SLEPT LONG INTERVALS DURING THE NIGHT. DOES NEED O2 WHILE SLEEPING. PT UP INDEPENDENTLY IN ROOM. MEDICATED FOR GENERALIZED PAIN X1 WITH TYLENOL PER EMAR.
[2025-04-04 07:35] VITALS: BP 119/55
[2025-04-04 14:46] VITALS: BP 125/65
--- NOTE | 2025-04-04 17:25 | NUR ---
SHIFT SUMMARY PT A&OX4, VSS, TOLERATING PO, AND PAIN MANAGED PER EMAR. PT ENCOURAGED TO AMB AND BE UP IN CHAIR FOR MEALS, BUT REFUSED. NO ACUTE CHANGES. CALL LIGHT WITHIN REACH AND PT ABLE TO MAKE NEEDS KNOWN.
[2025-04-04 19:52] VITALS: BP 120/61
[2025-04-05 03:25] VITALS: BP 112/60
--- NOTE | 2025-04-05 05:20 | NUR ---
SHIFT SUMMARY PT INDEPENDENT IN ROOM. SLEPT INTERMITTENTLY. ENCOURAGED PT TO AMBULATE MORE AND SIT IN CHAIR, BUT PT DECLINES, STATING, "TOMORROW".
[2025-04-05 07:42] VITALS: BP 104/54
[2025-04-05 15:17] VITALS: BP 133/72
--- NOTE | 2025-04-05 17:15 | NUR ---
SHIFT SUMMARY: A&OX4 THIS SHIFT. NO ACUTE CHANGES. MEDICATED PER EMAR. ENCOURAGED PT TO AMBULATE AND GET UP IN THE CHAIR FOR MEALS. INDEPENDENT IN ROOM. LYING IN BED AT THIS TIME. BED LOCKED AND IN THE LOWEST POSITION. CALL LT NEAR.
[2025-04-05 19:38] VITALS: BP 144/63
[2025-04-06 04:23] VITALS: BP 114/56
--- NOTE | 2025-04-06 06:05 | NUR ---
SHIFT SUMMARY PT SLEPT INTERMITTENTLY DURING THE NIGHT. MEDICATED FOR HEADACHE PER EMAR. UP INDEPENDENTLY IN ROOM. CONTINUES TO DELINE SITTING IN CHAIR OR AMBULATING IN HALLWAY.
[2025-04-06 07:13] VITALS: BP 141/69
[2025-04-06] MEDS ORDERED: HYDROcodone 5-APAP 325 TAB PO ONE (12:35)
[2025-04-06 16:04] VITALS: BP 125/61
--- NOTE | 2025-04-06 18:08 | NUR ---
SHIFT SUMMARY: A&OX4 THROUGHOUT SHIFT. NO ACUTE EVENTS. AMBULATES INDEPENDENTLY IN ROOM. COMPLAINTS OF A HEADACHE, MEDICATED PER EMAR. LYING IN BED AT THIS TIME. BED LOCKED AND IN THE LOWEST POSITION. CALL LT WITHIN REACH.
[2025-04-06 19:20] VITALS: BP 127/59
[2025-04-07 04:09] VITALS: BP 115/62
--- NOTE | 2025-04-07 05:45 | NUR ---
SHIFT SUMMARY PT CONTINUES TO C/O EDEN THIS SHIFT- MEDICATED WITH TYLENOL PER EMAR. PT UP INDEPENDENTLY IN ROOM. USING O2 2L NC WHILE SLEEPING. SLEPT LONG INTERVALS DURING THE NIGHT.
[2025-04-07 07:31] VITALS: BP 123/67
[2025-04-07 15:45] VITALS: BP 120/79
--- NOTE | 2025-04-07 18:20 | NUR ---
SHIFT SUMMARY A&OX4, VSS, MEDICATED FOR EDEN AT 1800, BEDRESTING AT THIS TIME, ABLE TO MAKE NEEDS KNOWN, WILL CONT TO MONITOR.
[2025-04-07 19:08] VITALS: BP 128/64
[2025-04-08 04:26] VITALS: BP 108/53
--- NOTE | 2025-04-08 05:52 | NUR ---
SHIFT SUMMARY A&OX4. ABLE TO MAKE ALL NEEDS KNOWN. SKIN UNDER BREAST AND IN ABDOMINAL FOLD CLEANSED AND POWDER APPLIED. EDUCATED ON REPOSITIONING FOR COMFORT.PT RESTED COMFORTABLY THROUGHOUT THE NIGHT IN BED AT LOWEST POSITION WITH RAILS X2 AND CALL LIGHT WITHIN REACH.
[2025-04-08 07:12] VITALS: BP 109/62
--- NOTE | 2025-04-08 15:06 | NUR ---
After several attempts earlier today, I was able to cath the Pt. when she wasn't somnolent. A "groggy" Pt. welcomed my visit. Pt. verbalized frustration like she was continuing to feel sick. Listened with interest and empathy, and aske the Pt. how this hospital stay is impacted or has helped in her hospital stay. Pt. was realistic in her response, but continued to welcome care and support. Pryaed with the Pt. Pt. verbalized gratude for the spiritual care visit.
[2025-04-08 15:16] VITALS: BP 124/61
--- NOTE | 2025-04-08 17:56 | NUR ---
SHIFT SUMMARY PT A&OX4, VSS, REFUSED SHOWER AND WALING IN HALLWAY THIS SHIFT, C/O PAIN IN BL HIPS AND ACROSS ABD- MEDICATED W/TYLENOL X2, UP WATCHING TV AT THIS TIME, CALL LIGHT IN REACH, WILL CONT TO MONITOR UNTIL REPORT GIVEN TO ONCOMING NURSE.
[2025-04-08 20:10] VITALS: BP 120/52
[2025-04-09 04:55] VITALS: BP 110/69
--- NOTE | 2025-04-09 05:26 | NUR ---
SHIFT SUMMARY A&OX4. ABLE TO MAKE ALL NEEDS KNOWN. PT REPORTED RADIATING ABD PAIN AND WAS MEDICATED PER EMAR JUST PRIOR TO SHIFT CHANGE. THIS HELPED SOME. DISCUSSED REPOSITIONING AND ASSISTED PT TO BOOST IN BED. PT VOCALIZED THIS HELPED SOME WELL. EDUCATED PT ON IMPORTANCE OF MOBILITY AND OFFLOADING COCCYX WHICH IS RED BUT BLANCHABLE. PT V/U. PT WORE O2 WHILE SLEEPING AND SLEPT WELL THROUGHOUT THE NIGHT. PT CURRENTLY SLEEPING IN BED AT LOWEST POSITION WITH RAILS X2 AND CALL LIGHT WITHIN REACH.
[2025-04-09 10:34] LABS: Hematocrit 41.1 % (33.0-51.0); Hemoglobin 13.1 g/dL (11.5-16.0); Mean Corpuscular HGB Conc 31.9 g/dL (31.5-36.5); Mean Corpuscular Volume 90 fL (80-100); NRBC ABSOLUTE 0.00 K/mm3 (0.00-0.02); NRBC Auto 0.0 /100 WBC (0.0-0.2); Platelet Count 257 K/mm3 (150-400); RDW Coefficient Variation 15.2 % (11.7-14.2); RDW Standard Deviation 50.2 fL (35.1-46.3)
[2025-04-09 10:52] LABS: Anion Gap 9.0 mmol/L (3-11); Blood Urea Nitrogen 15.0 mg/dL (8-24); CO2, Blood 31.0 mmol/L (21-32); Calcium, Blood 8.6 mg/dL (8.5-10.1); Chloride, Blood 102.0 mmol/L (98-108); Creatinine, Blood 0.71 mg/dL (0.40-1.00); Glucose, Blood 182.0 mg/dL (70-99); Potassium, Blood 4.0 mmol/L (3.5-5.5); Sodium, Blood 138.0 mmol/L (136-145)
[2025-04-09 11:13] VITALS: BP 137/74
[2025-04-09 16:46] VITALS: BP 125/68
--- NOTE | 2025-04-09 18:15 | NUR ---
SHIFT SUMMARY PATIENT A/OX4, ABLE TO MAKE NEEDS KNOWN. PLEASANT AND COOPERATIVE WITH CARE TODAY. PATIENT COMPLAINING OF ABDOMINAL PAIN AND HEADACHE THIS MORNING, TYLENOL ADMINISTERED PER SEP WHICH WAS EFFECTIVE. REDNESS TO UNDER BREASTS AND PANNUS, MICONAZOLE APPLIED PER SEP. PATIENT REFUSED BOWEL MEDS THIS SHIFT, WILL CONTINUE TO MONITOR. PATIENT COMPLAINING OF HARD BOWEL MOVEMENTS AND CONTINUED TO REFUSE STOOL SOFTENERS TODAY. HOWEVER PATIENT WITH BOWEL MOVEMENT LAST NIGHT. NO OTHER CONCERNS AT THIS TIME, WILL CONTINUE TO MONITOR.
[2025-04-09 19:51] VITALS: BP 121/60
[2025-04-10 04:27] VITALS: BP 104/60
--- NOTE | 2025-04-10 05:50 | NUR ---
SHIFT SUMMARY A&OX4. ABLE TO MAKE NEEDS KNOWN. CALLS APPROPRIATELY. WAS AWAKEN FROM SLEEP FROM RIGHT ABD PAIN THAT RADIATES TO RIGHT LOWER BACK AREA. TYLENOL GIVEN PER EMAR. ALSO REPOSITIONED PT IN BED AND EDUCATED ON IMPORTANCE OF THIS TO HELP WITH PAIN MANAGEMENT. SHE V/U. WILL REPORT TO DAY SHIFT TO INFORM DOCTOR. PT CURRENTLY SLEEPING IN BED AT LOWEST POSITION WITH HOB ELEVATED, RAILS X2 AND CALL LIGHT WITHIN REACH.
[2025-04-10 07:48] VITALS: BP 97/75
[2025-04-10 16:29] VITALS: BP 127/74
--- NOTE | 2025-04-10 18:28 | NUR ---
no acute changes this shift, call light in reach.
[2025-04-10 20:01] VITALS: BP 128/71
[2025-04-11 04:14] VITALS: BP 78/23
[2025-04-11 05:02] VITALS: BP 107/60
--- NOTE | 2025-04-11 06:26 | NUR ---
ASSOCIATE MARKETING MANAGER SUMMARY NO ACUTE CHANGES. PT ABLE TO MAKE NEEDS KNOWN. SLEPT WELL T/O THE NIGHT. REGULAR INTERVAL ROUNDING DONE T/O THE NIGHT. CALL LIGHT ACCESSIBLE.
[2025-04-11 07:13] VITALS: BP 125/65
[2025-04-11 17:07] VITALS: BP 120/73
--- NOTE | 2025-04-11 17:44 | NUR ---
SPiritual Care Visit. Pt. is awake in bed and welcomes this validation software facilitator. This validation software facilitator has had many visits with this Pt. Facilitated an update. Pt. verbalizes some her long past family history which has resulted in her bad habits which has impacted her declining health. Listen with empathy and a calming presence. The Pt. verbalizes that she is not aware of any discharge plan. Seek to normalize the Pt. experience. Pt. displayed evidence of understanding and agreement. Prayed with pt. Pt. verbalzied gratitude fo rthe spiritual care visit.
--- NOTE | 2025-04-11 18:30 | NUR ---
SHIFT SUMMARY PT CONT LEVEL OF CARE. DURING NURSE PROVIDER ROUNDS PROVIDER ASKED IF STAFF HAS WITNESSED PT HAVING A BM PT HAS STATED YES BUT STAFF HAS NOT WITNESSED. PT GIVEN MIRLAX THIS AM. AND ASKED TO LET STAFF KNOW WHEN SHE HAS A BM AND TO NOT FLUSH IT. PT STATED UNDERSTANDING. NO BM NOTED AT THIS TIME. PLAN IS TO DC TO LTC AWAITING PLACEMENT.
[2025-04-11 19:14] VITALS: BP 116/66
--- NOTE | 2025-04-12 03:13 | NUR ---
SHIFT SUMMARY: AOX4, COOPERATIVE, AND CALM. DENIED ANY DELUSIONS/HALLUCINATIONS TONIGHT. AMBULATES INDEPENDENTLY IN ROOM. CALL LIGHT IS WITHIN REACH. BED IS LOW AND LOCKED.
[2025-04-12 03:52] VITALS: BP 97/49
[2025-04-12 07:03] VITALS: BP 123/65
[2025-04-12] MEDS ORDERED: Polyethylene Glycol 3350 17 gm PO SCH (13:00)
--- NOTE | 2025-04-12 13:49 | NUR ---
PT REPORTS RIGHT FLANK AND RIGHT ABD PAIN 10/[address]. SPOKE [address] FREEMAN AND ORDERS RECEIVED
[2025-04-12 16:19] VITALS: BP 110/69
--- NOTE | 2025-04-12 18:42 | NUR ---
PT IS A/Ox4. PLEASANT AND COOPERATIVE WITH CARE. PT HAS REPORTED RIGHT FLANK PAIN THATS BEEN TREATED PER EMAR. HOWEVER, PAIN MANAGEMENT HAS NOT BEEN VERY EFFECTIVE. AN ABD XRAY HAS BEEN ORDERED.
[2025-04-12 19:12] VITALS: BP 118/55
[2025-04-13 05:16] VITALS: BP 120/58
--- NOTE | 2025-04-13 06:08 | NUR ---
SHIFT SUMMARY: AOX4. VSS. INDEPENDENT IN ROOM. DENIES ANY HALLUCINATIONS OR DELUSIONS THIS SHIFT. CALL LIGHT IS WITHIN REACH. BED IS LOW AND LOCKED.
[2025-04-13 07:27] VITALS: BP 118/73
[2025-04-13] MEDS ORDERED: OxyCODONE 5 mg/Acetamin 325 mg TABLET PO PRN (13:55)
[2025-04-13 14:44] VITALS: BP 121/58
--- NOTE | 2025-04-13 16:39 | NUR ---
PT A/Ox4. INDEPENDENT IN HER ROOM. PT WAS ENCOURAGED TO REPOSITION HERSELF Q2H, AMBULATE, AND SIT IN HER CHAIR TODAY. SHE SAT UP IN HER CHAIR BRIEFLY BUT REFUSED TO AMBULATE. GENERALIZED PAIN TREATED PER EMAR.
[2025-04-13 19:20] VITALS: BP 113/61
[2025-04-14 03:42] VITALS: BP 105/53
--- NOTE | 2025-04-14 04:12 | NUR ---
SHIFT SUMMARY: AOX4. VSS. INDEPENDENT IN ROOM. DENIES ANY HALLUCINATIONS OR DELUSIONS THIS SHIFT. CALL LIGHT IS WITHIN REACH. BED IS LOW AND LOCKED.
[2025-04-14 07:15] VITALS: BP 113/52
--- NOTE | 2025-04-14 07:17 | NUR ---
ASSUMED CARE OF PATIENT AT THIS TIME. PATIENT IS RESTING IN BED. DENIES NEEDS AT THIS TIME.
[2025-04-14 15:56] VITALS: BP 134/69
--- NOTE | 2025-04-14 16:54 | NUR ---
PATIENT A/OX4, UP TO CHAIR FORM BREAKFAST, REFUSED FOR LUNCH. REPORTS NAUSEA AND JUST GENERALLY NOT FEELING WELL TODAY. REPORTS LOW BACK PAIN AND R FLANK PAIN. PEROCET GIVEN X1 AND LIDOCAINE PLACED TO LOW BACK. VSS, ON 2LO2 TO MAINTAIN SATS >92%. GUARDIAN AT BEDSIDE THIS SHIFT. PATIENT INDEPENDENT IN ROOM. NEEDS ENCOURAGEMENT TO GET OOB. NO NEW CONCERNS THIS SHIFT. PATIENT AWAITING PLACEMENT AND MEDICAID APPROVAL.
[2025-04-14 19:23] VITALS: BP 122/64
[2025-04-14] MEDS ORDERED: Docusate Sodium/Senna 1 Tab PO SCH (21:00)
[2025-04-15 04:41] VITALS: BP 106/56
--- NOTE | 2025-04-15 05:52 | NUR ---
SHIFT SUMMARY: AOX4. INDEPENDENT IN ROOM. PT RECIEVING A FLEET ENEMA THIS SHIFT, PT HAD ROUND STOOL OUTPUT. PT ALSO RECIEVED STOOL SOFTENERS, BECAUSE PT STATED THAT IT WAS DIFFICULT FOR THE STOOL TO COME OUT. PT DID COMPLAIN OF PAIN EARLY THIS MORNING WELL, WAS MEDICATED PER eMAR. CALL LIGHT IS WITHIN REACH. BED IS LOW AND LOCKED.
[2025-04-15 07:51] VITALS: BP 111/71
[2025-04-15] MEDS ORDERED: Morphine Sulfate 4 MG/1 ML Injection IV PRN (12:15)
[2025-04-15 15:55] VITALS: BP 124/64
--- NOTE | 2025-04-15 18:25 | NUR ---
PATIENT A/OX4, FORGETFUL AT TIMES. C/O R FLANK PLAIN 05/09 TODAY. REPORTS PAIN IS WORSE WITH MOVEMENT. IV STARTED AND IV MORPHINE GIVEN WITH STATED RELIEF. PATIENT NEEDS ENCOURAGEMENT TO GET UP FOR MEALS. VSS, 2LO2 TO MAINTAIN SATS >90%. AWAITING MEDICAID AND PLACEMENT.
[2025-04-15 19:40] VITALS: BP 114/60
[2025-04-16 03:32] VITALS: BP 123/60
--- NOTE | 2025-04-16 05:16 | NUR ---
SHIFT SUMMARY NOC PT A/O X 3-4. PLEASANT AND COOPERATIVE WITH CARE. VSS. NO ACUTE CHANGES TO REPORT. R FLANK PAIN BEING MANAGED PER EMAR WELL PSYCH MEDS. PT AWAITING LTC PLACEMENT AND MEDICAID APPROVAL. PT CURRENTLY RESTING WITH BED IN LOWEST POSITION, AND CALL LIGHT WITHIN REACH.
[2025-04-16 07:30] VITALS: BP 152/87
[2025-04-16 16:01] VITALS: BP 123/67
--- NOTE | 2025-04-16 17:18 | NUR ---
PATIENT A/OX3-4, UP INDEPENDENTLY IN ROOM. VSS, ON 2LO2 TO MAINTAIN SATS. PATIENT VERY ANXIOUS THIS AM, IMPROVED WITH SEROQUEL. REPORTS BACK PAIN AND WAS ENCOURAGED TO GET OOB AND AMBULATE. PATIENT VERY RESISTANT TO ACITVITY. EDUCATED ON THE IMPORTANCE OF MOVEMENT TO PREVENT DECONDITIONING. AWAITING MEDICAID APPROVAL AND PLACEMENT.
--- NOTE | 2025-04-16 17:45 | NUR ---
Spiritual Care Visit. Pt. is somnolent, but this farmer vegetable is encouraged by the Pts. nurse to wake her up. Upon waking the Pt. an update is facilitated. The Pt. had no new information to share other than she had gotten out of bed and had walked a short distance. Considered matters of patience and hope. Prayed with the Pt. Pt. verbalized gratitude for the spiritual care visit.
[2025-04-16 20:42] VITALS: BP 135/81
[2025-04-17 03:09] VITALS: BP 129/58
--- NOTE | 2025-04-17 04:28 | NUR ---
SHIFT SUMMARY PATIENT ALERT AND ORIENTED X3-4. PATIENT REMAINED PLEASANT AND RECEPTIVE DURING CARE. PATIENT MAKE NEEDS KNOWN. NO ACUTE CHANGE DURING THIS SHIFT. VITAL SIGNS STABLE. PATIENT SELF-REPOSITIONED THROUGHOUT THE SHIFT. ADMINISTERED MEDICATION PER EMAR. BED LOCKED AND IN LOWEST POSITION. CALL LIGHT WITHIN REACH.
[2025-04-17 07:34] VITALS: BP 122/64
[2025-04-17 15:48] VITALS: BP 135/74
[2025-04-17 19:02] VITALS: BP 121/84
[2025-04-17 19:03] VITALS: BP 121/84
--- NOTE | 2025-04-17 19:34 | NUR ---
SUMMARY- PT A/O X4, INDEPENDANT IN ROOM. TOLERATING FOOD AND FLUIDS. MEDICATED FOR PAIN WITH LYRICA THIS AM FOR CHRONIC PAIN WITH RELEIF. LATER WITH PERCOCET WITH RELEIF. PT NAPPED MOST OF THE DAY, STATES SHE IS FEELING TIRED. PT INTERACTIVE WITH STAFF AND CALM AND APPROPRIATE. AWAITING PLACEMENT
[2025-04-18 05:17] VITALS: BP 122/61
--- NOTE | 2025-04-18 05:47 | NUR ---
SHIFT SUMMARY PATIENT ALERT AND ORIENTED 3-4. PATIENT REMAINED PLEASANT AND RECEPTIVE DURING CARE. NO ACUTE CHANGE DURING THIS SHIFT. VITAL SIGNS STABLE. PATIENT SELF REPOSITIONED THROUGHOUT THE SHIFT. PATIENT SLEPT MOST OF THE NIGHT NO SIGNS OF DISTRESS, RESPIRATION EVEN AND UNLABORED. ADMINISTERED MEDICATION PER EMAR. BED LOCKED AND IN LOWEST POSITION. CALL LIGHT WITHIN REACH.
[2025-04-18 07:55] VITALS: BP 103/60
[2025-04-18 15:32] VITALS: BP 132/78
--- NOTE | 2025-04-18 16:18 | NUR ---
SHIFT SUMMARY: PATIENT A/OX3, PLEASANT AND COOPERATIVE c CARE. PATIENT MEDICATED FOR CHRONIC BACK PAIN AND HEADACHE PER EMAR c GOOD EFFECT. PATIENT NAPPING ON/OFF T/O THE DAY. PATIENT EATING AND DRINKING WELL, CONTINENT OF BLADDER AND AMBULATES TO BATHROOM INDEPENDENTLY. VITAL SIGNS REVIEWED. NO IV ACCESS PER ORDER. CALL LIGHT IN REACH.
[2025-04-18 20:01] VITALS: BP 106/62
[2025-04-19 03:07] VITALS: BP 123/62
--- NOTE | 2025-04-19 05:16 | NUR ---
SHIFT SUMMARY PT A&Ox4 AND ABLE TO MAKE NEEDS KNOWN. MEDICATED FOR PAIN PER EMAR. PT ON 3L OF OXYGEN DURING THE NIGHT. NO ACUTE CHANGES. BED IN LOWEST POSITION AND CALL LIGHT IN REACH.
[2025-04-19 07:34] VITALS: BP 132/82
[2025-04-19 15:30] VITALS: BP 137/66
--- NOTE | 2025-04-19 18:23 | NUR ---
SHIFT SUMMARY: PATIENT A/OX3, PLEASANT AND COOPERATIVE c CARE. PATIENT ON 3L O2 VIA NC SATTING 91-93%. PATIENT RECEIVED SCHEDULED MEDS PER EMAR. PATIENT NAPPED ON/OFF T/O THE DAY. VITAL SIGNS REVIEWED. PATIENT INDEPENDENT IN ROOM, CALLS APPROPRIATELY AND ABLE TO MAKE NEEDS KNOWN. BED IN LOWEST POSITION. CALL LIGHT IN REACH.
[2025-04-19 20:23] VITALS: BP 133/69
[2025-04-20 02:55] VITALS: BP 104/57
--- NOTE | 2025-04-20 04:29 | NUR ---
SHIFT SUMMARY PT A&Ox3 AND PLEASANT. PT C/O EDEN AND MEDICATED PER EMAR WITH GOOD EFFECT. NO ACUTE CHANGES. VSS. IND IN ROOM. ON 3L OF OXYGEN WHILE SLEEPING. BED IN LOWEST POSITION AND CALL LIGHT IN REACH.
[2025-04-20 07:03] VITALS: BP 125/69
[2025-04-20 15:45] VITALS: BP 121/98
--- NOTE | 2025-04-20 17:23 | NUR ---
SHIFT SUMMARY: PATIENT HAS HAD NO NEW CHANGES THIS SHIFT. PATIENT MEDICATED FOR HEADACHE PER EMAR c GOOD EFFECT. PATIENT NAPPED ON/OFF T/O THE DAY. PATIENT ON 2L O2 NC, SATTING 90-95%, LUNGS CLEAR/DIM T/O TO AUSCULATION. PATIENT HAS GREAT APPETITE, CONTINENT OF BAB, INDEPENDENT IN ROOM. VITAL SIGNS REVIEWED. PATIENT AWAITING SAFE PLACEMENT. CALL LIGHT IN REACH.
[2025-04-20 19:37] VITALS: BP 119/58
[2025-04-21 02:15] VITALS: BP 145/87
--- NOTE | 2025-04-21 05:04 | NUR ---
SHIFT SUMMARY: PT AOX3-4 SOME FORGETFULNESS BUT PLEASANT AND COOPERATIVE IN CARE. NO ACUTE OVERNIGHT EVENTS. TOLERATING MEDICATIONS WELL. PT DENIES ANY COMPLAINTS. PT IN BED SLEEPING, BED IN LOWEST POSITION, CALL LIGHT IN REACH. CONTINUING CARE.
[2025-04-21 07:04] VITALS: BP 118/57
[2025-04-21 09:44] LABS: pH Blood Venous 7.39 (7.34-7.37)
[2025-04-21 09:49] LABS: BASOPHILS ABSOLUTE AUTO 0.03 K/mm3 (0.00-0.23); BASOPHILS PERCENT AUTO 1 % (0-2); EOSINOPHILS ABSOLUTE AUTO 0.24 K/mm3 (0.00-0.68); EOSINOPHILS PERCENT AUTO 4 % (0-6); Hematocrit 39.1 % (33.0-51.0); Hemoglobin 12.2 g/dL (11.5-16.0); IMMATURE GRAN ABSOLUTE AUTO 0.06 K/mm3 (0.00-0.10); IMMATURE GRAN PERCENT AUTO 1 % (0-1); LYMPHOCYTES ABSOLUTE AUTO 1.69 K/mm3 (0.84-5.20); LYMPHOCYTES PERCENT AUTO 26 % (21-46); MONOCYTES ABSOLUTE AUTO 0.62 K/mm3 (0.16-1.47); MONOCYTES PERCENT AUTO 9 % (4-13); Mean Corpuscular HGB Conc 31.2 g/dL (31.5-36.5); Mean Corpuscular Volume 91 fL (80-100); NEUTROPHILS ABSOLUTE AUTO 3.98 K/mm3 (1.96-9.15); NEUTROPHILS PERCENT AUTO 60 % (41-73); NRBC ABSOLUTE 0.00 K/mm3 (0.00-0.02); NRBC Auto 0.0 /100 WBC (0.0-0.2); Platelet Count 234 K/mm3 (150-400); RDW Coefficient Variation 15.4 % (11.7-14.2); RDW Standard Deviation 51.7 fL (35.1-46.3)
[2025-04-21 10:24] LABS: Alanine Aminotransfer (ALT/SGP 24.0 U/L (12-78); Albumin, Blood 3.2 g/dL (3.4-5.0); Albumin/Globulin Ratio 0.9 (0.8-1.8); Anion Gap 7.0 mmol/L (3-11); Aspartate Aminotrans (AST/SGOT 20.0 U/L (12-37); Bilirubin, Total 0.3 mg/dL (0.1-1.0); Blood Urea Nitrogen 17.0 mg/dL (8-24); CO2, Blood 32.0 mmol/L (21-32); Calcium, Blood 8.7 mg/dL (8.5-10.1); Chloride, Blood 102.0 mmol/L (98-108); Creatinine, Blood 0.68 mg/dL (0.40-1.00); Globulin, Blood 3.7 g/dL (2.2-4.0); Glucose, Blood 225.0 mg/dL (70-99); Potassium, Blood 3.9 mmol/L (3.5-5.5); Sodium, Blood 137.0 mmol/L (136-145); Total Protein, Blood 6.9 g/dL (6.4-8.2)
[2025-04-21 15:15] VITALS: BP 142/74
--- NOTE | 2025-04-21 17:53 | NUR ---
SHIFT SUMMARY NO ACUTE CHANGES. A/Ox4. ABLE TO MAKE NEEDS KNOWN AND USING CALL SYSTEM APPROPRIATELY. PT REPORTS FEELING TIRED T/O DAY AND SLEEPING UNLESS MEAL TIME OR VISITOR PRESENT. PT SISTER REPORTS PT USING CPAP AT HOME FOR RAINE. PT VERIFIES AND REQUESTING TO USE CPAP AGAIN. SISTER TO BRING HOME CPAP ON MONDAY, PT TO USE HOSPITAL CPAP FOR NOW. ORDER OBTAINED FROM HOSPITALIST AND ENTERED BY RN. MEDICATED FOR HEADACHE PER EMAR WITH GOOD RESULTS. PT CURRENTLY SITTING UP IN BED EATING DINNER, CALL LIGHT WITHIN REACH. INDEPENDENT IN ROOM.
[2025-04-21 19:38] VITALS: BP 138/70
[2025-04-22 04:26] VITALS: BP 125/76
--- NOTE | 2025-04-22 04:58 | NUR ---
SHIFT SUMMARY: PT AOX4 WITH SOME CONFUSUION. PLESANT, CALLS APPROPRIATLEY, ABLE TO MAKE NEEDS KNOWN, AND IS EASILY REORIENTED. TOLERATING MEDICATIONS WELL. WAS ON 2L NC, THEN PLACED ON CPAP THIS EVENING WHICH SHE TOLERATED WELL WITH 2L OF BLEED IN. NO ACUTE OVERNIGHT EVENTS. PT IN BED SLEEPING, BED IN LOWEST POSITION, CALL LIGHT IN REACH. CONTINUING CARE.
[2025-04-22 06:57] VITALS: BP 128/77
[2025-04-22 15:02] VITALS: BP 124/62
--- NOTE | 2025-04-22 16:43 | NUR ---
SHIFT SUMMARY NO ACUTE CHANGES. A/Ox4. INDEPENDENT IN ROOM. CONTINUES TO SLEEP T/O MAJOIRTY OF DAY. PT REFUSING CPAP DURING DAY, WEARING 2 L/MIN VIA NC TO MAINTAIN O2 SATURATION LEVELS ABOVE 88%. WITHOUT SUPPLEMENTAL PT O2 SATS DROPPING TO 85% ON CONTINUOUS PULSE OX. HEADACHE TREATED PER EMAR - EFFECTIVE. PT CURRENTLY RESTING IN BED AND APPEARS TO BE IN NO DISTRESS. CALL LIGHT IN REACH AND BED IN LOWEST POSITION.
[2025-04-22 19:54] VITALS: BP 135/80
[2025-04-23 03:35] VITALS: BP 126/71
--- NOTE | 2025-04-23 04:53 | NUR ---
SHIFT SUMMARY: PT AOX3-4 SOME CONFUSION. PLEASANT AND FOLLOWS COMMAND, COOPERATIVE IN CARE. REFUSED CPAP. IS SATTING WELL ON 3L OF O2. NO ACUTE OVERNIGHT EVENTS. PT TOLERATING MEDICATIONS WELL. PT IN BED SLEEPING, BED IN LOWEST POSITION, CALL LIGHT IN REACH. CONTINUING CARE.
[2025-04-23 07:24] VITALS: BP 122/55
[2025-04-23] MEDS ORDERED: OxyCODONE 5 mg/Acetamin 325 mg TABLET PO PRN (08:05)
--- NOTE | 2025-04-23 15:09 | NUR ---
SHIFT NOTE MS NEWMAN IS ORIENTATED X4. SHE DOES NEED REMINDERS FOR HOW TO PERFORM SOME SIMPLE TASKS, BUT WAS ABLE TO SHOWER INDEPENDENTLY. SHE SAT UP IN THE CHAIR FOR A WHILE THIS MORNING WITH ENCOURAGEMENT AND NAPPED IN BED THIS AFTERNOON WITH THE CPAP ON. SHE IS ON CONTINUOUS PULSE OX AND HAS BEEN REQUIRING 3L NC O2 MOST OF THE DAY TO KEEP SATS GREATER THAT 90%. SHE IS OFTEN TIRED AND PREFERS TO STAY IN BED, THOUGH ENCOURAGED TO SPEND MORE TIME OUT OF BED. SHE WAS ASSESSSED BY [facility]AFF [facility] WITH A VIEW TO MOVING TOWARDS POSSIBLE DISCHARGE TO THERE NEXT WEEK. BED LOW, CALL LIGHT IN REACH.
--- NOTE | 2025-04-23 15:38 | NUR ---
RN & SECURITY OFFICERS AND GUARDS ENCOURAGED PT TO PERFORM TEETH BRUSHING MULTIPLE TIMES THROUGH OUT DAY. REQUESTED DENTAL HYGENIST TO TALK TO PT ABOUT BRUSHING TEETH THE PT HAS REFUSED BRUSHING TEETH ALL DAY. DENTAL HYGENIST WARNED PT ABOUT RISK OF PNEUMONIA WHEN NOT BRUSHING TEETH.
[2025-04-23 16:05] VITALS: BP 136/72
[2025-04-23 20:14] VITALS: BP 133/69
[2025-04-24 04:26] VITALS: BP 111/57
--- NOTE | 2025-04-24 05:35 | NUR ---
SHIFT SUMMARY PT INDEPENDENT IN ROOM. O2 AT 3L NC WITH CONTINUOUS PULSE OX IN PLACE. CPAP PLACED AT 2300, BUT BY 0100 PT HAD TAKEN IT OFF AND REFUSED TO USE IT THE REST OF THE NIGHT. "I CAN'T SLEEP WITH IT ON". ATTEMPTED TO EDUCATE PT ON IMPORTANCE OF CPAP WITH HER SLEEP APNEA BUT PT STATES, "I WILL USE THE OXYGEN, BUT I DON'T LIKE THAT THING" WHILE POINTING TO THE CPAP. CALL LIGHT WITHIN REACH.
[2025-04-24 07:39] VITALS: BP 114/61
--- NOTE | 2025-04-24 11:38 | NUR ---
RN NOTE MS NEWMAN IS SITTING UP IN CHAIR, FLAT AFFECT, PLEASANT AND AGREEABLE, BUT SHE IS SLEEPY AND WANTING TO LIE IN BED. ENCOURAGED TO SPEND MOST OF THE DAY UP IN THE CHAIR TODAY AND ENCOURAGED TO WALK IN THE HALLS WHICH SHE HAS NOT AGREED TO. SHE IS ORIENTATED X 4 BUT SOMETIMES NEEDS HELP WITH BASIC DECISION MAKING. ENCOURAGED TO USE THE CPAP WHEN DOZING IN THE CHAIR. ENCOURAGED TO USE THE INCENTIVE SPIROMETER, OKAY TECHNIQUE TO 500CC THIS AM, SO FAR BEEN ON ROOM AIR IN THE LOW 90S ON CONTINUOUS PULSE OX.
[2025-04-24 14:37] VITALS: BP 128/69
--- NOTE | 2025-04-24 18:15 | NUR ---
SHIFT SUMMARY MS NEWMAN HAS BEEN ON ROOM AIR WHEN SITTING UP IN THE CHAIR. WHEN LYING IN BED SHE WAS GIVEN THE CHOICE OF SITTING UP OR USING THE CPAP. SHE HAS BEEN OFF OF OXYGEN WHILE AWAKE, OR ON 3L BLEED THROUGH WITH CPAP WHEN SLEEPING. ON CONTINUOUS PULSE OX MONITOR. MS NEWMAN SAID THAT SHE DOES NOT FEEL DEPRESSED BUT THAT IT IS HER HIP AND BACK PAIN THAT IS STOPPING HER FROM DOING MUCH ACTIVITY. SHE WAS ENCOURAGED TO MOVE IN THE HALLS BUT DID NOT. SITTING IN CHAIR FOR SUPPER NOW.
[2025-04-24 19:12] VITALS: BP 152/62
[2025-04-25 03:59] VITALS: BP 122/68
--- NOTE | 2025-04-25 06:17 | NUR ---
SHIFT SUMMARY PT REFUSED TO WEAR CPAP. PER RT, PT SIGNED THE REFUSAL FORM. PT ON 3LNC DURING THE NIGHT WITH CONTINUOUS PULSE OX IN PLACE. PT INDEPENDENT IN ROOM. CALL LIGHT WITHIN REACH.
[2025-04-25 07:09] VITALS: BP 134/64
--- NOTE | 2025-04-25 14:27 | NUR ---
Spiritual Care | Nurse request Came to bedside at the request of the Pts. nurse who was concerned about the Pts. motivation to get better. Pt. welcomed this explosive expert. Facilitated an update where the Pt. verbalized that there are plans to have her transferred to "[facility]" care facility. Listened with interest and a positive tone. This explosive expert sought to encourage the Pt. to be more agressive about her physical therapy. Pt. listened and displayed a level of agreement. Prayed with Pt. Pt. verbalized gratitude for the spiritual life visit(s), and agreed to try to work harder with her PT.
[2025-04-25 15:05] VITALS: BP 139/64
--- NOTE | 2025-04-25 18:50 | NUR ---
SHIFT SUMMARY PT A&OX4, VSS, 3L NC, IND IN ROOM. PT STATED SHE WAS EXHAUSTED FROM GOING TO THE BATHROOM. MED BM TODAY, SISTER TOLD THIS RN THAT SHE SAW A LG BM IN PT TOILET BUT FLUSHED IT. PT INCOURAGED TO WALK IN HALLS BUT REFUSED, STATING FATIGUE. CALL LIGHT IN REACH.
[2025-04-25 19:18] VITALS: BP 127/66
--- NOTE | 2025-04-26 04:44 | NUR ---
SHIFT SUMMARY; PATIENT AWAKE MOST OF THE NIGHT, WATCHING TV. GIVEN ONLY SCHEDULED NEDS.
[2025-04-26 05:24] VITALS: BP 119/68
[2025-04-26 07:01] VITALS: BP 122/72
[2025-04-26 14:52] VITALS: BP 127/69
--- NOTE | 2025-04-26 16:43 | NUR ---
SHIFT SUMMARY PT AOX4, COOPERATIVE, ABLE TO MAKE NEEDS KNOWN. PT IS IND IN ROOM. ON 2-3L O2 CURRENTLY DEPENDING ON NEEDS, ON PULSE OX PER MD. PT WAS REFUSING TO WEAR CPAP, BUT PT REPORTS WILL WEAR WITH ENCOURAGEMENT. TOLERATING MEDICATIONS. PT NEEDS CONSTANT REMINDING OF MEDICAL NEEDS. NO OTHER SIGNIFICANT REPORTS THIS SHIFT. BED IN LOWEST POSITION, CALL LIGHT WITHIN [facility].
[2025-04-26 21:34] VITALS: BP 143/71
[2025-04-27 03:43] VITALS: BP 115/72
--- NOTE | 2025-04-27 06:19 | NUR ---
SHIFT SUMMARY PT ADMITTED FOR UTI. PT IS ALERT AND ORIENTED TIMES 2 . PT TAKES MEDICATION WHOLE WITH WATER. PT IS RECEPTIVE TO CARE. PT IS 2 PERSON TRANSFER TO BEDSIDE COMMODE. PT APPEARS TO HAVE SLEPT ON AND OFF THROUGH THE NIGHT. PT BED IN LOW POSITION, CALL LIGHT WITHIN REACH, RAILS TIMES 2.
[2025-04-27 07:16] VITALS: BP 127/66
[2025-04-27 14:48] VITALS: BP 133/80
--- NOTE | 2025-04-27 14:58 | NUR ---
PT REFUSING TO WEAR CPAP DURING NAPS. REPORTS "THATS ONLY FOR NIGHT TIME" OR "I CANT SEE THE TV WHILE I WEAR IT". THIS RN REINFORCES NEED TO WEAR MASK DURING SLEEP, PT CONSTANTLY REFUSES. O2 SAT 93%
--- NOTE | 2025-04-27 16:19 | NUR ---
SHIFT SUMMARY PT AOX4, SEMI COOPERATIVE, ABLE TO MAKE NEEDS KNOWN. PT IS IND IN ROOM, TOLERATING MEDICATION. THIS RN DID SET UP HOME CPAP IN ROOM. THIS RN DID NOTICE PT NAPPING WITHOUT CPAP, DOCUMENTED IN PREVIOUS NOTE. SUPPOSED TO GO TO [facility] FOR [facility].
[2025-04-28 05:12] VITALS: BP 128/71
[2025-04-28 07:25] VITALS: BP 129/74
[2025-04-28 15:38] VITALS: BP 148/86
--- NOTE | 2025-04-28 19:09 | NUR ---
SHIFT SUMMARY PT IS A/OX4. INDEPENDENT IN THE ROOM. NO ACUTE CHANGES THROUGHOUT THIS SHIFT. ON 2L NC, SATS >92% ON CONT PULSE OX. PT IS PLEASANT AND COOPERATIVE WITH CARE AND CALLS APPROPRIATELY USING THE CALL LIGHT.
[2025-04-28 20:47] VITALS: BP 144/78
[2025-04-29 02:58] VITALS: BP 120/66
--- NOTE | 2025-04-29 04:42 | NUR ---
SHIFT SUMMARY 64 YR F ADMITTED ON 01/21/25. FULL CODE. NO ACUTE CHANGES THIS SHIFT. PT IS PLEASANT AND COOPERATIVE WITH CARE. A&O X 4 AND INDEPENDANT. NO NEW CHANGES TO REPORT. BED IN LOW PSOITION AND CALL LIGHT IN REACH.
[2025-04-29 07:14] VITALS: BP 116/71
[2025-04-29 15:27] VITALS: BP 118/73
[2025-04-29 19:33] VITALS: BP 125/71
--- NOTE | 2025-04-29 19:48 | NUR ---
SHIFT SUMMARY PT IS A/OX4. INDEPENDENT IN THE ROOM. NO ACUTE CHANGES THROUGHOUT THIS SHIFT. LOW MOTIVATION. ON 2L NC, SATS >92% ON CONT PULSE OX. RECIEVING PERCOCET AND TYLENOL FOR PAIN TO THE BACK AND HIPS PER MAR. PT IS PLEASANT AND COOPERATIVE WITH CARE AND CALLS APPROPRIATELY USING THE CALL LIGHT.
[2025-04-30 04:12] VITALS: BP 117/63
--- NOTE | 2025-04-30 04:57 | NUR ---
SHIFT SUMMARY 64 YR F ADMITTED ON 01/21/25. FULL CODE. NO ACUTE CHANGES THIS SHIFT. PT HAS BEEN PLEASANT AND COOPERATIVE WITH CARE. A&O X 4 AND INDEPENDANT. NO NEW CHANGES TO REPORT. BED IN LOW POSITION AND CALL LIGHT IN REACH.
[2025-04-30 07:33] VITALS: BP 123/64
[2025-04-30 15:40] VITALS: BP 136/68
--- NOTE | 2025-04-30 17:40 | NUR ---
SHIFT SUMMARY- PT ALERT AND ORIENTED X3. SHE IS INDEPENDENT IN THE ROOM. SHE DECLINED TO HAVE ASSESSMENT OF HER GROIN FOLDS THIS AM, STATING IT IS SO MUCH BETTER IT DOESNT NEED ANY POWDER. PT HAS HAD NO ACUTE CHANGE T/O THE SHIFT. SHE IS CURREENTLY IN BED, CALL LIGHT IN REACH NO S&S OF DISTRESS NOTED.
[2025-04-30 20:05] VITALS: BP 150/86
[2025-05-01 03:24] VITALS: BP 133/72
--- NOTE | 2025-05-01 04:09 | NUR ---
SHIFT SUMMARY: PT IS AOX4 AND IND IN ROOM. PT VOIDING THROUGH OUT SHIFT. NO ACUTE CHANGES. PLAN IS WAITING ON PLACEMENT.
[2025-05-01 08:02] VITALS: BP 139/81
[2025-05-01 15:09] VITALS: BP 138/73
[2025-05-01 19:28] VITALS: BP 132/68
--- NOTE | 2025-05-01 20:07 | NUR ---
SHIFT SUMMARY- PT ALERT AND ORIENTED TO SELF. NO ACUTE CHANGE T/O THE DAY. STILL AWAITING PLACEMENT.
--- NOTE | 2025-05-02 06:07 | NUR ---
Shift Summary No acute changes, no c/o of pain or discomfort. Pt on 2L O2 NC. She refused CPAP at night because it's uncomfortable. Pt SPO2>90% while NC is on even while asleep, however she took it off a few times during her sleep and would desat down into the low 80s. Cont. O2 monitor in place.
[2025-05-02 07:33] VITALS: BP 129/69
[2025-05-02 16:52] VITALS: BP 146/79
[2025-05-02 19:17] VITALS: BP 129/78
--- NOTE | 2025-05-02 19:51 | NUR ---
SHIFT SUMMARY- PT HAS BEEN SLEEPY T/O THE SHIFT. SHE DECLINED A SHOWER, SHE DECLINED THE OFFERED WALK IN THE HALLS. SHE SAID SHE JUST WANTED TO SLEEP. MID DAY STEPHEN HELD FOR SEDATION . PT IN BED SLEEPING SOUNDLY AT THE TIME OF SHIFT CHANGE. O2 IN PLACE VIA NC, SATS 92% ON BIOX NO S&S OF DISTRESS NOTED.
[2025-05-03 04:49] VITALS: BP 127/71
--- NOTE | 2025-05-03 06:37 | NUR ---
Shift Summary No acute changes, no C/O of pain. Pt refusing CPAP at night. On 2L O2 NC, she desatted twice during the night to low 80's and I would reposition her which would raise SPO2 above 92%. She is AOx4, independent in the room.
[2025-05-03 08:03] VITALS: BP 142/78
--- NOTE | 2025-05-03 14:18 | NUR ---
NOTE PT REPORTS "DIARHEA, HEADACHE, ACHY ALL OVER, FEELS SICK." THIS RN NOTIFIED DR. PACE. DR. PULIDO REPORTED "WILL PUT IN ORDERS." PT GOT PRN SEROQUEL ADMINISTERED BY OTHER RN ON FLOOR. AWAITING DR. HUYNH.
[2025-05-03] MEDS ORDERED: Polyethylene Glycol 3350 17 gm PO PRN (14:55)
[2025-05-03 15:50] VITALS: BP 115/79
--- NOTE | 2025-05-03 18:13 | NUR ---
SHIFT SUMMARY PT A&OX4. PT ADMITTED DUE TO A UTI WHICH HAS RESOLVED. PT INDEPENDENT IN ROOM. VSS. PT REPORTS SOB ALWAYS. PT HAS CONT PULSE OX ON. SPO2 IS 93%. PT WEARS 2 L OF O2 ALWAYS. PT HAS LIDOCAINE PATCH ON BACK DUE TO CHRONIC BACK PAIN. PT REPORTS DIARHEA. HEADACHE, AND ACHY ALL OVER, FEELS SICK. PT REPORTED ANXIETY, RN ON FLOOR GAVE PRN SEROQUEL. ASSESSED PT IN AFTERNOON. PT REPORTS FEELING IMPROVED, PT REF IMMODIUM, STATED GETTING BETTER. PT HAS NO IV ACCESS ORDERS. INCENTIVE SPIROMETER AT BEDSIDE. PT IN BED, BED IN LOWEST POSITION, CALL LIGHT IN REACH.
[2025-05-03 19:35] VITALS: BP 130/78
--- NOTE | 2025-05-04 03:46 | NUR ---
CLOTHES PRESSER SUMMARY VSS. ALERT AND ORIENTED. UP AD SEB IN ROOM. ADMIT DX UTI. ON O2 AT 2L/NC (BASE). HEART HEALTHY DIET. CONTINENT. ABLE TO RESPOSITION SELF IN BED BY SELF FOR COMFORT. COOPERATIVE WITH CARE. HAS BEEN RESTING WITH FEW INTERRUPTIONS. CALL LIGHT IN REACH, RAILS UP X 2 AND BED IN LOW POSITION FOR SAFETY. WILL CONTINUE TO MONITOR
[2025-05-04 04:39] VITALS: BP 117/64
[2025-05-04 07:43] VITALS: BP 111/57
[2025-05-04 15:39] VITALS: BP 146/72
--- NOTE | 2025-05-04 16:48 | NUR ---
SHIFT SUMMARY PT A&OX4. FORGETFUL AT TIMES. PT ADMITTED DUE TO A UTI WHICH HAS RESOLVED. PT INDEPENDENT IN ROOM. VSS. PT REPORTS SOB ALWAYS. PT HAS CONT PULSE OX ON. SPO2 IS 94%. PT WEARS 2 L OF O2 ALWAYS. PT HAS LIDOCAINE PATCH ON BACK DUE TO CHRONIC BACK PAIN. PAIN MANAGED PER EMAR. PT REPORTS LAST BM LAST NIGHT. PT REPORTS FEELS IMPROVED FROM YESTERDAY. PT HAS NO IV ACCESS ORDERS. INCENTIVE SPIROMETER AT BEDSIDE. PT IN BED, BED IN LOWEST POSITION, CALL LIGHT IN REACH.
[2025-05-04 19:26] VITALS: BP 104/55
[2025-05-05 02:48] VITALS: BP 110/49
--- NOTE | 2025-05-05 05:02 | NUR ---
SHIFT SUMMARY CONTINUED DISCHARGE PLANNING ISSUES. GUARDIAN PAPERWORK IN CHART, PENDING GUARDIANSHIP, AND SENIOR CARE CARE PLACEMENT. CARE MANAGEMENT AND POA, CAROLYN IN CONTACT. PT ATTEMPTED CPAP THIS EVENING, DID NOT TOLERATE WELL AND REMOVED. MAINTAINED >89% SPO2 ON BASELINE 2L NC THIS EVENING. NO FURTHER PSYCHOTIC FEATURES OR HALLUCINATIONS THIS EVENING CONTINUING OLANZAPINE AND SEROQUEL. NO RECURRENT URINARY SYMPTOMS, NO N/V. HELD SENOKOT D/T PT REPORTED LOOSE BMS. PT REMAINS INDEPENDENT IN ROOM, EATING AND DRINKING WELL.
[2025-05-05 07:30] VITALS: BP 119/67
[2025-05-05 15:29] VITALS: BP 127/75
--- NOTE | 2025-05-05 18:20 | NUR ---
SHIFT SUMMARY NO ACUTE CHANGES THIS SHIFT, VSS, MEDICATED X1 FOR C/O FACE PAIN (RELIEVED W/PERCOCET X1, EATING DINNER AT THIS TIME, CALL LIGHT IN REACH, ABLE TO MAKE NEEDS KNOWS.
[2025-05-05 19:49] VITALS: BP 135/79
[2025-05-05] MEDS ORDERED: FLU VACC TS2025-26(6MOS UP)/PF 45 MCG/0.5 ML SYRINGE IM SCH (21:35)
[2025-05-06 04:51] VITALS: BP 117/65
--- NOTE | 2025-05-06 05:12 | NUR ---
SHIFT SUMMARY PT HAS DEVELOPED MILD R>L JAW ARTHRALGIA THIS AFTERNOON, SOME INCREASED PAIN W/SWALLOW. NO DENTITION COMPLAINTS, NO NOTED SWELLING OR LYMPHADENOPATHY APPRECIATED BY THIS RN. IMPROVES WELL WITH PERCOCET GIVEN FOR CHRONIC PAIN OF LOW BACK. BRIEF NAUSEA IMPROVES WITH WARM MINT TEA, HONEY, AND ODT ZOFRAN. PT TO REQUEST FLU SHOT IN AM IF JAW + NAUSEA SYMPTOMS DO NOT RECUR. AWAITING ACCOUNTING MACHINE OPERATOR CARE PLACEMENT. PT ABLE TO MAKE NEEDS KNOWN. INDEPENDENT IN ROOM. NO IV ACCESS REQUIRED. CONTINUOUS PULSE OX >92% THIS EVENING ON BASELINE 2L NC. DID NOT ATTEMPT CPAP THIS EVENING. PT PAIN WELL-CONTROLLED WITH NON-PHARMACOLOGIC INTERVENTIONS WELL PHARMACOLOGICS
[2025-05-06 07:31] VITALS: BP 110/56
--- NOTE | 2025-05-06 15:37 | NUR ---
ADMIT REPORT RECEIVED FROM ER. PT ARRIVED VIA [facility] TALKING RAPIDLY. 1:1 IN ATTENDANCE. PT HAS HOLD ORDERS. HE IS IN AGREEMENT TO STAY. HE AGREED TO HAVE A PICTURE OF HIS RIGHT INDEX FINGER TAKEN. PT INDEPENDANT IN ROOM. CHAPLAIN HINKLE CALLED TO REQUEST A BIBLE FOR PT AT HIS REQUEST. CARE ON GOING.
[2025-05-06 16:35] VITALS: BP 115/62
--- NOTE | 2025-05-06 16:53 | NUR ---
Spiritual Care Visit. Pt. had just awken from a hard nap when she welcomed my visit. Pt. displayed evidence of cloudy thihking though it is possible that was because she was freshly awake. Facilitated an update, but the Pt. did not have any news about her plan of care. Listened with empathy and a calming presence as well as seeking to normalize the Pt. experience. Prayed with Pt. Will remain available to the Pt.
--- NOTE | 2025-05-06 17:56 | NUR ---
NOTE PT RESTING. SHE RECEIVED THE FLU VACCINE THIS MORING. SHE'S FEELING ACHI AND SORE. RESTING MOST OF THE DAY. UP AD SEB IN HER ROOM. EATING/DRINKING WELL. VSS. CARE ONGOING.
[2025-05-06 19:32] VITALS: BP 126/74
--- NOTE | 2025-05-07 04:15 | NUR ---
SHIFT SUMMARY PT IS A&OX3-4 HAS OCCASIONAL CONFUSION, PT IS PLEASANT AND COOPERATIVE WITH CARE. PT IS INDEPENDENT IN ROOM, TOLERATING PO INTAKE, AND ABLE TO MAKE NEEDS KNOWN. PT IS ON 4L NC AT THIS TIME DUE TO DESATTING TO 70's-80's DURING SLEEP. PT SLEPT T/O SHIFT WITH EVEN AND UNLABORED RESPIRATIONS. NO ACUTE CHANGES T/O SHIFT. CALL LIGHT WITHIN REACH OF PT, BED IS IN THE LOWEST POSITION.
[2025-05-07 04:17] VITALS: BP 94/53
[2025-05-07 07:28] VITALS: BP 115/74
[2025-05-07] MEDS ORDERED: Polyethylene Glycol 3350 17 gm PO SCH (09:00)
[2025-05-07 16:09] VITALS: BP 131/63
--- NOTE | 2025-05-07 18:00 | NUR ---
PATIENT A/O X3-4, FORGETFUL AT TIMES. REFUSED TO GET UP FOR MEALS THIS SHIFT. PEROCET GIVEN TO TREAT "ALL OVER" PAIN AND LIDOCAINE PATCH IN PLACE TO LOWER BACK. AWAITING MEDICAID APPROVAL FOR LTC PLACEMENT. REMAINS ON 2-4LO2. NO ACUTE CHANGES THIS SHIFT.
[2025-05-07 19:51] VITALS: BP 128/66
[2025-05-08 04:15] VITALS: BP 119/81
--- NOTE | 2025-05-08 05:20 | NUR ---
SHIFT SUMMARY NOC PT A/O X 4. FORGETFUL AT TIMES, BUT PLEASANT AND COOPERATIVE WITH CARE. VSS. PT PAIN BEING MANAGED PER EMAR, PT REQUIRED ONE TIME DOSE OF OXYCODONE 5 MG FOR BREAKTHROUGH PAIN. PT ON 2-4L/NC FOR SLEEP APNEA. PT HAS BE[facility] AND IS AWAITING [facility] MEDICAID AUTHORIZATION. PT CURRENTLY RESTING WITH BED IN LOWEST POSITION, AND CALL LIGHT WITHIN REACH.
[2025-05-08 07:11] VITALS: BP 122/76
[2025-05-08 15:06] VITALS: BP 154/83
--- NOTE | 2025-05-08 17:43 | NUR ---
NO ACUTE CHANGES THIS SHIFT. PATIENT INDEPENDENT IN ROOM AND DISCUSSED GETTING MORE ACTIVITY IN BY WALKING THE HALLS. 3LO2 TO MAINTAIN SATS THIS SHIFT. TOLERATING HEART HEALTHY DIET. VSS. OXYCODONE AND TYLENOL USED TO TREAT PAIN. PATIENT IS PLEASANT AND COOPERATIVE AND CALLS APPROPRIATELY FOR ASSISTANCE.
[2025-05-08 20:31] VITALS: BP 143/87
--- NOTE | 2025-05-09 04:23 | NUR ---
SHIFT SUMMARY NOC PT A/O X 4. FORGETFUL AT TIMES, BUT PLEASANT AND COOPERATIVE WITH CARE. VSS. NO ACUTE CHANGES TO REPORT. CHRONIC BACK PAIN BEING MANAGED PER EMAR. PT STILL ON 2-4L/NC FOR SLEEP SPO2 >92%, BUT DESATS INTO HIGH 70'S WHEN O2 REMOVED. PT WAITING ON LTC MEDICAID AND HAS BEEN ACC[facility]PT[facility]. PT CURRENTLY RESTING WITH BED IN LOWEST POSITION, AND CALL LIGHT WITHIN REACH.
[2025-05-09 04:56] VITALS: BP 118/74
[2025-05-09] MEDS ORDERED: Polyethylene Glycol 3350 17 gm PO PRN (10:50)
[2025-05-09 15:31] VITALS: BP 145/91
--- NOTE | 2025-05-09 17:13 | NUR ---
Spiritual Care Visit. Pt. is awake and watching television when she welcomed my visit. Pt. is pleasant, but unsettled about waiting for what she verbalized as "her place [facility]" to open. Listened with empathy and pastoral care is given to encourage contentment and trust in the things she cannot control and to use her energy to focus on what she can. pt. verbalized understanding and agreement. Pryaed with the Pt. Pt. verbalized gratitude for the spiritual care visit.
--- NOTE | 2025-05-09 18:40 | NUR ---
NO ACUTE CHANGES THIS SHIFT, PATIENT UP IN CHAIR FOR MEALS THIS SHIFT, REFUSED WALKING IN HALLS. VSS, ON 2-4 LO2 TO MAINTAIN SATS. AWAITING MEDICAID APPROVAL AND PLACEMENT AT [facility]. NO NEW CONCERNS THIS SHIFT.
[2025-05-09 19:14] VITALS: BP 140/73
[2025-05-10 02:50] VITALS: BP 136/69
--- NOTE | 2025-05-10 04:27 | NUR ---
SHIFT SUMMARY: PT IS AOX4. INDEPENDENT IN ROOM. PT REFUSED HER CPAP TONIGHT AND REMAINED ON 3L O2 WHILE ASLEEP. SpO2 MAINTAINED >93%. NO BM THIS SHIFT. PT DENIES ANY HALLUCINATIONS OR DELUSIONS. CALL LIGHT IS WITHIN REACH. BED IS LOW AND LOCKED.
[2025-05-10 07:23] VITALS: BP 128/67
--- NOTE | 2025-05-10 15:54 | NUR ---
PT A/Ox4. INDEPENDENT IN ROOM. PLEASANT AND COOPERATIVE WITH CARE. PAIN AND NAUSEA TX PER EMAR. REPORTED NO BM TODAY. PT GOT OUT OF BED TO CHAIR TODAY FOR APPOX 30 MINUTES. EDUCATION WAS PROVIDED ON THE IMPORTANCE OF SHIFTING POSITIONS AND AMBULATION, PT VERBALIZED UNDERSTANDING. PT REMAINS ON 3L O2 NC SATTING ABOVE 93%.
[2025-05-10 19:23] VITALS: BP 154/85
[2025-05-11 04:07] VITALS: BP 120/46
--- NOTE | 2025-05-11 05:57 | NUR ---
SHIFT SUMMARY PATIENT A/O X4- PLEASANT AND COOPERATIVE WITH CARE. VITAL SIGNS STABLE. ON 3L VIA NC WITH SATS ABOVE 90%. RESTED WELL THROUGHOUT THE NIGHT. BED IN LOWEST POSITION, USING CALL LIGHT APPROPRIATELY. WILL REPORT TO DAY SHIFT RN.
[2025-05-11 07:15] VITALS: BP 148/90
[2025-05-11 15:00] VITALS: BP 134/81
--- NOTE | 2025-05-11 18:03 | NUR ---
PT A/OX4. PAIN HAS BEEN TX PER EMAR. PT AMBULATED TO THE ELEVATORS AND BACK THIS AFTERNOON W/STAFF ASSIST AND FWW, PT TOLERATED IT WELL. PT EDUCATED ON IMPORTANCE OF CHANGING POSITONS TO PREVENT SKIN BREAKDOWN, PT VERBALIZED UNDERSTANDING. INDEPENDENT IN ROOM. USES CALL LIGHT APPROPRIATELY.
[2025-05-11 19:19] VITALS: BP 128/69
[2025-05-12 02:59] VITALS: BP 111/66
--- NOTE | 2025-05-12 05:00 | NUR ---
SHIFT SUMMARY PATIENT A/O X4- PLEASANT AND COOPERATIVE WITH CARE, IND IN THE ROOM. CURRENTLY ON 4L VIA NC TO KEEP OXYGEN SATURATIONS ABOVE 90%. NO SOB REPORTED. PATIENT VOIDING WELL AND REPORTS NO BM TODAY. NO PAIN REPORTED. PT SLEPT MOST OF THE NIGHT. NO ACUTE CHANGES, BED IN LOWEST POSITION AND CALL LIGHT IN REACH. WILL REPORT TO DAYSHIFT RN.
[2025-05-12 07:52] VITALS: BP 130/69
--- NOTE | 2025-05-12 18:48 | NUR ---
SHIFT SUMMARY PATIENT IS A&OX4. SHE IS ON 2L OF O2 VIA NASAL CANNULA, WHICH IS HER BASELINE. MEDICATED X1 TIME TODAY FOR RIGHT FLANK PAIN. SHE IS SBA, CONTINENT. NO ACUTE EVENTS THIS SHIFT.
[2025-05-12 19:17] VITALS: BP 125/69
[2025-05-13 04:36] VITALS: BP 119/56
--- NOTE | 2025-05-13 06:25 | NUR ---
SHIFT SUMMARY A/O X4- IND IN THE ROOM. ON 2L VIA NC AND TURNED UP TO 4L AT NIGHT TO KEEP OXYGEN SATURATION ABOVE 90%. PATIENT NON-COMPLIANT WITH CPAP. VITAL SIGNS STABLE. VOIDING WELL. REDNESS UNDER BREASTS TREATED WITH MICONAZOLE PER EMAR. NO ACUTE EVENTS. BED IN LOWEST POSITION, CALL LIGHT IN REACH. WILL REPORT TO DAY SHIFT RN.
[2025-05-13 07:25] VITALS: BP 123/67
[2025-05-13 08:32] VITALS: BP 130/79
[2025-05-13 09:00] VITALS: BP 130/79
--- NOTE | 2025-05-13 09:00 | NUR ---
AT 0830 I WITNESSED THE PT HAVE A FALL IN THE DOORWAY. I RECENTLY ROUNDED ON PT AT 0825 AND PT WAS IN THE BATHROOM. I SAW THE PT WALKING TO THE DOOR USING HER WALKER AND SHE TRIPED OVER HER FEET. SHE HIT HER RIGHT SIDE ON THE DOOR. DID NOT HIT HEAD. MY NURSE AND I SAT THE PT UP AND TOOK A SET OF VITALS. GOT THE LIFT TO GET THE PT UP AND BACK INTO BED. I PUT HER OXYGEN BACK ON AND SET THE BED ALARM. CALL LIGHT IN REACH AND EDUCATED THE PT TO CALL BEFORE GETTING UP.
--- NOTE | 2025-05-13 10:49 | NUR ---
Spiritual Care Visit Pt. si awake in bed when she welcomes my visit. Pt. verbalizes that she had experienced a ground livel fall while using her walker. Listen with emapthy and a calming presence. Pt. verbalized new pain in her lower back. Pt. displayed evidence of mild distress. Pastoral care and prayer is given. Pt. verbalized gratitude for the spiritual care visit.
--- NOTE | 2025-05-13 13:53 | NUR ---
0830- THIS RN WAS IN ROOM 349 WHEN A FALL WAS HEARD COMING FROM ROOM 353. CLAUDIA LÓPEZ WITNESSED THE FALL FROM THE HALLWAY. PT FELL ON HER RIGHT SIDE AND DID NOT HIT HER HEAD. VITALS TAKEN AND ALL WNL. PT REMOVED OFF OF THE FLOOR BY THE LIFT. PT COMPLAINING OF RIGHT HIP PAIN 03/09. THIS RN ASKED PT IF HER HIP HURT PRIOR TO THE FALL AND PT STATED, "YES, A 02/06 BEFORE." MD PACE NOTIFIED. NO NEW ORDERS. SISTER NOTIFIED, CHARGE NURSE BÁRBARA NOTIFIED, AND PLASTICS SEASONER OPERATOR NOTIFIED. PT STATED SHE WAS AMBULATING BACK FROM THE BATHROOM AND HER "FEET GOT TRIPPED UP" AND SHE FALL WITH HER WALKER.
[2025-05-13 15:28] VITALS: BP 129/72
--- NOTE | 2025-05-13 19:36 | NUR ---
SUMMARY- AAOX3. PT ON 2L. X1 ASSIST WITH WALKER AND GAIT BELT. PAIN WELL CONTROLLED WITH EMAR PAIN MEDS. NO ISSUES WITH PATIENT POST FALL THIS SHIFT. PT CALM AND COOPERATIVE WITH CARE.
[2025-05-13 19:46] VITALS: BP 142/76
[2025-05-14 03:55] VITALS: BP 146/82
--- NOTE | 2025-05-14 07:10 | NUR ---
FLORAL DESIGNER SALESPERSON SUMMARY PT A&OX4, VSS. PLEASANT AND COOPERATIVE W/ CARE. ABLE TO MAKE NEEDS KNOWN WELL. PT HAS BEEN ASLEEP FOR MOST OF THE NIGHT. CHEST RISE/RESPIRATIONS NOTED. UP INTERMITTENTLY W/ 1PA FWW AND GB TO RESTROOM. NO IV PER ORDER. NO NEEDS AT THIS TIME. BED RAILS UP X 2, BED IN LOWEST POSITION, BED WHEELS LOCKED, PERSONAL BELONGINGS AND CALL LIGHT WITHIN REACH FOR SAFETY.
[2025-05-14 07:23] VITALS: BP 126/67
[2025-05-14 15:55] VITALS: BP 148/79
--- NOTE | 2025-05-14 18:15 | NUR ---
PATIENT ALERT AND COOPERATIVE WITH CARE. PATIENT ABLE TO EXPRESS NEEDS AND USES CALL LIGHT APPROPRIATLEY. PATIENTS FRIEND HAD CONCERNS ABOUT PATIENT TAKING OXYCODONE STATING THE PATIENT HAD AN ADDICTION TO THE MEDICATION AND FELT THAT IS WHAT BROUGHT PATIENT TO HOSPITAL IN THE FIRST PLACE. FRIEND THEN CALLED PATIENTS ADVOCATE AND EXPRESSED CONCERN. THIS RN RECEIVED A CALL FROM DANYA (PT ADVOCATE) EXPRESSING HER CONCERN NOW FOR NARCOTICS AND PATIENT. DANYA WOULD LIKE A PHONE CALL FROM MD IF POSSIBLE TO EXPRESS CONCERNS AND POTENTIAL FOR JUST GIVING PATIENT TYLENOL OR IBUPROFEN. CALL LIGHT WITHIN REACH.
[2025-05-14 20:21] VITALS: BP 158/93
--- NOTE | 2025-05-15 04:54 | NUR ---
SHIFT SUMMARY PT ALERT ORIENTED X 4 ABLE TO VERBALIZE NEEDS GETS UP AND AMBULATES TO BATHROOM WITH 1 PERSON SBA AND WALKER. C/O GENERAL PAIN TAKING PERCOCET AND TYLENOL FOR PAIN CONTROL. REMAINS ON A CONTINUOUS PULSE OX. VSS SATTING AT 93% ON 2L. AWAITING PLACEMENT. SHE HAD A FALL ON 05/13 WITH NO INJURIES. PT RESTING IN BED AT THIS TIME WITH CALL LIGHT IN REACH
[2025-05-15 04:55] VITALS: BP 136/78
[2025-05-15 07:28] VITALS: BP 128/81
[2025-05-15] MEDS ORDERED: HYDROcodone 5-APAP 325 TAB PO PRN (14:50)
[2025-05-15 15:16] VITALS: BP 135/76
--- NOTE | 2025-05-15 17:39 | NUR ---
SHIFT SUMMARY; PT A/O X3 (PLACE, SELF, SITUATION), CALLS APPROPRIATELY, AND SEEN MOSTLY AT BEDREST. PT MEDICATED WITH TYLENOL FOR REPORTED 7/10 HEADACHE AND GENERALIZED PAIN. NAUSEA ALSO REPORTED BY THE PATIENT. ZOFRAN GIVEN ODT. PT REPORTS IMPROVEMENT IN HER SXS. PT BECAME ANXIOUS MID WAY THROUGHOUT SHIFT. SEROQUEL GIVEN PER EMAR. LUNGS SOUNDS ASCULTATED WITH L SIDED EXPIRATORY WHEEZE AND DIMINISHED BREATH SOUNDS IN THE R BASES. CONTINOUS PULSE O2 READING BETWEEN 93-94% THROUGH SHIFT. VSS. CALL LIGHT WITHIN REACH AND BED IN LOW POSITION.
--- NOTE | 2025-05-15 18:33 | NUR ---
THIS CROSS COUNTRY/TRACK AND FIELD COACH HAS REVIEWED AND AGREES WITH ALL NOTES AND ASSESSMENTS BY DAVID MCDERMOTT.
[2025-05-15 19:36] VITALS: BP 144/87
[2025-05-16 04:00] VITALS: BP 101/58
--- NOTE | 2025-05-16 04:05 | NUR ---
SHIFT SUMMARY PT ALERT ORIENTED X 4 ABLE TO VERBALIZE NEEDS GETS UP TO BATHROOM WITH 1 PERSON SBA AND WALKER. C/O GENERALIZED PAIN. REMAINS ON PRN PAIN MEDS. SHE SLEPT MOST OF THE NIGHT. SHE DESATS WHILE SLEEPING. REMAINS ON 2 L VIA NC. VSS. AWAITING PLACEMENT. SHE DOES HAVE ANXIETY AND CONFUSION AT TIMES. REMAINS ON A CONTINUOUS PULSE OX SATTING AT 93%. RESTING IN BED AT THIS TIME WITH CALL LIGHT IN REACH AND BED ALARM ON.
[2025-05-16 07:13] VITALS: BP 118/68
[2025-05-16 15:27] VITALS: BP 131/78
--- NOTE | 2025-05-16 17:38 | NUR ---
THIS NOTCHED BLADE LOADER HAS REVIEWED AND AGREES WITH ALL NOTES AND ASSESSMENTS BY DAVID MCDERMOTT.
--- NOTE | 2025-05-16 17:48 | NUR ---
SHIFT SUMMARY; PT A/OX3 (PERSON, SELF, PLACE), AMBULATES W/ SBA TO RESTROOM, AND PLEASANT. PT DENIES NAUSEA TODAY, HOWEVER EXPERIENCES GENERAL PAIN AND A HEADACHE. PT MEDICATED PER EMAR. UPON ASSISTING PT TO RESTROOM, NOTED THAT HER URINE HAD STRONG FOUL SMELL. PT DENIES DYSURIA/FREQUENCY. PT REMAINS ON 2 L O2 NC WITH O2 AT 92% THROUGHOUT THE SHIFT. VSS. CALL LIGHT WITHIN REACH. BED IN LOW POSITION.
--- NOTE | 2025-05-16 17:57 | NUR ---
THIS SAP CRM DEVELOPER HAS REVIEWED AND AGREES WITH ALL NOTES AND ASSESSMENTS BY DAVID MCDERMOTT.
[2025-05-16 19:48] VITALS: BP 130/73
[2025-05-17 03:34] VITALS: BP 112/69
--- NOTE | 2025-05-17 04:15 | NUR ---
SHIFT SUMMARY PT ALERT ORIENTED X 4 ABLE TO VERBALIZE NEEDS GETS UP AND AMBULATES TO BATHROOM WITH 1 PERSON SBA AND WALKER. C/O GENERAL PAIN REMAINS ON PRN PAIN MEDS ORDERED. VSS ON 2L OF O2 SATTING AT 92%. REMAINS ON A CONTINUOUS PULSE OX. AWAITING PLACEMENT. RESTING IN BED AT THIS TIME WITH CALL LIGHT IN REACH AND BED ALARM ON
[2025-05-17 07:05] VITALS: BP 116/68
[2025-05-17 15:36] VITALS: BP 137/74
--- NOTE | 2025-05-17 17:44 | NUR ---
End of shift summary: Patient is alert and oriented x4; pleasant and cooperative with care; mild anxiety today. Patient with c/o upset stomach and new rx for Tums received and started with good relief. Patient denies SOB, CP or pressure, N/V/D and only mild headache. All medications administered per EMAR. Patient with continued use of Oxygen at 2L via NC. Patient up with assist and use of walker to BR today. No significant changes this shift. Call light within reach, bed in lowest position and alarm on for safety. Will continue to monitor until next shift nurse arrives and report is given.
[2025-05-17 19:24] VITALS: BP 131/65
[2025-05-18 03:54] VITALS: BP 151/89
--- NOTE | 2025-05-18 05:29 | NUR ---
SHIFT SUMMARY NOC PT A/O X 4. PLEASANT COOPERATIVE WITH CARE. VSS. NO ACUTE CHANGES TO REPORT. PT SLEPT FOR MAJORITY OF SHIFT, AND WOKE UP A FEW TIMES FOR SOME SNACKS. PT HAD NO C/O OF ABD/FLANK PAIN, AND NO C/O OF INDIGESTION. PT STILL ON 2-4L/NC FOR SLEEPING SPO2 >92% ON BIOX. PT HAS BEEN ACCEPTED [facility] AND IS WAITING ON LT MEDICAID AUTHORIZATION. PT CURRENTLY RESTING WITH BED IN LOWEST POSITION, AND CALL LIGHT WITHIN REACH.
[2025-05-18 07:19] VITALS: BP 123/71
[2025-05-18 15:21] VITALS: BP 123/67
--- NOTE | 2025-05-18 18:07 | NUR ---
End of shift summary: Patient is alert and oriented x3; pleasant and cooperative with care; small anxiety this afternoon noted and voiced. All medications administered per EMAR. No acute changes this shift. Patient denies CP or pressure, N/V/D, SOB except with exertion and only mild EDEN. Bed in lowest position, call light within reach. Will continue to monitor until next shift nurse arrives and report is given.
[2025-05-18 20:03] VITALS: BP 140/84
--- NOTE | 2025-05-19 04:09 | NUR ---
SHIFT SUMMARY NOC PT A/O X 4. PLEASANT AND COOPERATIVE WITH CARE. VSS. NO ACUTE CHANGES TO REPORT. MEDICATIONS GIVEN PER EMAR. ON 2-4L/NC CONTINOUS, SPO2 >92%. PT HAD C/O OF ABD/FLANK PAIN WHICH IS NOT NEW AND GIVEN PAIN MEDICATION PER EMAR. PT WAITING ON LTC MEDICAID AUTHORIZTION AND HAS BEEN ALREADY ACCEPTED AT [facility]. PT CURRENTLY RESTING WITH BED IN LOWEST POSITION, AND CALL LIGHT WITHIN REACH.
[2025-05-19 04:45] VITALS: BP 128/72
[2025-05-19 07:08] VITALS: BP 129/74
--- NOTE | 2025-05-19 09:00 | NUR ---
pt sitting up on the side of the bed eating breakfast, a/ox4, pleasant and cooperative with care, calm, follows commands well, denies pain, states she's doing good, lungs are clear, dim in bases, resp even and unlabored, no cough noted, hrr, trace edema noted to b/l annette, ppp+1, has two pairs of socks on, cap refill<3 sec, vs stable, afebrile, btx4, abd flat soft nontender, voids without diff, skin c/w/d, except a bit of yeast rash under breasts, maew, ambulates with walker, michael, call light in reach.
[2025-05-19 15:01] VITALS: BP 140/78
--- NOTE | 2025-05-19 18:43 | NUR ---
no acute changes this shift, pt has remained calm and cooperative throughout the shift, call light in reach.
[2025-05-19 20:18] VITALS: BP 150/77
[2025-05-20 04:56] VITALS: BP 135/67
--- NOTE | 2025-05-20 05:12 | NUR ---
AUTOMOBILE UPHOLSTERER APPRENTICE SUMMARY THE PATIENT ENDORSES FEELING VERY WEAK AND DEPRESSED. PT FEELS SHE DOES NOT HAVE THE ENERGY TO EVEN SHOWER AND FEARS FALLING. NOTED PT HAS VERY YEASTY ODOROUS RASH UNDER BREAST. ENCOURAGED PT NEED FOR PROPER HYGIENE. PT AGREEABLE TO SPONGE BATH AREA UNDER BREAST. POWDER THEN APPLIED. PT GIVEN NORCO FOR BACK PAIN 1X. CALL LIGHT ACCESSIBLE. PT ABLE TO MAKE NEEDS KNOWN.
[2025-05-20 07:39] VITALS: BP 132/72
[2025-05-20 14:59] VITALS: BP 137/91
[2025-05-20 19:47] VITALS: BP 140/86
--- NOTE | 2025-05-21 04:07 | NUR ---
SHIFT SUMMARY: PT AOX4 AND IND IN ROOM. PT SLEEPING THROUGH THIS SHIFT AND ABLE TO MAKE ANY NEEDS KNOWN. NO ACUTE CHANGES.
[2025-05-21 06:03] VITALS: BP 147/73
[2025-05-21 07:40] VITALS: BP 123/66
[2025-05-21 15:16] VITALS: BP 118/63
[2025-05-21 20:26] VITALS: BP 148/78
--- NOTE | 2025-05-22 05:33 | NUR ---
SHIFT SUMMARY ADMITTED FOR UTI, NOW RESOLVED. FULL CODE. PLAN IS FOR PLACEMENT, AWAITING LT MEDICAID APPROVAL. ON 2 LPM O2 DURING THE DAY, ON 4 LPM O2 @ HS. CARDIAC DIET. 1 ASSIST W/FWW. PALLIATIVE CARE IS CONSULTED. PSYCHIATRIC CONSULT IS DR. WATKINS. A&O X3-4. PLEASANTLY COOPERATIVE WITH CARE THIS SHIFT. HX: SCHIZOAFFECTIVE DISORDER. 1 ASSIST W/FWW.
[2025-05-22 08:04] VITALS: BP 137/76
--- NOTE | 2025-05-22 13:16 | NUR ---
NOTE PT REPORTS HAVING BM A NIGHT AGO. NOT SURE IF TRUE, JENNIFER DYSON ENCOURAGED BOWEL CARE. PT REF AM BOWEL CARE MEDS. THIS RN EDUCATED PT ON BOWEL CARE. PT REPORTED "WILL TAKE MIRALAX. BUT NOT COLACE."
[2025-05-22 15:52] VITALS: BP 148/82
--- NOTE | 2025-05-22 18:27 | NUR ---
SHIFT SUMMARY PT A&O3-4. PT ADMITTED DUE TO UTI, WHICH HAS RESOLVED. AWAITING PLACEMENT. PT HAS NO IV ORDER. FRIEND AT BEDSIDE TODAY. PT ENCOURAGED TO HAVE MORE MOBILITY. PT VSS. PT ON 4L OF O2 VIA N/C. SPO2 93% CONT PULSE OX ON. PT REPORTS SOB ALWAYS. PT 1 ASSIST W FWW. PT IN BED, BED IN LOWEST POSITION, CALL LIGHT IN REACH. HX: SCHIZOAFFECTIVE DISORDER.
[2025-05-22 19:23] VITALS: BP 131/76
--- NOTE | 2025-05-23 04:26 | NUR ---
SHIFT SUMMARY ADMITTED FOR UTI, NOW RESOLVED. FULL CODE. AWAITING MEDICAID APPROVAL FOR LTC PLACEMENT. ON RA, 1 ASSIST W/FWW. A&O X3. PALLIATIVE CARE IS CONSULTED. PSYCHIATRIC CONSULT IS DR. WATKINS. 4 LPM O2 VIA NC AT HS, ON 2 LPM O2 VIA NC DURING DAY. ON CARDIAC DIET. BOWEL CARE GIVEN. NO NEW CONCERNS THIS SHIFT.
[2025-05-23 07:37] VITALS: BP 127/78
[2025-05-23 14:56] VITALS: BP 152/82
--- NOTE | 2025-05-23 17:55 | NUR ---
SHIFT SUMMARY PT A&O3. PT REPORTED BEING AT [facility] IN [place]. PT ADMITTED DUE TO UTI, WHICH HAS RESOLVED. AWAITING PLACEMENT. BOWEL MEDS GIVEN. PT REPORTS CHRONIC SOB, CONT PULSE OX ON, SPO2 IS 93%.PT ON 2L OF O2 VIA N/C. PT REPORTS NO CHEST PAIN. PT REPORTS PAIN ON R SIDE/BACK, LIDOCAINE PATCH APPLIED THIS AM. PT MEDICATED PER EMAR FOR PAIN. PT HAS NO IV ORDER. PT 1 ASSIST WITH FWW. THIS RN ENCOURAGED PT TO HAVE MOBILITY. PT WALKED UP AND DOWN THE WHITTEN TWICE WITH ASSISTANCE, PT TOOK SHOWER, AND UP IN CHAIR TODAY. PT NOW IN BED, BED IN LOWEST POSITION, LOCKED, CALL LIGHT IN REACH. HX:SCHIZOAFFECTIVE DISORDER.
[2025-05-23 19:58] VITALS: BP 151/77
[2025-05-24 04:05] VITALS: BP 127/68
--- NOTE | 2025-05-24 06:49 | NUR ---
SHIFT SUMMARY A&OX4. ABLE TO MAKE NEEDS KNOWN. WEARING O2 VIA NC CURRENTLY AT 3 LPM DUE TO O2 SATS DROPPING INTO HIGH 70'S WHILE SLEEPING. O2 SATS HAVE REMAINED AT 93%. PT SLEPT WELL DURING THE NIGHT. PT EDUCATED ON SKIN CARE AND KEEPING AREA UNDER BREASTS DRY AND REPOSITIONING OFF OF LEFT SIDE TO ALLOW AIR FLOW. PT V/U. CURRENTLY PT IS SLEEPING IN BED AT LOWEST POSITION WITH CALL LIGHT WITHIN REACH.
[2025-05-24 07:46] VITALS: BP 131/70
--- NOTE | 2025-05-24 11:13 | NUR ---
CPAP REFERRED R/T. FOUND PT CPAP IN ROOM. R/T FITTED PT FOR A NEW MASK. ENCOURAGED PT TO WEAR DURING THE DAY TO HELP WITH COMFORT. PT AGREED. CURRENTLY WEARING HER CPAP WITH 4L N/C BLEED IN. SAT 91%. CARE ONGOING.
[2025-05-24 15:38] VITALS: BP 118/62
--- NOTE | 2025-05-24 16:58 | NUR ---
NOTE PT AWAKE AND UP AT BEDSIDE. SHE WAS ABLE TO TOLERATE HER CPAP FOR THE MORNING. VSS. 3L O2-92%. LUNGS DECREASED T/O. MEDICATED FOR PAIN X1. PT UP WITH FWW. GAIT STEADY. BED LOW AND LOCKED. CALL LIGHT WITH INREACH. CARE ONGOING.
[2025-05-24 20:22] VITALS: BP 129/78
--- NOTE | 2025-05-25 05:12 | NUR ---
SHIFT SUMMARY A&OX4 AT START OF SHIFT. ABLE TO MAKE NEEDS KNOWN. WOKE DURING THE NIGHT AND TALK WAS NON-SENSICAL AND PT WAS CONFUSED BUT REDIRECTABLE. ONCE PT WAS ABLE TO USE THE RESTROOM SHE WENT RIGHT BACK TO SLEEP COMFORTABLY IN HER BED. PT HAS WORN HER CPAP ALL NIGHT W/4 LPM O2 BLED IN AND TOLERATED WELL. O2 SATS HAVE REMAINED BETWEEN 91-94%. PT CURRENTLY SLEEPING IN BED AT LOWEST POSITION WITH CPAP ON AND CALL LIGHT WITHIN REACH.
[2025-05-25 06:01] VITALS: BP 121/67
[2025-05-25 07:31] VITALS: BP 131/69
[2025-05-25 15:22] VITALS: BP 126/84
--- NOTE | 2025-05-25 17:58 | NUR ---
NOTE PT AWAKE. UP TO CHAIR. SHE REPORTED WEARING HWER CPAP THROUGH THE NIGHT. MUCH LESS SLEPPY THIS MORNING. SAT UP AT BEDSIDE FOR BREAKFAST. VSS. NO IV. WEANED TO 2L N/C. SAT 92%. LIDOCAINE PATCH TO LEFT SIDE OF HER LUMBAR SPINE. BED LOW AND LOCKED. CALL LIGHT WITH IN REACH.
[2025-05-25 20:05] VITALS: BP 162/77
[2025-05-26 03:43] VITALS: BP 135/73
--- NOTE | 2025-05-26 04:53 | NUR ---
SHIFT SUMMARY: PT AOX4, IND IN THE ROOM. TOOK HER CPAP OFF IN THE MIDDLE OF THE NIGHT ON A FEW OCCASIONS. CLAIMS SHE DOESNT KNOW WHEN. OTHERWISE, TOLERATING MEDICATIONS WELL, AND ABLE TO MAKE NEEDS KNOWN. NO ACUTE OVERNIGHT EVENTS. PT IN BED, BED IN LOWEST POSITION, CALL LIGHT IN REACH. CONTINUING CARE.
[2025-05-26 07:14] VITALS: BP 136/91
[2025-05-26 15:12] VITALS: BP 128/86
--- NOTE | 2025-05-26 18:05 | NUR ---
SHIFT SUMMARY PATIENT IS A&OX4. ON 2L NASAL CANNULA. AMBULATED IN HALLS WITH STAFF AND FWW X2 TODAY. MEDICATED FOR PAIN PER EMAR. NO ACUTE EVENTS THIS SHIFT. SHE CONTINUES TO BE COOPERATIVE WITH CARE, AND SHE CALLS APPROPRIATELY. BED IS LOW AND CALL LIGHT IS WITHIN REACH.
[2025-05-26 20:39] VITALS: BP 140/78
[2025-05-27 04:04] VITALS: BP 122/67
--- NOTE | 2025-05-27 04:45 | NUR ---
SHIFT SUMMARY: PT AOX4 WITH SOME FORGETFULNESS. PLEASANT AND COOPERATIVE IN CARE. CALLS APPROPRAITLEY AND ABLE TO MAKE NEEDS KNOWN. TOLERATING MEDICATIONS WELL. NO ACUTE OVERNIGHT EVENTS. TOLERATING CPAP WELL. PT IN BED RESTING, BED IN LOWEST POSITION, CALL LIGHT IN REACH. CONTINUING CARE.
[2025-05-27 07:31] VITALS: BP 137/87
[2025-05-27 16:02] VITALS: BP 126/77
--- NOTE | 2025-05-27 17:11 | NUR ---
SHIFT SUMMARY PATIENT IS A&OX4, PLEASANT AND COOPERATIVE WITH CARE. SHE IS ON 2L OF O2 VIA NASAL CANNULA, 5L BLEED IN FOR THE CPAP. SHE DID AMBULATE IN THE HALLS TODAY WITH SBA AND FWW. [facility] CAME TO EVALUATE AND LET PATIENT KNOW THEY ARE GOING TO ACCEPT HER TO LIVE THERE, PLANS TO TRANSPORT HER TO HER NEW RESIDENCE ON MONDAY. SHE IS CURRENTLY LAYING IN BED WATCHING TV. BED IS IN A LOW POSITION, BED ALARM SET. CALL LIGHT IN REACH.
[2025-05-27 19:26] VITALS: BP 141/84
[2025-05-28 04:35] VITALS: BP 133/69
--- NOTE | 2025-05-28 07:26 | NUR ---
SHIFT SUMMARY A/Ox4, VSS ON 2L, REFUSED CPAP OVERNIGHT. NO ACUTE CHANGES OVERNIGHT. PT DENIES PAIN, NAUSEA, OTHER COMPLAINTS. SAFETY PRECAUTIONS IN PLACE, CALL LIGHT IN REACH.
[2025-05-28 07:52] VITALS: BP 131/77
[2025-05-28 15:46] VITALS: BP 132/76
--- NOTE | 2025-05-28 17:30 | NUR ---
SHIFT SUMMARY PATIENT IS A&OX4, PLEASANT AND COOPERATIVE WITH CARE. SHE IS ON 2L OF O2 VIA NASAL CANNULA, 5L BLEED IN FOR CPAP AT . VISITED BY HER GUARDIAN, PLANS TO DISCHARGE TOMORROW TO [facility] WHO ACCEPTED HER YESTERDAY. SHE IS A SBA WITH FWW. NO ACUTE CHANGES THIS SHIFT. SHE IS CURRENTLY LAYING IN BED WATCHING TV. BED IS LOW WITH ALARM SET. CALL LIGHT IN REACH.
[2025-05-28 19:30] VITALS: BP 143/68
[2025-05-29 04:24] VITALS: BP 128/70
--- NOTE | 2025-05-29 06:02 | NUR ---
SHIFT SUMMARY A/Ox4, VSS ON 3L, PT USED CPAP FOR A FEW HOURS OF THE SHIFT. CONTINUOUS PULSE OX MONITORING. NO ACUTE CHANGES OVERNIGHT. SAFETY PRECAUTIONS IN PLACE, CALL LIGHT IN REACH.
[2025-05-29 07:10] VITALS: BP 111/70
[2025-05-29 15:11] VITALS: BP 147/85
--- NOTE | 2025-05-29 16:31 | NUR ---
SHIFT SUMMARY; PT A/OX4, PLEASANT, AND AMBULATES TO RESTROOM INDEPENDENTLY. PT HAS S/SXS OF NEW ACUTE PAIN IN HER LOWER ABD, DESCRIBED SHARP. PT MEDICATED PER EMAR. PT STATES PAIN HAS SUBSIDED. PT REPORTS HAVING 1 NORMAL BM X 1 DAY AGO. AFTER AMBULATING TO RESTROOM AND BACK TO BED, PT THEN REPORTED "SPRAINING" HER BACK AND REQUESTED SOMETHING FOR PAIN. PT MEDICATED PER EMAR. PT MAINTAINING SAT OF 92-94% W/ 4L O2 NC. VSS. BED IN LOW POSITION AND CALL LIGHT WITHIN REACH.
[2025-05-29 19:24] VITALS: BP 129/83
[2025-05-30 04:40] VITALS: BP 121/70
--- NOTE | 2025-05-30 07:36 | NUR ---
SHIFT SUMMARY A/Ox4, VSS ON 2L. PT REFUSED CPAP OVERNIGHT. UP WITH SBA/FWW. NO ACUTE CHANGES OVERNIGHT. PT REMAINS OPTIMISTIC ABOUT DISCHARGE. SAFETY PRECAUTIONS IN PLACE, CALL LIGHT IN REACH.
[2025-05-30 08:21] VITALS: BP 117/70
--- NOTE | 2025-05-30 14:09 | NUR ---
PT STATES SHE FEELS CRUMMY, GI UPSET. NO FEVER. PRN TUMS GIVEN AND TYLENOL THIS SHIFT.
[2025-05-30 15:48] VITALS: BP 141/76
[2025-05-30 19:27] VITALS: BP 137/73
--- NOTE | 2025-05-30 19:32 | NUR ---
SUMMARY PT STARTED SHIFT NOT FEELING GREAT. STATED SHE FELT CRUMMY AND SLIGHTLY NAUSEAS WHILE EATING. NO FEVERS NOTED. PRN TYLENOL GIVEN THIS AM THEN PRN TUMS GIVEN RIGHT AFTER LUNCH. PT UP TO BATHROOM TODAY BUT DID NOT FEEL UP TO WALKING IN HALLS. PRN TYLENOL WAS GIVEN AGAIN IN THE AFTERNOON AFTER AN ORAL TEMP WAS CHECKED AND WAS 98.0 APPROX 6 HOURS AFTER FIRST DOSE. 2L NC MAINTAININS O2 SATS WHILE AWAKE. CPAP WHILE NAPPING TOLERATED. STILL PENDING PLACEMENT. NO VISITORS TODAY. AT SHIFT CHANGE PT REPORTS SHE HAD A BOWEL MOVEMENT WHICH HELPED WITH GI UPSET. A/OX4, PLEASANT AND COOPERATIVE WITH CARE.
[2025-05-31 04:36] VITALS: BP 126/73
--- NOTE | 2025-05-31 05:55 | NUR ---
SHIFT SUMMARY WEARING PRN 2L NC IN EVENING, TRANSITIONS TO CPAP WITH 2L BLED IN MULTIPLE TIMES IN NIGHT. DOES DE-SAT ONCE TO 84% ON CPAP WITH 2L WHILE SUPINE AND CHIN TUCKED INTO NECK. SPO2 ON CONTINUOUS PULSE OX RISES >=90% FOR REMAINDER OF EVENING ON 3L BLED IN CPAP AND/OR 2L NC USE. PT AMBULATES WITH STEADY GAIT TO RESTROOM WITH 1P SBA. DOES REQUIRE 1 DOSE OF PRN NORCO FOR GENERALIZED ACHES ADN B/L LOWER ABDOMEN ACHING. HAS GUARDIAN IN PLACE. AFTER LAST LTC PLACEMENT FELL THROUGH, CURRENTLY AWAITING NEW PLACEMENT.
[2025-05-31 15:30] VITALS: BP 134/88
--- NOTE | 2025-05-31 18:09 | NUR ---
SUMMARY- PT A/O X4, WITHDRAWN AND FLAT AFFECT, INTERACTS WITH STAFF APPROPRIATE. ENCOURAGED TODAY TO GET UP AND AMBULATE WITH STAFF, PT PUT IT OFF AGAIN AND AGAIN PROMISING TO GET UP; FINALLY AT 1530 SHE FLAT OUT REFUSED TO GET UP ALL DAY, STATING SHE WOULD DO IT TOMORROW. STATES SHE KNOWS HER BODY AND SHE WONT GET UP TODAY. AMBULATED TO BATHROOM INDEPENDANT A FEW TIMES TODAY. REFUSED TO EVEN GET INTO A CHAIR FOR MEALS. TOLERATING FOOD AND FLUID- WILL ONLY DRINK PEPSI AND REFUSES WATER. EDUCATION ON THE ILL EFFECTS OF PROLONGED CONTINUAL SUGAR ON HER SYSTEM. STATES SHE KNOWS AND DOESNT CARE. PT C/O PAIN R ABD INTO R LOW BACK, ALSO FIBROMYALGIA PAIN IN MUSCLES- CHRONIC PAIN MANAGED WITH LYRICA, STATES ADQ RELEIF. O2 2L, SATS 94-96%. STATES REGULARITY WITH BOWEL MOVEMENTS AND HAD ONE TODAY. WILL REPORT TO NOC DAVID
[2025-05-31 19:20] VITALS: BP 145/83
[2025-06-01 04:04] VITALS: BP 126/65
--- NOTE | 2025-06-01 04:40 | NUR ---
SHIFT SUMMARY PT A&Ox4 AND PLEASANT. PT REPORTED FEELING BETTER THAN EARLIER IN THE DAY AND DECLINED NEED FOR PAIN MEDICATION. PT CONTINUES TO USE 2L OF OXYGEN DURING THE DAY AND THE CPAP AT NIGHT. NO ACUTE CHANGES. VSS. BED IN LOWEST POSITION AND CALL LIGHT IN REACH.
[2025-06-01 07:53] VITALS: BP 129/85
[2025-06-01 16:19] VITALS: BP 145/81
[2025-06-01 19:32] VITALS: BP 130/73
--- NOTE | 2025-06-01 19:47 | NUR ---
SUMMARY- PT A/O X4, INDEPENDANT TO BATHROOM. USES CALL LIGHT APPROPRIATELY. TOLERATING FOOD AND FLUID. REFUSES TO AMBULATE IN THE HALLS ORDERED PER MD. PT ALLOWED STAFF TO ASSIST HER WITH A SHOWER TODAY HER LAST ONE DOCUMENTED WAS 05/23. PT RUBI REFUSES CARE. PAIN CONTROLLED WITH ROUTINE LYRICA. NO PRNS TODAY. REPORTED TO JAYDA. PLAN FOR DC TO [facility] THIS COMING MONDAY, ETHANOL OPERATOR WORKING ON THIS ENDEAVOR.
[2025-06-02 03:10] VITALS: BP 121/70
--- NOTE | 2025-06-02 04:43 | NUR ---
SHIFT SUMMARY 64 YR F ADMITTED ON 01/21/25. FULL CODE. NO ACUTE CHANGES THIS SHIFT. PT LAYED FLAT ON HER BACK TO SLEEP AND O2 SATS DROPPED TO 70'S AND LOW 66 AT ONE POINT, EVEN WITH CPAP ON. HOB WAS BROUGHT BACK UP AND O2 SATS WENT RIGHT BACK TO 90'S. PT WAS EDUCATED ON THIS AND ADVISED TO NOT PUT HER BED BACK SO FAR. PT STATED SHE UNDERSTANDS. INDEPENDANT TO THE BATHROOM AND ABLE TO MAKE HER NEEDS KNOWN. BED IN LOW POSITION AND CALL LIGHT IN REACH.
[2025-06-02 07:40] VITALS: BP 132/83
[2025-06-02 15:59] VITALS: BP 114/62
--- NOTE | 2025-06-02 18:23 | NUR ---
PT A/OX4. PLEASANT AND COOPERATIVE WITH CARE. PAIN HAS BEEN MEDICATED PER EMAR. NO ACUTE NEEDS AT THIS TIME.
[2025-06-02 20:09] VITALS: BP 140/78
[2025-06-03 04:34] VITALS: BP 122/67
--- NOTE | 2025-06-03 06:05 | NUR ---
SHIFT SUMMARY 64 YR F. FULL CODE. RT ATTEMPTED A SLEEP STUDY THIS SHIFT BUT WAS UNABLE TO COMPLETE IT DUE TO PT GETTING UP TO THE BATHROOM AND TAKING OFF HER FINGER MONITOR. RT STATED THAT THE MONITOR MUST STAY ON AT ALL TIMES AND THAT THEY WOULD TRY THE STUDY AGAIN TONIGHT. PT DESATS WHEN SHE LAYS FLAT ON HER BACK IN THE BED AND GETS DOWN TO LOW 60'S. SHE QUICKLY RECOVERS WHEN SHE IS SAT UP. CPAP IS WORN AT NIGHT. NO OTHER CHANGES TO REPORT. BED IN LOW POSITION AND CALL LIGHT IN REACH.
[2025-06-03 07:50] VITALS: BP 134/70
[2025-06-03 15:07] VITALS: BP 128/79
--- NOTE | 2025-06-03 17:49 | NUR ---
SHIFT SUMMARY; PT A/OX4, PLEASANT, AND INDEPENDENT TO THE RESTROOM. PT ON 1.5 L O2 NC W/ O2 SATS >90%. RESPIRATORY NOTIFIED THIS RN THAT HOME O2 EVAL WILL OCCUR TOMORROW. PT MEDICATED PER EMAR. BED IN LOW POSITION AND CALL LIGHT WITHIN REACH. VSS.
[2025-06-03 19:26] VITALS: BP 124/62
--- NOTE | 2025-06-04 03:27 | NUR ---
SHIFT SUMMARY: PT IS AOX4 AND ABLE TO MAKE NEEDS KNOWN. PT VOIDING WELL THROUGH OUT THE NIGHT AND IND IN ROOM. PT ON CONTINOUS PULSE OX AND 3L NC. NO ACUTE CHANGES THIS SHIFT.
[2025-06-04 04:11] VITALS: BP 117/67
[2025-06-04 07:42] VITALS: BP 115/58
--- NOTE | 2025-06-04 16:44 | NUR ---
PT A/OX4. PLEASANT AND COOPERTIVE WITH CARE. PLAN IS TO D/C [facility] TOM[facility]. PAIN HAS BEEN TREATED PER EMAR. NO ACUTE CHANGES THIS SHIFT.
[2025-06-04 19:22] VITALS: BP 136/91
[2025-06-05 04:13] VITALS: BP 125/77
--- NOTE | 2025-06-05 05:11 | NUR ---
SHIFT SUMMARY: PT IS AOX4 AND IND IN ROOM. PT SLEPT MOST OF THE NIGHT. NO ACUTE CHANGES THIS SHIFT
[2025-06-05 07:50] VITALS: BP 163/85
--- NOTE | 2025-06-05 11:11 | NUR ---
DISCHARGE NOTE: PATIENT D/C'D [facility] WITH GUARDIAN DANYA. DC PACKET AND EDUCATION GIVEN TO DANYA AND ALL BELONGINGS PACKED UP AND SENT. PATIENT AND GUARDIAN DENY ANY FURTHER QUESTIONS OR CONCERNS.
--- NOTE | 2025-06-05 11:54 | NUR ---
Spiritual Care - Pre discharge visit. Pt. is dressed and awaiting discharge when she welcomes my visit. Pt. verbalized that she was being transferred to [facility], and displayed evidence of the reality of that move. Pastoral care and encouragement is given. Pt. responded with a sense of this being the best thing for her, and had an uplifted countenance. Prayed with Pt. Pt. verbalized gratitude for the spiritual care visit.
== END 2025-06-05 11:06 | disposition home or self-care (01) | DRG 57 ==
LOC: ER 15:54 → MEDS 15:55 → DELPENDDIS 01-16 11:13 → ENPENDDIS 01-16 11:13 → MEDS 01-19 15:15 → ENPENDDIS 06-04 15:47 → MEDS 06-05 11:06
PROVIDERS: Family Medicine; Internal Medicine; Student in an Organized Health Care Education/Training Program; ADMIT Student in an Organized Health Care Education/Training Program
PROC: 3E03329 Introduction of Other Anti-infective into Peripheral Vein, Percutaneous Approach (ICD-10-PCS; principal; 2025-01-14)
PROC: 3E0234Z Introduction of Serum, Toxoid and Vaccine into Muscle, Percutaneous Approach (ICD-10-PCS; 2025-05-05)
DX: G30.9 Alzheimer's disease, unspecified (principal); F23 Brief psychotic disorder; N13.6 Pyonephrosis; E87.1 Hypo-osmolality and hyponatremia; N17.9 Acute kidney failure, unspecified; F02.82 Dementia in other diseases classified elsewhere, unspecified severity, with psychotic disturbance; E46 Unspecified protein-calorie malnutrition; J96.11 Chronic respiratory failure with hypoxia; F25.0 Schizoaffective disorder, bipolar type; M79.7 Fibromyalgia; Z66 Do not resuscitate; Z23 Encounter for immunization; F32.A Depression, unspecified; F41.9 Anxiety disorder, unspecified; G47.00 Insomnia, unspecified; J44.89 Other specified chronic obstructive pulmonary disease; M54.50 Low back pain, unspecified; G89.29 Other chronic pain; R19.7 Diarrhea, unspecified; B96.20 Unspecified Escherichia coli [E. coli] as the cause of diseases classified elsewhere; I10 Essential (primary) hypertension; K59.00 Constipation, unspecified; E78.5 Hyperlipidemia, unspecified; G47.33 Obstructive sleep apnea (adult) (pediatric); B37.2 Candidiasis of skin and nail; R11.2 Nausea with vomiting, unspecified; Z91.198 Patient's noncompliance with other medical treatment and regimen for other reason; Z90.721 Acquired absence of ovaries, unilateral; Z98.890 Other specified postprocedural states; Z87.891 Personal history of nicotine dependence; Z79.899 Other long term (current) drug therapy; Z88.0 Allergy status to penicillin; W18.30XA Fall on same level, unspecified, initial encounter
CPT/HCPCS: 36415; 71045; 73502; 74018; 74177; 76770; 80048; 80053; 80069; 81001; 82803; 82947; 83690; 83735; 83880; 84100; 84145; 85025; 85027; 87077; 87086; 87186; 94640; 94660; 94664; 94760; 94762; 96372; 96374-59; 96375; 96376; 97165; 99285-25; A9270; G0378; J0696; J1200; J1630; J1885; J2060; J2270; J7030; J7050; J7120; Q0177; Q9967

== ENCOUNTER 2025-07-12 13:34 | Inpatient (IN) | payer OTHER ==
[~2025-07-12] VITALS: Ht 165.1 cm; Wt 109.5 kg
[2025-07-12] VITALS (16 sets, daily range): BP systolic 104–139; BP diastolic 54–77
[~2025-07-12 13:34] MED LIST changes: +ANORO ELLIPTA1 EACH INH; +ARIPIPRAZOLE OD15 MG PO; +Acetaminophen650 M1 PO; +BUTALB-ACETAMI1 EAC7 PO; +CEPH500 PO; +DONEPEZIL HCL10 MG PO; +IBUP800 PO; +IPRAT-ALBUT 0.5-3 ML INH; +LACT10SY PO; +MELA3 PO; +MEMA10 PO; +MIRALAX17 GM PO; +NYSTATIN CREAM TOP; +ONDA4ODT MM; +PREG75 PO; +SENNA PLUS PO; +Seroquel Xr50 MG PO; +TRAZ100 PO; -[UNRECOGNIZED DRUG - CODE] PO
[2025-07-12 14:33] LABS: BASOPHILS ABSOLUTE AUTO 0.11 K/mm3 (0.00-0.23); BASOPHILS PERCENT AUTO 0 % (0-2); EOSINOPHILS ABSOLUTE AUTO 0.07 K/mm3 (0.00-0.68); EOSINOPHILS PERCENT AUTO 0 % (0-6); Hematocrit 41.8 % (33.0-51.0); Hemoglobin 13.0 g/dL (11.5-16.0); IMMATURE GRAN ABSOLUTE AUTO 0.30 K/mm3 (0.00-0.10); IMMATURE GRAN PERCENT AUTO 1 % (0-1); LYMPHOCYTES ABSOLUTE AUTO 1.53 K/mm3 (0.84-5.20); LYMPHOCYTES PERCENT AUTO 6 % (21-46); MONOCYTES ABSOLUTE AUTO 2.27 K/mm3 (0.16-1.47); MONOCYTES PERCENT AUTO 8 % (4-13); Mean Corpuscular HGB Conc 31.1 g/dL (31.5-36.5); Mean Corpuscular Volume 90 fL (80-100); NEUTROPHILS ABSOLUTE AUTO 23.18 K/mm3 (1.96-9.15); NEUTROPHILS PERCENT AUTO 84 % (41-73); NRBC ABSOLUTE 0.00 K/mm3 (0.00-0.02); NRBC Auto 0.0 /100 WBC (0.0-0.2); Platelet Count 229 K/mm3 (150-400); RDW Coefficient Variation 15.9 % (11.7-14.2); RDW Standard Deviation 52.4 fL (35.1-46.3)
[2025-07-12 14:54] LABS: Alanine Aminotransfer (ALT/SGP 31 U/L (12-78); Albumin, Blood 2.9 g/dL (3.4-5.0); Albumin/Globulin Ratio 0.7 (0.8-1.8); Anion Gap 11 mmol/L (3-11); Aspartate Aminotrans (AST/SGOT 83 U/L (12-37); Bilirubin, Total 0.4 mg/dL (0.1-1.0); Blood Urea Nitrogen 18 mg/dL (8-24); CO2, Blood 25 mmol/L (21-32); Calcium, Blood 8.4 mg/dL (8.5-10.1); Chloride, Blood 103 mmol/L (98-108); Creatinine, Blood 1.53 mg/dL (0.40-1.00); Ethanol (Alcohol), Blood, Med <3 mg/dL; Globulin, Blood 4.4 g/dL (2.2-4.0); Glucose, Blood 140 mg/dL (70-99); Potassium, Blood 3.9 mmol/L (3.5-5.5); Sodium, Blood 135 mmol/L (136-145); Total Protein, Blood 7.3 g/dL (6.4-8.2)
[2025-07-12] MEDS ORDERED: CefTRIAXone Sodium 1,000 MG in NS 50 ML IV ONE (15:10)
[2025-07-12] MEDS ORDERED: NS 1,000 ML IV SCH ×3 (15:15→17:00)
[2025-07-12 15:40] LABS: pH Blood Venous 7.31 (7.34-7.37)
[2025-07-12 16:03] LABS: Source, Urine Straight Cath
[2025-07-12 16:11] LABS: Bilirubin, Urine Neg (Neg); Color, Urine Yellow (P-Yellow); Glucose Qualitative, Urine Neg (Neg); Ketones, Urine Neg (Neg); Leukocyte Esterase, Urine 3+ (Neg); Protein, Urine 2+ (Neg); Specific Gravity, Urine 1.015 (1.003-1.022); Urobilinogen, Urine NORM (Normal)
[2025-07-12 16:16] LABS: Influenza A, PCR NEGATIVE (NEGATIVE); Influenza B, PCR NEGATIVE (NEGATIVE); Resp Syncytial Virus, PCR NEGATIVE (NEGATIVE); SARS-Cov-2 (COVID-19) PCR, MMC NEGATIVE (NEGATIVE)
[2025-07-12 16:26] LABS: Red Blood Cells, Urine 0-2 /hpf (0-2); White Blood Cells, Urine TNTC /hpf (0-5)
[2025-07-12] MEDS ORDERED: Ondansetron HCl 2 MG / ML 2ML Vial IV PRN ×2 (16:40→21:25)
[2025-07-12] MEDS ORDERED: FLU VACC TS2025-26(6MOS UP)/PF 45 MCG/0.5 ML SYRINGE IM SCH (16:40)
[2025-07-12] MEDS ORDERED: Magnesium Hydroxide Conc 10 ML UDC PO PRN (16:40)
[2025-07-12 16:45] LABS: U Amphetamine Screen Not Detected; U Barbiturate Screen Not Detected; U Benzodiazapine Screen DETECTED; U Buprenorphine Screen Not Detected; U Cannabinoids Screen Not Detected; U Cocaine Screen Not Detected; U Methadone Screen Not Detected; U Methamphetamine Screen Not Detected; U Opiates Screen DETECTED; U Oxycodone Screen Not Detected; U Phencyclidine Screen Not Detected
[2025-07-12] MEDS ORDERED: HYDROcodone 5-APAP 325 TAB PO PRN (18:10)
--- NOTE | 2025-07-12 19:10 | NUR ---
ADMIT NOTE REPORT FROM PICK UP WORKER, PT TO ROOM AT APPROX 1830; REDNESS NOTED TO COCCYX, BLANCABLE, MEPILEX IN PLACE; REDNESS UNDER BREASTS AND PANIS. PICTURES IN CHART. PT ON 5L O2 VIA NC, SPO2 >90%. BP WNL. RESP RATE 24. HR SINUS TACH 100'S. TEMP 99.9 TEMPORAL. CLARIFIED ORDERS FOR DIET ORDER, NPO UNTIL UROLOGY CONSULTS, DR ROGERS AT BEDSIDE AT SHIFT CHANGE, PLANS FOR PROCEDURE THIS EVENING. REPORT GIVEN TO ONCOMING RN.
[2025-07-12] MEDS ORDERED: Ipratropium/Albuterol SulF 2.5-0.5MG/3 ML Amp ONE (20:15)
--- NOTE | 2025-07-12 20:18 | NUR ---
PT TO PACU VIA BED FROM PCU11 AT 2014. DROWSY, BUT COOPERATIVE. DIFFICULT TO KEEP AWAKE/O2/6L/NC FROM PCU. SURGICAL PACK COMPLETE. SPRING ACEVEDO ORDERED DUONEB STAT. SURGICAL HAT/PAS SLEEVES/BP CUFF IN PLACE. WILL CONTINUE TO MONITOR PT WHILE IN MY CARE.
--- NOTE | 2025-07-12 20:57 | NUR ---
PT TO OR3 VIA BED IN STABLE CONDITION AT 2100.
[2025-07-12] MEDS ORDERED: Lactobacil 2-S.Thermo-Bifido 1 1 Cap PO SCH (21:00)
[2025-07-12] MEDS ORDERED: FentaNYL Citrate 50 MCG/ML 2 ML Injection ONE (21:01)
[2025-07-12] MEDS ORDERED: CeFAZolin Sodium 1000 mg Vial ONE ×2 (21:09→21:11)
[2025-07-12] MEDS ORDERED: Phenylephrine HCl 100 MCG/ML-NS 10MLSYR (1MG/10ML) ONE ×2 (21:09→21:16)
[2025-07-12] MEDS ORDERED: Ondansetron HCl 2 MG / ML 2ML Vial ONE (21:09)
[2025-07-12] MEDS ORDERED: Dexamethasone Sod Phos 10 MG/ML 1ML VIAL ONE (21:09)
[2025-07-12] MEDS ORDERED: Metoclopramide HCl 5MG / ML 2ML Vial ONE (21:09)
[2025-07-12] MEDS ORDERED: FentaNYL Citrate 50 MCG/ML 2 ML Injection IV PRN ×2 (21:20→21:25)
[2025-07-12] MEDS ORDERED: Albuterol 2.5 MG/3 ML VIAL INH PRN (21:20)
[2025-07-12] MEDS ORDERED: HYDROmorphone HCl/Pf 1MG SYR IV PRN ×2 (21:25)
[2025-07-12] MEDS ORDERED: ANORO ELLIPTA1 EAC1 INH (22:43)
[2025-07-12] MEDS ORDERED: ANORO ELLIPTA1 EACH INH (22:44)
[2025-07-12] MEDS ORDERED: HYDR1TAB94 PO (22:49)
[2025-07-12] MEDS ORDERED: LOPE2C PO (22:51)
[2025-07-12] MEDS ORDERED: LORA2 PO (22:53)
[2025-07-12] MEDS ORDERED: NARCAN4 M1 (22:56)
[2025-07-12] MEDS ORDERED: TRIA15CR3 TOP (23:02)
[2025-07-13] VITALS (10 sets, daily range): BP systolic 98–119; BP diastolic 52–68
[2025-07-13 04:25] LABS: BASOPHILS ABSOLUTE AUTO 0.05 K/mm3 (0.00-0.23); BASOPHILS PERCENT AUTO 0 % (0-2); EOSINOPHILS ABSOLUTE AUTO 0.00 K/mm3 (0.00-0.68); EOSINOPHILS PERCENT AUTO 0 % (0-6); Hematocrit 37.5 % (33.0-51.0); Hemoglobin 11.7 g/dL (11.5-16.0); IMMATURE GRAN ABSOLUTE AUTO 0.23 K/mm3 (0.00-0.10); IMMATURE GRAN PERCENT AUTO 1 % (0-1); LYMPHOCYTES ABSOLUTE AUTO 1.52 K/mm3 (0.84-5.20); LYMPHOCYTES PERCENT AUTO 7 % (21-46); MONOCYTES ABSOLUTE AUTO 0.63 K/mm3 (0.16-1.47); MONOCYTES PERCENT AUTO 3 % (4-13); Mean Corpuscular HGB Conc 31.2 g/dL (31.5-36.5); Mean Corpuscular Volume 89 fL (80-100); NEUTROPHILS ABSOLUTE AUTO 18.58 K/mm3 (1.96-9.15); NEUTROPHILS PERCENT AUTO 89 % (41-73); NRBC ABSOLUTE 0.00 K/mm3 (0.00-0.02); NRBC Auto 0.0 /100 WBC (0.0-0.2); Platelet Count 198 K/mm3 (150-400); RDW Coefficient Variation 15.6 % (11.7-14.2); RDW Standard Deviation 51.0 fL (35.1-46.3)
[2025-07-13 05:08] LABS: Anion Gap 7.0 mmol/L (3-11); Blood Urea Nitrogen 14.0 mg/dL (8-24); CO2, Blood 27.0 mmol/L (21-32); Calcium, Blood 8.1 mg/dL (8.5-10.1); Chloride, Blood 109.0 mmol/L (98-108); Creatinine, Blood 0.99 mg/dL (0.40-1.00); Glucose, Blood 214.0 mg/dL (70-99); Potassium, Blood 3.9 mmol/L (3.5-5.5); Sodium, Blood 139.0 mmol/L (136-145)
--- NOTE | 2025-07-13 06:16 | NUR ---
PT ARRIVED FROM THE ED AROUND 183. UROLOGIST CAME TO BEDSIDE DURING BEDSIDE REPORT TO INFORM PT THAT SHE WOULD HAVE STENT PLACEMENT PERFORMED TONIGHT. PT CONSENTED. PT LEFT THE FLOOR AROUND 1999 AND RETURNED TO THE FLOOR AT 2204. PT WAS LETHARGIC BUT STABLE. HOLBROOK REPLACED IN OR. PT RESTED THROUGHOUT THE NIGHT. VSS. SCDs ON. HOLBROOK PATENT AND DRAINING. BED ALARM ON. BED LOCKED IN LOWEST POSITION. CALL LIGHT WITHIN REACH.
[2025-07-13] MEDS ORDERED: NS 1,000 ML IV SCH (09:00)
[2025-07-13] MEDS ORDERED: Enoxaparin 40 MG/0.4 ML SYR SC SCH (09:00)
[2025-07-13] MEDS ORDERED: Ipratropium/Albuterol SulF 2.5-0.5MG/3 ML Amp INH PRN (09:55)
[2025-07-13] MEDS ORDERED: Albuterol HFA200 ACT/6.7 GM INH INH PRN (10:10)
[2025-07-13] MEDS ORDERED: Ipratropium/Albuterol SulF 2.5-0.5MG/3 ML Amp INH SCH (10:15)
--- NOTE | 2025-07-13 16:20 | NUR ---
PATIENT IS ALERT AND ORIETED AND COOPERATIVE WITH CARE. ACCORDING TO THE PATIENT'S SISTER, THE PATIENT HAS A DX OF DEMENTIA THOUGH THAS NOT NOTED IN THE H&P. SHE IS ON 5L O2 VIA NC WITH A CPAP AND 5L BLEED IN AT NIGHT. STATUS MED NO TELE. SHE IS POD 1 FROM A CYSTOSCOPY AND STENT PLACEMENT WIH DR. RAMIREZ. HOLBROOK IS IN PLACE AND DRAINING DARK YELLOW URINE. PATIENT C/O PAIN IN HER MICKY AREA AND GENERALIZED PAIN. PAIN IS MANAGED PER EMAR AND WITH A HEATING PAD. REDNESS UNDER HR BREASTS, TREATED PER EMAR. L. HAND IV INFUSIN NS AT 100 ML/HR. PATIENT STOOD AND IVOTED TO THE C WITH SBA, FWW AND GAIT BELT. NO BM TODAY. TOLERATED A REG DIET, SOME NAUSEA THIS AFTERNOON TREATED PER EMAR. FROM [facility]. THE PATIENT'S SISTER WAS UPDATED ON HER SITUATION AND PLAN OF CARE. WILL CONTINUE TO MONITOR.
[2025-07-13] MEDS ORDERED: CefTRIAXone Sodium 1,000 MG in NS 100 ML IV SCH (18:00)
--- NOTE | 2025-07-13 18:38 | NUR ---
TRANSFER NOTE: PT TRANSFERED TO ROOM 337 FROM PCU. A&OX4. IV ABX RUNNING PER SEP. PT DENIES ANY PAIN. HOLBROOK CATHETER IN PLACE DRAINING TO GRAVITY. VSS. CPAP BROUGHT WITH PT. CURRENTLY ON 5L O2, WHICH IS BASELINE FOR HER. ORIENTED TO ROOM AND SURROUNDINGS. LYING IN BED. BED LOCKED AND IN THE LOWEST POSITION. CALL LT WITHIN REACH. REPORT TO ONCOMING NURSE.
[2025-07-13] MEDS ORDERED: Nystatin/Triamcinolone Ointment 15 GM TOP SCH (21:00)
[2025-07-14 04:36] VITALS: BP 96/62
--- NOTE | 2025-07-14 04:40 | NUR ---
SHIFT SUMMARY 65 YR F TRANSFERED TO MEDICAL UNIT FROM PCU ON 07/13/25. FULL CODE. NO ACUTE CHANGES THIS SHIFT. PT HAS SLEPT FOR MOST OF THIS SHIFT AND IS NOT EASILY AROUSED. WHILE AWAKE SHE IS A&O X4 AND IS PLEASANT, COOPERATIVE WITH CARE. HOLBROOK IS PATENT AND DRAINING YELLOW URINT TO GRAVITY. NO C/O PAIN OR DISCOMFORT. PT IS USING HOME CPAP FOR NOC. BED IN LOW POSITION AND CALL LIGHT IN REACH.
[2025-07-14 06:53] LABS: BASOPHILS ABSOLUTE AUTO 0.02 K/mm3 (0.00-0.23); BASOPHILS PERCENT AUTO 0 % (0-2); EOSINOPHILS ABSOLUTE AUTO 0.03 K/mm3 (0.00-0.68); EOSINOPHILS PERCENT AUTO 0 % (0-6); Hematocrit 35.2 % (33.0-51.0); Hemoglobin 10.9 g/dL (11.5-16.0); IMMATURE GRAN ABSOLUTE AUTO 0.12 K/mm3 (0.00-0.10); IMMATURE GRAN PERCENT AUTO 1 % (0-1); LYMPHOCYTES ABSOLUTE AUTO 2.31 K/mm3 (0.84-5.20); LYMPHOCYTES PERCENT AUTO 18 % (21-46); MONOCYTES ABSOLUTE AUTO 0.92 K/mm3 (0.16-1.47); MONOCYTES PERCENT AUTO 7 % (4-13); Mean Corpuscular HGB Conc 31.0 g/dL (31.5-36.5); Mean Corpuscular Volume 89 fL (80-100); NEUTROPHILS ABSOLUTE AUTO 9.48 K/mm3 (1.96-9.15); NEUTROPHILS PERCENT AUTO 74 % (41-73); NRBC ABSOLUTE 0.00 K/mm3 (0.00-0.02); NRBC Auto 0.0 /100 WBC (0.0-0.2); Platelet Count 192 K/mm3 (150-400); RDW Coefficient Variation 15.2 % (11.7-14.2); RDW Standard Deviation 49.6 fL (35.1-46.3)
[2025-07-14 07:10] LABS: Anion Gap 6.0 mmol/L (3-11); Blood Urea Nitrogen 15.0 mg/dL (8-24); CO2, Blood 29.0 mmol/L (21-32); Calcium, Blood 8.4 mg/dL (8.5-10.1); Chloride, Blood 109.0 mmol/L (98-108); Creatinine, Blood 0.78 mg/dL (0.40-1.00); Glucose, Blood 163.0 mg/dL (70-99); Potassium, Blood 3.5 mmol/L (3.5-5.5); Sodium, Blood 140.0 mmol/L (136-145)
[2025-07-14 07:33] VITALS: BP 108/62
[2025-07-14] MEDS ORDERED: CEFP200 PO (13:28)
[2025-07-14] MEDS ORDERED: VISBIOME 112.51 EACH PO (13:29)
--- NOTE | 2025-07-14 15:09 | NUR ---
DISCHARGE 1410 PT AOX3/4, COOPERATIVE, ABLE TO MAKE NEEDS KNOWN. GUARDIAN WAS MADE AWARE OF PT DISCHARGE. PT FRIEND "CAROLYN" TRANSPORTED PT BACK [facility]. CATHETER DC'D BY INVOICE CLASSIFICATION CLERK, IV DC'D BY INVOICE CLASSIFICATION CLERK. PT WAS ON 5L O2, THIS RN TITRATED O2 DOWN TO 2L O2. CAROLYN BROUGHT PORTABLE O2 FOR TRANSPORT. NEW MEDS FAXED TO [facility]. [facility] WAS MADE AWARE OF PT DC TODAY. ROOM STRIPPED. THIS RN WENT OVER DC PAPERWORK WITH PT AND FRIEND.
== END 2025-07-14 14:15 | disposition home or self-care (01) | DRG 853 ==
LOC: ER 13:34 → PCU 16:35 → MEDS 16:35 → PCU 18:30 → MEDS 07-13 18:22 → ENPENDDIS 07-14 11:34 → MEDS 07-14 14:15
PROVIDERS: Emergency Medicine; Urology; ADMIT Student in an Organized Health Care Education/Training Program
PROC: BT1F1ZZ Fluoroscopy of Left Kidney, Ureter and Bladder using Low Osmolar Contrast (ICD-10-PCS; 2025-07-12)
PROC: 3E03329 Introduction of Other Anti-infective into Peripheral Vein, Percutaneous Approach (ICD-10-PCS; 2025-07-12)
PROC: 0T778DZ Dilation of Left Ureter with Intraluminal Device, Via Natural or Artificial Opening Endoscopic (ICD-10-PCS; principal; 2025-07-12 21:00)
DX: A41.9 Sepsis, unspecified organism (principal); G92.8 Other toxic encephalopathy; J96.11 Chronic respiratory failure with hypoxia; N13.6 Pyonephrosis; N17.9 Acute kidney failure, unspecified; R65.20 Severe sepsis without septic shock; J44.9 Chronic obstructive pulmonary disease, unspecified; I10 Essential (primary) hypertension; M79.7 Fibromyalgia; F25.9 Schizoaffective disorder, unspecified; F41.9 Anxiety disorder, unspecified; G47.33 Obstructive sleep apnea (adult) (pediatric); E78.5 Hyperlipidemia, unspecified; G89.29 Other chronic pain; R33.9 Retention of urine, unspecified; F25.0 Schizoaffective disorder, bipolar type; Z88.0 Allergy status to penicillin; Z79.899 Other long term (current) drug therapy; Z87.891 Personal history of nicotine dependence
CPT/HCPCS: 36415; 51702; 71045; 74177; 80048; 80053; 80320; 81001; 82803; 83605; 85025; 87077; 87086; 87186; 87637; 94640; 94660; 94664; 94762; 96365-59; 96375-59; 99285-25; A4344; A9270; C1758; C1769; C2617; J0690; J0696; J1100; J1650; J2371; J2405; J2704; J2765; J3010; J7030; J7120; Q9967